=== PATIENT | female | born 1965 | race Caucasian/White ===

== ENCOUNTER 2020-07-30 13:56 | Outpatient (REF) | payer BC, SELFPAY ==
--- NOTE | 2020-07-30 | CT_ITS ---
EXAMINATION: CT SINUS WITHOUT CONTRAST CLINICAL INFORMATION: Nasal polyp. COMPARISON: Radiographs dated 01/17/2018; CT sinuses dated 01/26/2009. TECHNIQUE: Without the addition of intravenous contrast, multiple contiguous multidetector transaxial sections obtained through the paranasal sinuses. Multiplanar reformatted images are submitted. This CT examination was performed using dose optimization techniques as appropriate, variously including the following: *Automated exposure control *Adjustment of mA and/or kV according to patient size (this includes techniques or standardized protocols for targeted exams where dose is matched to indication/reason for exam; i.e. extremities or head) *Use of iterative reconstruction technique DLP: 108 mGy-cm FINDINGS: FRONTAL SINUSES AND DRAINAGE PATHWAYS: The bilateral frontal sinuses appear clear. There is marked mucosal thickening of the right frontoethmoidal recess. There is mild mucosal thickening of the left frontoethmoidal recess. MAXILLARY SINUSES AND DRAINAGE PATHWAYS: There is mild mucosal thickening at the bases of the bilateral maxillary sinuses. The infundibula are patent bilaterally. ETHMOID SINUSES: There is mucosal thickening of several bilateral ethmoid air cells, right greater than left. The ethmoid roofs are symmetric. SPHENOID SINUSES AND DRAINAGE PATHWAYS: The bilateral sphenoid sinus chambers show no focal mucosal thickening or fluid. The right sphenoid ostium is narrowed, and the left appears patent. The carotid canals are covered by bone. NASAL CAVITY/NASOPHARYNX: The nasal cavity is clear. There is a very mild leftward nasal septal deviation/spurring. The nasopharynx is symmetric. ADDITIONAL RELEVANT FINDINGS: No periapical disease is seen. The TMJs articulate normally. The orbits and skull base soft tissues are unremarkable. The middle ear cavities are clear. The right mastoid air cells are clear. There is opacification of numerous of the left mastoid air cells. Limited evaluation demonstrates no acute intracranial findings. IMPRESSION: 1. There is marked mucosal thickening of the right frontoethmoidal recess, and mild mucosal thickening is seen of the left frontoethmoidal recess. 2. There is mild bilateral maxillary sinusitis. 3. The bilateral ostiomeatal units appear patent. 4. There is narrowing of the right sphenoid ostium. 5. There is a very mild leftward nasal septal deviation. 6. There is opacification of numerous left mastoid air cells, which can be associated with mastoiditis.
== END 2020-07-30 13:57 | disposition home or self-care (01) ==
LOC: HO.CT 13:56
PROVIDERS: PCP Internal Medicine; Visit Provider Otolaryngology
DX: J33.9 Nasal polyp, unspecified (principal)
CPT/HCPCS: 70486

== ENCOUNTER 2021-01-11 06:32 | Outpatient (REF) | payer BC, SELFPAY ==
[2021-01-11 12:01] LABS: Alanine Aminotransferase 18 U/L (0-31); Anion Gap 13 (12-20); Aspartate Amino Transferase 14 U/L (5-31); Blood Urea Nitrogen 20 mg/dL (9-16); Calcium 9.2 mg/dL (8.4-10.2); Carbon Dioxide 29 mmol/L (22-29); Chloride 104 mmol/L (96-108); Cholesterol 208 mg/dL; Estimated Glomerular Filt Rate > 60; Glucose Fasting 88 mg/dL (60-99); HDL Cholesterol 68 mg/dL; LDL Cholesterol Calculated 107 mg/dl; Potassium 4.7 mmol/L (3.3-5.1); Sodium 141 mmol/L (135-145); Triglycerides 165 mg/dL
[2021-01-11 12:05] LABS: Free T4 (Free Thyroxine) 0.94 ng/dL (0.71-1.85); Thyroid Stimulating Hormone 0.63 uIU/mL (0.32-4.0)
== END 2021-01-11 06:33 | disposition home or self-care (01) ==
LOC: HO.HMGCLDS 06:32
PROVIDERS: PCP Internal Medicine; Visit Provider Internal Medicine
DX: E78.5 Hyperlipidemia, unspecified (principal); E03.9 Hypothyroidism, unspecified; I10 Essential (primary) hypertension
CPT/HCPCS: 36415; 80048; 80061; 84439; 84443; 84450; 84460

== ENCOUNTER 2021-01-13 16:01 | Outpatient (REF) | payer BC, SELFPAY ==
--- NOTE | ~2021-01-13 | XR_ITS ---
EXAMINATION: XR PELVIS CLINICAL INFORMATION: Paresthesia of skin COMPARISON: Bilateral hip radiographs 04/17/2019 TECHNIQUE: AP view of the pelvis. FINDINGS: There is no fracture or dislocation or destructive process. The SI joints and pubis are unremarkable. There is minor whiskering at the bilateral lateral iliac crests. The hip show no joint narrowing. Bowel gas normal. There are calcified phleboliths again seen in the lower left and right pelvis. XR/XR pelvis 1-2V IMPRESSION: Normal pelvis.
== END 2021-01-13 16:02 | disposition home or self-care (01) ==
LOC: HO.HMGCX 16:01
PROVIDERS: PCP Internal Medicine; Visit Provider Internal Medicine
DX: R20.2 Paresthesia of skin (principal); M79.609 Pain in unspecified limb
CPT/HCPCS: 72170

== ENCOUNTER 2021-01-26 13:40 | Outpatient (REF) | payer BC, SELFPAY ==
--- NOTE | ~2021-01-26 | US_ITS ---
EXAMINATION: US EXTRACRANIAL CAROTID DUPLEX, BILATERAL CLINICAL INFORMATION: History of familial heart disease COMPARISON: None TECHNIQUE: Real-time ultrasound and Doppler techniques (integrating B-mode 2-D vascular images, Doppler spectral analysis and color-flow Doppler imaging) were utilized to interrogate the extracranial carotid arteries, the vertebral arteries and proximal subclavian arteries bilaterally. The degree of stenosis is determined by criteria similar to NASCET. FINDINGS: Right Side: 1. There is calcified atherosclerotic plaque seen in the bifurcation/proximal ICA region. 2. The common carotid artery PSV proximally is 104 cm/s and distally 72 cm/s. 3. The proximal internal carotid artery velocities are 61 cm/s systolic and 18 cm/s diastolic. 4. The proximal external carotid artery PSV is 87 cm/s. 5. The vertebral artery shows antegrade flow. 6. The subclavian artery waveforms are normal. Left Side: 1. There is calcified atherosclerotic plaque seen in the bifurcation/proximal ICA region. 2. The common carotid artery PSV proximally is 97 cm/s and distally 73 cm/s. 3. The proximal internal carotid artery velocities are 62 cm/s systolic and 17 cm/s diastolic. 4. The proximal external carotid artery PSV is 64 cm/s. 5. The vertebral artery shows antegrade flow. 6. The subclavian artery waveforms are normal. US/US carotid duplex BI IMPRESSION: 1. RIGHT: Minimal, non-hemodynamically significant stenosis of the proximal right internal carotid artery corresponding to a 0-49% stenosis by velocity criteria. 2. LEFT: Minimal, non-hemodynamically significant stenosis of the proximal left internal carotid artery corresponding to a 0-49% stenosis by velocity criteria.
== END 2021-01-26 13:41 | disposition home or self-care (01) ==
LOC: HO.HMGCX 13:40
PROVIDERS: PCP Internal Medicine; Visit Provider Internal Medicine
DX: R42 Dizziness and giddiness (principal); Z86.79 Personal history of other diseases of the circulatory system
CPT/HCPCS: 93880

== ENCOUNTER 2021-03-23 09:52 | Outpatient (REF) | payer BC, SELFPAY ==
--- NOTE | 2021-03-23 09:55 | EMG_ITS ---
HISTORY: This is a 56-year-old woman with a history of ruptured thoracic disk in the past, who comes in with spasms in her legs intermittently and for a period, her legs were giving out, which they are no longer. She has hypothyroidism, hypertension and hyperlipidemia, for which she is on medications. NEUROLOGICAL EXAMINATION: Cranial nerves II through XII normal. Muscle tone and strength are normal. Reflexes symmetrical. Plantar responses are flexor. IMPRESSION: Rule out neuropathy, lumbar radiculopathy. 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 Normal EMG of the right L4-S1 innervated muscles. MD DONATO Marin/GE / [id number]
== END 2021-03-23 09:53 | disposition home or self-care (01) ==
LOC: HO.NEURO 09:52
PROVIDERS: PCP Internal Medicine; Visit Provider Internal Medicine
DX: M79.609 Pain in unspecified limb (principal); R20.2 Paresthesia of skin
CPT/HCPCS: 95885; 95912

== ENCOUNTER 2021-05-09 08:50 | Outpatient (REF) | payer BC, SELFPAY ==
--- NOTE | ~2021-05-09 | US_ITS ---
EXAMINATION: US THYROID CLINICAL INFORMATION: Nontoxic multinodular goiter. COMPARISON: None TECHNIQUE: Linear transducer grayscale and color Doppler examination with attention to the region of the thyroid. FINDINGS: SIZE: Measurements of the thyroid lobes and nodules are given in sagittal, anteroposterior and transverse dimensions respectively. Right Thyroid Lobe: 4.1 x 1.5 x 1.4 cm, volume 4.5 mL. Parenchyma: The gland echotexture is heterogeneous. Thyroid vascularity is normal. Left Thyroid Lobe: 3.3 x 1.1 x 1.2 cm, volume 2.3 mL. Parenchyma: The gland echotexture is heterogeneous. Thyroid vascularity is normal. Isthmus: 0.3 cm in maximum AP dimension. No focal thyroid nodule is seen. NODES: No lymphadenopathy is seen in the tissue surrounding the thyroid gland. US/US thyroid IMPRESSION: Diffusely heterogeneous lobulated thyroid gland with no focal nodule seen. ACR TI-RADS RECOMMENDATION REFERENCE: Ultrasound-guided fine-needle aspiration, followup ultrasound, no further follow up. * TR1 (0 point) and TR 2 (2 points): No FNA or follow up * TR3 (3 points): FNA if more than or equal to 2.5 cm in maximum dimension, followup ultrasound in 1, 3 and 5 years if 1.5 to 2.4 cm in maximum dimension. * TR4 (4-6 points): FNA if more than or equal to 1.5 cm in maximum dimension, followup ultrasound in 1, 2, 3 and 5 years if 1 to 1.4 cm in maximum dimension. * TR5 (more than or equal to 7 points): FNA if more than or equal to 1 cm in maximum dimension, followup ultrasound every year for 5 years if 0.5 to 0.9 cm in maximum dimension. * TR3, TR4 or TR5 nodules that are below the size threshold for follow up receive no follow up.
== END 2021-05-09 08:51 | disposition home or self-care (01) ==
LOC: HO.HMGCX 08:50
PROVIDERS: PCP Internal Medicine; Visit Provider Internal Medicine
DX: E04.2 Nontoxic multinodular goiter (principal)
CPT/HCPCS: 76536

== ENCOUNTER → 2021-05-24 11:31 | Outpatient (BNVA) | payer BC, SELFPAY | PROVIDERS: PCP Internal Medicine; Visit Provider Internal Medicine Pulmonary Disease ==

== ENCOUNTER 2021-06-10 13:54 | Outpatient (REF) | payer BC, SELFPAY ==
--- NOTE | ~2021-06-10 | CT_ITS ---
EXAMINATION: CT CHEST SCREENING CLINICAL INFORMATION: Nicotine dependence. COMPARISON: None. TECHNIQUE: Multidetector volumetric CT imaging of the chest is performed without contrast using low dose technique. Additional 2-D coronal and sagittal reformatted images and axial 3-D maximum intensity projection (MIP) images are generated on the CT workstation. This CT examination was performed using dose optimization techniques as appropriate, variously including the following: *Automated exposure control *Adjustment of mA and/or kV according to patient size (this includes techniques or standardized protocols for targeted exams where dose is matched to indication/reason for exam; i.e. extremities or head) *Use of iterative reconstruction technique DLP: 73 mGy-cm FINDINGS: LUNGS: The lungs are well expanded and clear of acute pneumonic process. There is a 3 mm nodule right middle lobe axial image 236/8, 4 mm nodule right lower lobe axial image 274/8, 2 mm nodule right lower lobe axial image 306/8, and 3 mm nodule left lower lobe axial image 342/8. A few punctate 1 mm nodules are seen scattered in the left lower lobe. MEDIASTINUM: The thyroid lobes are symmetrical and normal. The central trachea and the bronchi are widely patent. Heart size and the great vessels are normal caliber. There is no pericardial effusion. No abnormal sized mediastinal or hilar lymph nodes. PLEURA: There is no evidence of pleural effusion, thickening or calcification. AXILLA: There are no abnormal axillary lymph nodes. The chest wall is unremarkable. UPPER ABDOMEN: Visualized liver, spleen, pancreas and bilateral adrenal glands are unremarkable. OSSEOUS STRUCTURES: No bony abnormality. There is mild spondylosis. CT/CT lung screening IMPRESSION: Small pulmonary nodules measuring maximum 3 mm. ASSESSMENT: Lung-RADS category 2: Benign. RECOMMENDATION: Low-dose annual CT chest.
== END 2021-06-10 13:55 | disposition home or self-care (01) ==
LOC: HO.CT 13:54
PROVIDERS: Visit Provider Physician Assistant Medical
DX: F17.210 Nicotine dependence, cigarettes, uncomplicated (principal); F12.90 Cannabis use, unspecified, uncomplicated; E66.9 Obesity, unspecified; I10 Essential (primary) hypertension
CPT/HCPCS: 71271

== ENCOUNTER 2021-07-15 14:49 | Outpatient (REF) | payer BC, SELFPAY ==
--- NOTE | ~2021-07-15 | MM_ITS ---
EXAMINATION: MM SCREENING DIGITAL BREAST TOMOSYNTHESIS, BILATERAL CLINICAL INFORMATION: Screening. Asymptomatic. The lifetime risk of breast cancer based on the Tyrer-Cuzick Model is 8.5%. COMPARISON: Mammography: June 28, 2020 and studies dating back to September 26, 2012 TECHNIQUE: Digital breast tomosynthesis is performed in both the craniocaudal and mediolateral oblique views along with computer-aided detection (CAD). Synthesized 2D images are generated from the tomosynthesis. FINDINGS: There are scattered areas of fibroglandular density (ACR BI-RADS breast composition Category b). There are no significant masses, abnormal calcifications, or other abnormalities. MM/MM tomosynthesis screening BI IMPRESSION: There are no significant changes from prior study. ASSESSMENT: BI-RADS 1: Negative RECOMMENDATION: Routine annual mammography screening. This patient's information was entered into a reminder system with a target due date for their next mammogram.
== END 2021-07-15 14:50 | disposition home or self-care (01) ==
LOC: HO.MAMMO 14:49
PROVIDERS: Visit Provider Internal Medicine
DX: Z12.31 Encounter for screening mammogram for malignant neoplasm of breast (principal)
CPT/HCPCS: 77063; 77067

== ENCOUNTER 2021-08-02 07:23 | Outpatient (REF) | payer BC, SELFPAY ==
[2021-08-02 12:13] LABS: Alanine Aminotransferase 24 U/L (0-31); Aspartate Amino Transferase 18 U/L (5-31); Cholesterol 180 mg/dL; HDL Cholesterol 53 mg/dL; LDL Cholesterol Calculated 88 mg/dl; Triglycerides 198 mg/dL
[2021-08-02 12:40] LABS: Free T4 (Free Thyroxine) 1.01 ng/dL (0.71-1.85); Thyroid Stimulating Hormone 1.01 uIU/mL (0.32-4.0); Vitamin D 25-OH Total 58.1 ng/mL (>30)
== END 2021-08-02 07:24 | disposition home or self-care (01) ==
LOC: HO.HMGCLDS 07:23
PROVIDERS: PCP Internal Medicine; Visit Provider Internal Medicine
DX: E03.9 Hypothyroidism, unspecified (principal); E78.5 Hyperlipidemia, unspecified; I10 Essential (primary) hypertension
CPT/HCPCS: 36415; 80061; 82306; 84439; 84443; 84450; 84460

== ENCOUNTER 2021-10-28 11:39 | Outpatient (REF) | payer BC, SELFPAY ==
--- NOTE | ~2021-10-28 | XR_ITS ---
EXAMINATION: CR X-RAY KNEES BILATERAL CLINICAL INFORMATION: Progressive slight syndrome. COMPARISON: None TECHNIQUE: 2 views each of the bilateral knees were obtained. FINDINGS: Mild right medial femoral-tibial and mild patellofemoral degenerative joint changes are seen. There is no acute fracture, dislocation or joint effusion. The soft tissues are unremarkable. XR/XR knee RT 2V IMPRESSION: Mild degenerative joint changes bilaterally most consistent with osteoarthritis. No acute abnormality.
--- NOTE | ~2021-10-28 | XR_ITS ---
EXAMINATION: CR X-RAY KNEES BILATERAL CLINICAL INFORMATION: Progressive slight syndrome. COMPARISON: None TECHNIQUE: 2 views each of the bilateral knees were obtained. FINDINGS: Mild right medial femoral-tibial and mild patellofemoral degenerative joint changes are seen. There is no acute fracture, dislocation or joint effusion. The soft tissues are unremarkable. XR/XR knee LT 2V IMPRESSION: Mild degenerative joint changes bilaterally most consistent with osteoarthritis. No acute abnormality.
--- NOTE | ~2021-10-28 | XR_ITS ---
EXAMINATION: XR ANKLE, RIGHT CLINICAL INFORMATION: Restless leg syndrome. COMPARISON: None TECHNIQUE: AP, lateral, and mortise views of the right ankle. FINDINGS: The ankle joint and mortise are intact. Mild degenerative changes are seen along the lateral corner of the tibiotalar joint space with subcortical cystic changes in the adjacent fibula. There is no acute fracture or dislocation. There is no joint effusion. Mild soft tissue swelling is seen. XR/XR ankle RT min 3V IMPRESSION: Mild lateral tibiotalar degenerative joint changes and mild soft tissue swelling without acute osseous abnormality.
== END 2021-10-28 11:40 | disposition home or self-care (01) ==
LOC: HO.HMGCX 11:39
PROVIDERS: PCP Internal Medicine; Visit Provider Psychiatry & Neurology Neurology
DX: G25.81 Restless legs syndrome (principal)
CPT/HCPCS: 73560; 73610

== ENCOUNTER 2022-01-31 13:52 | Outpatient (REF) | payer BC, SELFPAY ==
[2022-01-31 16:47] LABS: Appearance Urine HAZY; Color Urine YELLOW; Glucose Urine UA NEG (NEG); Leukocyte Esterase Urine TRACE (NEG); Nitrite Urine NEG (NEG); Specific Gravity - Urine 1.025 (1.005-1.025); UACC Culture Trigger YES; Urine Blood NEG (NEG); Urine Ketones NEG (NEG); Urine Protein NEG (NEG-TRACE)
[2022-01-31 17:51] LABS: Bacteria Urine 4+ /LPF; RBC Urine 0 /HPF (0); Squamous Epithelial Cell Urine 4+ /LPF
== END 2022-01-31 13:53 | disposition home or self-care (01) ==
LOC: HO.HMGCLDS 13:52
PROVIDERS: Visit Provider Internal Medicine
DX: R30.0 Dysuria (principal)
CPT/HCPCS: 81001; 81003; 87086

== ENCOUNTER 2022-04-21 09:42 | Outpatient (REF) | payer BC, SELFPAY ==
[2022-04-21 11:14] LABS: MANUAL DIFF FLAG NO
[2022-04-21 11:18] LABS: Basophils Absolute Auto 0.1 X10*3/uL (0.0-0.2); Basophils Percent Auto 0.6 % (0-2); Eosinophils Absolute Auto 0.5 X10*3/uL (0.0-0.4); Eosinophils Percent Auto 6.1 % (0-4); Hematocrit 45.3 % (37.0-47.0); Hemoglobin 15.1 g/dl (12.0-16.0); Imm Gran Abs Auto 0.03 X10*3/uL (0.00-0.03); Imm Gran Pct Auto 0.4 % (0.0-0.4); Lymphocytes Absolute Auto 1.7 X10*3/uL (1.2-4.9); Lymphocytes Percent Auto 20.8 % (20-40); Mean Corpuscular HGB Conc 33.3 g/dl (31.0-35.0); Mean Corpuscular Hemoglobin 32.1 pg (27.0-33.0); Mean Corpuscular Volume 96.2 fL (80.0-98.0); Mean Platelet Volume 10.4 fL (9.4-12.3); Monocytes Absolute Auto 0.7 X10*3/uL (0.1-1.2); Neutrophils Absolute Auto 5.2 x10*3/uL (2.0-8.3); Neutrophils Percent Auto 63.1 % (45-73); Platelet Count 269 X10*3/uL (160-400); Red Blood Count 4.71 X10*6/uL (4.20-5.50); Red Cell Distribution Width 13.7 % (11.0-16.0); White Blood Count 8.2 X10*3/uL (4.8-10.8)
[2022-04-21 11:44] LABS: Alanine Aminotransferase 19 U/L (0-31); Anion Gap 12 (12-20); Aspartate Amino Transferase 16 U/L (5-31); Blood Urea Nitrogen 11 mg/dL (9-16); Calcium 9.5 mg/dL (8.4-10.2); Carbon Dioxide 27 mmol/L (22-29); Chloride 104 mmol/L (96-108); Cholesterol 183 mg/dL; Estimated Glomerular Filt Rate > 60; Glucose Fasting 93 mg/dL (60-99); HDL Cholesterol 54 mg/dL; LDL Cholesterol Calculated 110 mg/dl; Potassium 4.7 mmol/L (3.3-5.1); Sodium 138 mmol/L (135-145); Triglycerides 95 mg/dL
[2022-04-21 11:58] LABS: Free T4 (Free Thyroxine) 1.21 ng/dL (0.71-1.85); Thyroid Stimulating Hormone 1.56 uIU/mL (0.32-4.0); Vitamin D 25-OH Total 52.9 ng/mL (>30)
== END 2022-04-21 09:43 | disposition home or self-care (01) ==
LOC: HO.HMGCLDS 09:42
PROVIDERS: Visit Provider Internal Medicine
DX: E04.2 Nontoxic multinodular goiter (principal); G43.009 Migraine without aura, not intractable, without status migrainosus; E78.5 Hyperlipidemia, unspecified; I10 Essential (primary) hypertension; E03.9 Hypothyroidism, unspecified; M79.609 Pain in unspecified limb; R20.2 Paresthesia of skin; R42 Dizziness and giddiness; Z78.0 Asymptomatic menopausal state
CPT/HCPCS: 36415; 80048; 80061; 82306; 84439; 84443; 84450; 84460; 85025

== ENCOUNTER 2022-05-08 10:52 | Outpatient (REF) | payer BC, SELFPAY ==
--- NOTE | ~2022-05-08 | XR_ITS ---
EXAMINATION: XR LUMBOSACRAL SPINE WITH OBLIQUES CLINICAL INFORMATION: Lower back pain. COMPARISON: Report of radiographs dated 11/01/2005. TECHNIQUE: AP, both oblique, and lateral views of the lumbar spine. Lateral view of the lumbosacral junction. FINDINGS: Vertebral body heights and alignment are normal. The disc spaces are well-maintained. No acute fracture or spondylolisthesis is seen. There is multi-level mild lumbar spondylosis. The posterior elements are intact. No spondylolysis defect is seen on the oblique views. There are aortoiliac atherosclerotic calcifications. XR/XR lumbar spine 4V min IMPRESSION: 1. No acute fracture or spondylolisthesis is seen. 2. The lumbar disc spaces are well-maintained. 3. There is multi-level lumbar spondylosis.
== END 2022-05-08 10:53 | disposition home or self-care (01) ==
LOC: HO.HMGCX 10:52
PROVIDERS: Visit Provider Internal Medicine
DX: M54.50 Low back pain, unspecified (principal); G89.29 Other chronic pain
CPT/HCPCS: 72110

== ENCOUNTER 2022-07-18 13:48 | Outpatient (REF) | payer BC, SELFPAY ==
--- NOTE | ~2022-07-18 | MM_ITS ---
EXAMINATION: MM SCREENING DIGITAL BREAST TOMOSYNTHESIS, BILATERAL CLINICAL INFORMATION: Screening. Asymptomatic. The lifetime risk of breast cancer based on the Tyrer-Cuzick Model is 7%. COMPARISON: Mammography: 07/15/2021, 06/28/2020, 06/23/2019 TECHNIQUE: Digital breast tomosynthesis is performed in both the craniocaudal and mediolateral oblique views along with computer-aided detection (CAD). Synthesized 2D images are generated from the tomosynthesis. FINDINGS: There are scattered areas of fibroglandular density (ACR BI-RADS breast composition Category b). There are no significant masses, abnormal calcifications, or other abnormalities. Parenchymal pattern is similar to prior studies. There is no architectural abnormality. The axilla and skin contours are unremarkable. No significant changes. MM/MM tomosynthesis screening BI IMPRESSION: No mammographic evidence of malignancy. ASSESSMENT: BI-RADS 1: Negative RECOMMENDATION: Routine annual mammography screening. This patient's information was entered into a reminder system with a target due date for their next mammogram.
== END 2022-07-18 13:49 | disposition home or self-care (01) ==
LOC: HO.MAMMO 13:48
PROVIDERS: PCP Internal Medicine; Visit Provider Internal Medicine
DX: Z12.31 Encounter for screening mammogram for malignant neoplasm of breast (principal)
CPT/HCPCS: 77063; 77067

== ENCOUNTER 2022-07-26 14:00 | Outpatient (RCR) | payer BC, SELFPAY ==
--- NOTE | 2022-10-26 08:08 | MHC.PT.DC ---
[facility] [place] Office [place] [facility] [place] Office [address] [phone] F: [phone] F: [phone] F: [phone] F: [phone] Physical Therapy Discharge Report Diagnosis: LBP Date of Surgery: Date of Evaluation: 07/04/22 Date of Discharge: Treatments to Date: 4 Cancellations to Date: No Shows to Date: Discharge Status: Patient Elected to Stop Discharge Summary: Pt L>R L.E weaker and L L/S pain. Pt tender with rolling ITB's. Progress strengthening as stephani NV Electronically signed by: Ole Chen PT. Please sign and return to therapist. Thank you for your referral.
== END 2022-10-26 08:09 | disposition home or self-care (01) ==
LOC: HO.PTCHIC 14:00
PROVIDERS: PCP Internal Medicine; Visit Provider Internal Medicine
DX: M54.50 Low back pain, unspecified (principal); G89.29 Other chronic pain
CPT/HCPCS: 97014; 97110; 97140; 97161

== ENCOUNTER 2022-09-27 06:59 | Outpatient (REF) | payer BC, SELFPAY ==
[2022-09-27 11:39] LABS: Alanine Aminotransferase 21 U/L (0-31); Anion Gap 14 (12-20); Aspartate Amino Transferase 17 U/L (5-31); Blood Urea Nitrogen 14 mg/dL (9-16); Calcium 9.2 mg/dL (8.4-10.2); Carbon Dioxide 27 mmol/L (22-29); Chloride 106 mmol/L (96-108); Cholesterol 197 mg/dL; Estimated Glomerular Filt Rate > 60; Glucose Fasting 95 mg/dL (60-99); HDL Cholesterol 66 mg/dL; LDL Cholesterol Calculated 104 mg/dl; Potassium 4.6 mmol/L (3.3-5.1); Sodium 142 mmol/L (135-145); Triglycerides 138 mg/dL
[2022-09-27 11:47] LABS: Free T4 (Free Thyroxine) 1.02 ng/dL (0.71-1.85); Thyroid Stimulating Hormone 3.71 uIU/mL (0.32-4.0); Vitamin D 25-OH Total 43.3 ng/mL (>30)
== END 2022-09-27 07:00 | disposition home or self-care (01) ==
LOC: HO.HMGCLDS 06:59
PROVIDERS: PCP Internal Medicine; Visit Provider Internal Medicine
DX: E03.9 Hypothyroidism, unspecified (principal); E78.5 Hyperlipidemia, unspecified; I10 Essential (primary) hypertension; Z78.0 Asymptomatic menopausal state
CPT/HCPCS: 36415; 80048; 80061; 82306; 84439; 84443; 84450; 84460

== ENCOUNTER 2023-04-26 12:37 | Outpatient (REF) | payer BC, SELFPAY ==
--- NOTE | ~2023-04-26 | US_ITS ---
EXAMINATION: US LOWER EXTREMITY VENOUS (REFLUX EXAM), BILATERAL CLINICAL INDICATION: Chronic venous insufficiency with lower extremity edema COMPARISON: None. TECHNIQUE: Color flow triplex imaging and compression Doppler was performed to evaluate both the deep and the superficial systems bilaterally. To evaluate the superficial system, the examination was performed in the upright position. Color-flow Doppler ultrasound and compression ultrasound were utilized. In addition, maneuvers were utilized to demonstrate reflux. FINDINGS: 1. DEEP VENOUS ULTRASOUND OF THE RIGHT LOWER EXTREMITY: Common Femoral Vein: Compressible, normal respiratory variation and augmented flow. Femoral Vein: Compressible, normal color flow and augmentation. Popliteal Vein: Compressible, normal augmentation. Deep Reflux: Deep venous reflux is seen in the popliteal vein measuring 1608 ms There is no evidence of a Rider's cyst. 2. SUPERFICIAL ULTRASOUND WITH DOPPLER OF RIGHT LOWER EXTREMITY: GREAT SAPHENOUS VEIN: Saphenofemoral Junction: 0.5 cm; Reflux: 0 ms Proximal Thigh: 0.6 cm; Reflux: 0 ms Mid Thigh: 0.2 cm; Reflux: 0 ms Above Knee: 0.4 cm; Reflux: 0 ms At Knee: 0.3 cm; Reflux: 0 ms Below Knee: 0.1 cm; Reflux: 0 ms Mid Calf: 0.3 cm; Reflux: 0 ms Ankle: 0.3 cm; Reflux: 0 ms DUPLICATED MEDIAL GREAT SAPHENOUS VEIN: Diameter: None imaged Reflux: NA DUPLICATED LATERAL GREAT SAPHENOUS VEIN: Diameter: 0.3 cm Reflux: None SMALL SAPHENOUS VEIN: Proximal: 0.4 cm; Reflux: 0 ms Distal: 0.1 cm; Reflux: 0 ms VEIN OF GIACOMINI: Size: NA Reflux: NA PERFORATORS: Location: None imaged Size: NA Reflux: NA VARICOSITIES: Location: None imaged Size: NA Reflux: NA 3. DEEP VENOUS ULTRASOUND OF THE LEFT LOWER EXTREMITY: Common Femoral Vein: Compressible, normal respiratory variation and augmented flow. Femoral Vein: Compressible, normal color flow and augmentation. Popliteal Vein: Compressible, normal augmentation. Deep Reflux: There is no evidence of reflux in the deep system in either the common femoral vein or the popliteal vein. There is no evidence of a Rider's cyst. 4. SUPERFICIAL ULTRASOUND WITH DOPPLER OF LEFT LOWER EXTREMITY: GREAT SAPHENOUS VEIN: Saphenofemoral Junction: 0.7 cm; Reflux: 0 ms Proximal Thigh: 0.8 cm; Reflux: 0 ms Mid Thigh: 0.3 cm; Reflux: 0 ms Above Knee: 0.2 cm; Reflux: 0 ms At Knee: 0.2 cm; Reflux: 0 ms Below Knee: 0.2 cm; Reflux: 0 ms Mid Calf: 0.2 cm; Reflux: 0 ms Ankle: 0.2 cm; Reflux: 0 ms DUPLICATED MEDIAL GREAT SAPHENOUS VEIN: Diameter: None imaged Reflux: NA DUPLICATED LATERAL GREAT SAPHENOUS VEIN: Diameter: None imaged Reflux: NA SMALL SAPHENOUS VEIN: Proximal: 0.3 cm; Reflux: 0 ms Distal: 0.1 cm; Reflux: 0 ms VEIN OF GIACOMINI: Size: NA Reflux: NA PERFORATORS: Location: None imaged Size: NA Reflux: NA VARICOSITIES: Location: None Imaged Size: NA Reflux: NA US/US venous duplex LE BI IMPRESSION: Right: Deep venous reflux seen in the right popliteal vein. No evidence of significant reflux in the great saphenous or small saphenous vein Left: No significant reflux in the great saphenous or small saphenous vein
== END 2023-04-26 12:38 | disposition home or self-care (01) ==
LOC: HO.US 12:37
PROVIDERS: PCP Internal Medicine; Visit Provider Internal Medicine
DX: R60.0 Localized edema (principal)
CPT/HCPCS: 93970

== ENCOUNTER 2023-05-26 10:10 | Outpatient (REF) | payer BC, SELFPAY ==
[2023-05-26 12:03] LABS: Alanine Aminotransferase 18 U/L (0-31); Anion Gap 19 (12-20); Aspartate Amino Transferase 16 U/L (5-31); Blood Urea Nitrogen 10 mg/dL (9-16); Calcium 10.1 mg/dL (8.4-10.2); Carbon Dioxide 19 mmol/L (22-29); Chloride 107 mmol/L (96-108); Cholesterol 200 mg/dL; Estimated Glomerular Filt Rate > 60; Glucose Fasting 100 mg/dL (60-99); HDL Cholesterol 51 mg/dL; LDL Cholesterol Calculated 112 mg/dl; Potassium 4.1 mmol/L (3.3-5.1); Sodium 141 mmol/L (135-145); Triglycerides 187 mg/dL
[2023-05-26 12:18] LABS: Free T4 (Free Thyroxine) 1.22 ng/dL (0.71-1.85); Thyroid Stimulating Hormone 0.09 uIU/mL (0.32-4.0)
== END 2023-05-26 10:11 | disposition home or self-care (01) ==
LOC: HO.HMGCLDS 10:10
PROVIDERS: PCP Internal Medicine; Visit Provider Internal Medicine
DX: E03.9 Hypothyroidism, unspecified (principal); E78.5 Hyperlipidemia, unspecified; I10 Essential (primary) hypertension; J45.20 Mild intermittent asthma, uncomplicated; Z78.0 Asymptomatic menopausal state
CPT/HCPCS: 36415; 80048; 80061; 82306; 84439; 84443; 84450; 84460

== ENCOUNTER 2023-05-29 12:26 | Outpatient (AMB) | payer BC, SELFPAY ==
[2023-05-29 12:54] VITALS: BP 120/82; PULSE 84; O2SAT 97; BMI 39.1
--- NOTE | 2023-05-29 12:54 | A.OFFPC_ITS ---
Vital Signs 05/29/23 12:54 Height 5 ft 6 in Weight 242 lb BMI 39.1 BP 120/82 Blood Pressure Location Rt brachial Position Sitting Pulse 84 Pulse Source Pulse Oximeter Pulse Oximetry (%) 97 Oxygen Delivery Method Room Air Intake Visit Reasons: Annual PE Intake Note: Pt is here today for her PE Allergies hayfever Allergy (Uncoded 05/29/23 13:04) Rash Medication List - Last Reconciled 05/29/23 by Kelsey Keith MD albuterol sulfate 90 mcg/actuation (ProAir HFA) 1 inh inhalation QID PRN atorvastatin 20 mg PO DAILY eszopiclone (Lunesta) 3 mg PO BEDTIME PRN fluticasone propion-salmeterol 100-50 mcg/dose 1 ea inhalation BID ibuprofen 800 mg PO Q12H PRN levothyroxine 137 mcg PO QAM metoprolol succinate ER 50 mg PO DAILY Tobacco use date assessed: 05/29/23 Dental Screening Dental Screen Date: 05/29/23 Did you have a dental visit in the last 12 months?: Yes Did you have a dental problem in the last 6 months where you did not have access to dental care?: Yes Was dental information given to patient?: Patient has dentist HPI Annual PE HPI Details 58-year-old lady here today for physical exam. She has multinodular thyroid with hypothyroidism, hypertension, dyslipidemia, mild intermittent asthma, stable controlled on present treatment. She is a smoker, not ready to quit smoking. Overdue for her low-dose CT scan screening, last 1 done was in 2020 at [place]. Patient states that she never received a telephone call to come back in 2021. 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 She states that she had her colonoscopy screening at [place], about 3-4 years ago will get a copy of results, which was benign per patient. She sees an OBGYN in [facility] for her routine Pap and pelvic exam, has an appointment later this year, advised patient to send us a copy of her Pap smear results as well. Declines to get COVID vaccine or flu shot, will give pneumococcal vaccine on this visit. Complains of having intermittent episodes of unprovoked left-sided chest pain, which last only several seconds and resolved spontaneously. No accompanying shortness of breath, lightheadedness, nausea, vomiting reported. [facility] Medical History Abnormal nerve conduction studies Acquired hypothyroidism Allergic rhinitis Bilateral lower extremity edema Chronic left mastoiditis Deviated nasal septum Dyslipidemia Essential hypertension Insomnia Intermittent left-sided chest pain Migraine Mild intermittent asthma Multinodular thyroid Not ready to quit smoking Obesity Peroneal neuropathy Personal history of nicotine dependence Pulmonary nodule Surgical History History of carpal tunnel surgery of right wrist History of section History of esophagogastroduodenoscopy (EGD) (~2017) History of thoracic surgery (~2006) History of tonsillectomy Family History Father Heart disease Emphysema, unspecified Mother HTN (hypertension) Hyperlipidemia Paternal Aunt Breast cancer Paternal Uncle Cancer of prostate Brother No problems noted. Brother No problems noted. Daughter No problems noted. Social History Housing: House Alcohol intake: current Patient Tobacco Use Status: Current everyday Tobacco user Tobacco use type: Cigarette Cigarette Packs Per Day: 1 Years Smoked: 42 (onset 14yo, 1ppd x 42yrs, 40pyh) e-Cigarette/Vaping Use: Never Used Second Hand Smoke Exposure: No Current occupational status: employed Current occupation: assisting cook Current occupational exposures/hazards: No Cognitive needs: No Hearing needs: No Vision needs: No Female Reproductive History Menstrual Other: Goes to her OBGYN in [place] for her routine Pap and pelvic exam, appointment already scheduled for later this month, gets her screening mammogram at [facility], request copy of latest mammogram results Questionnaire PHQ-9 Over the last 2 weeks, how often have you been bothered by any of the following problems? 1. Little interest or pleasure in doing things: not at all 2. Feeling down, depressed, or hopeless: not at all 3. Trouble falling or staying asleep, or sleeping too much: several days 4. Feeling tired or having little energy: several days 5. Poor appetite or overeating: not at all 6. Feeling bad about yourself - or that you are a failure or have let yourself or your family down: not at all 7. Trouble concentrating on things, such as reading the newspaper or watching television: not at all 8. Moving or speaking so slowly that other people could have noticed. Or the opposite - being so fidgety or restless that you have been moving around a lot more than usual: not at all 9. Thoughts that you would be better off or of hurting yourself in some way: not at all Total score: 2 Depression Screening Interpretation: Negative 31643 - PHQ-9 Billing: Yes Source: Developed by Drs. Flynn Gotti, Samantha Jolley, Sebastián Childress and colleagues, with an educational collette from [email or web address]. Thrive Questionnaire Date Thrive assessed: 05/29/23 I am a: Patient What is your living situation today?: I have a steady place to live Within the past 12 months, did the food you bought not last and you didn't have the money to get more?: Never true Within the past 12 months, did you worry whether your food would run out before you got money to buy more?: Never true Do you have trouble paying for medicines?: No Do you have trouble getting transportation to medical appointments?: No Do you have trouble paying your heating and electricity bill?: No Do you have trouble taking care of your child, family member or friend?: No Do you have trouble with day-to-day activities such as bathing, preparing meals, shopping, managing finances, etc.?: No Are you currently unemployed and looking for a job?: No Are you interested in more education?: No AUDIT C Alcohol Use Questionnaire (AUDIT-C) 1. How often do you have a drink containing alcohol?: 2-3 times a week 2. How many drinks containing alcohol do you have on a typical day when you are drinking?: 3 or 4 3. How often do you have six or more drinks on one occasion?: Less than monthly Total Score: 5 ALESSIO-7 AMB Questionnaire ALESSIO-7 Date ALESSIO - 7 assessed: 05/29/23 Feeling nervous, anxious, or on edge: 0 = Not at all Not being able to stop or control worryin = Several days Worrying too much about different things: 1 = Several days Trouble relaxin = Not at all Being so restless that it is hard to sit still: 0 = Not at all Becoming easily annoyed or irritable: 0 = Not at all Feeling afraid as if something awful might happen: 0 = Not at all Total ALESSIO-7 score (0-4 normal; 5-9 mild; 10-14 moderate; 15-21 severe): 2 Source: Developed by Drs. Flynn Gotti, Samantha Jolley, Sebastián Childress and colleagues, with an educational collette from [email or web address]. ALESSIO-7 Assessment Billing ALESSIO-7 Assessment Tool: ALESSIO-7 Assessment 33600 Review of Systems Const Reports difficulty sleeping, Reports fatigue, Denies fever(s), Denies headache(s), Denies weakness and Reports weight loss Eyes Reports no additional complaints ENT Denies dizziness, Denies headache(s), Denies hoarseness, Denies nasal congestion , Denies nasal discharge, Denies neck pain, Denies post nasal drip and Denies sore throat Card Denies chest pain, Denies syncope and Denies lightheadedness Resp Denies chest congestion and Denies cough GI Reports no additional complaints Denies urinary frequency, Denies dysuria and Denies urinary urgency Musc Reports as per HPI and Denies neck pain Skin/Breast Reports as per HPI Neuro Denies dizziness, Denies syncope, Denies headache(s) and Denies weakness Psych Reports no additional complaints Endo Reports no additional complaints and Reports fatigue Earl/Lymph Reports no additional complaints Aller/Immun Reports no additional complaints Physical exam (Primary Care) Vital Signs: Last Vital Signs Pulse 84 05/29/23 12:54 BP 120/82 05/29/23 12:54 Pulse Ox 97 05/29/23 12:54 Oxygen Delivery Method Room Air 05/29/23 12:54 BMI result Body Mass Index 39.1 BMI Assessment/Plan discussion: High BMI High, discussed plan: lifestyle, weight reduction, dietary and physical activity Tobacco/Smoking Status: Tobacco use Status Tobacco use date assessed 05/29/23 05/29/23 13:03 Patient Tobacco Use Status Current everyday Tobacco 05/29/23 12:56 Tobacco use type Cigarette 05/29/23 12:56 e-Cigarette/Vaping Use Never Used 05/29/23 12:56 Are you ready to quit: No Tobacco cessation counseling provided: Yes Depression Screening Interpretation: Negative Thrive Assessment: Date of Thrive Assessment Date Thrive assessed 04/28/22 05/29/23 12:56 Const General: comfortable and no acute distress Orientation/consciousness: patient oriented x3 [facility] General nose exam: Normal external nose present and No nasal discharge present Mouth: Normal oral and palatal mucosa present and moist mucous membranes Eyes General: appearance normal, both eyes and all related structures Conjunctivae: conjunctivae normal Sclerae: sclerae normal Pupils: Equal, round and reactive pupils present EOM: EOMs intact bilaterally Neck Neck: Yes full ROM, Yes no lymphadenopathy and Yes supple Chest Other: No reproducible pain on palpation over anterior chest wall. Chest palpation & inspection: normal inspection of the chest and normal palpation of entire chest wall Breast/axilla inspection: normal inspection of the breasts and normal inspection of the axillae Breast/axilla palpation: normal palpation of the breasts and normal palpation of the axillae Resp Effort & Inspection: normal respiratory effort and able to speak in complete sentences Auscultation: clear to auscultation bilaterally Cardio Rate: regular rate Rhythm: regular rhythm Heart sounds: S1 normal heart sound present and S2 normal heart sound present GI Inspection: Yes normal to inspection and Yes obesity Palpation (GI): Soft to palpation, nontender, no guarding and no masses General: Yes no CVA tenderness and Yes deferred (Sees her OBGYN in [place] later this month.) Back/Spine/Pelvis Back: no CVA tenderness and No back tenderness Skin General skin exam: no rashes or lesions noted Neuro General: patient oriented x3, gait normal, tone normal, Normal light touch and pain sensation and no focal motor deficits Cranial nerves: Yes Equal, round and reactive pupils present Extrem General: Yes full ROM, Yes no joint enlargement and Yes normal gait Psych Appearance: grossly normal and well kempt Mental Status: mental status grossly normal Speech and movement: Normal speech and movement present Affect: normal affect Thought process: Normal thought process present Immunizations pneumoc 20-cat conj-dip cr(PF) Performing Provider: Kelsey Keith MD Administered by: Keisha Allen CMA on 05/29/23 13:41 Dose Route Admin Location Lot Number Expiration Date [place] Electrophysiology Technologist 0.5 mL IM Right Deltoid [id number] 07/28/24 [id number] [employer] VIS Given Date VIS Provided VIS Publication Date 05/29/23 Single Vaccine 21 Eligibility Eligibility Date Funding Source Not VFC Eligible 05/29/23 Private Results Reviewed Results Reviewed: ENTERED: 05/26/23-1014 [facility]OR[facility] MONTES: ORDERED: Met Prof Fast, AST, ALT, Lipid Panel, Vitamin D 25-OH, Free T4, TSH Test Result Flag Reference Site Sodium 141 135-145 mmol/L Potassium 4.1 3.3-5.1 mmol/L CL 107 96-108 mmol/L CO2 19 L 22-29 mmol/L Gap 19 12-20 BUN 10 9-16 mg/dL Creat 0.70 0.5-1.4 mg/dL EGFR > 60 NOTE: For -[place] individuals, multiply the result by 1.210. Chronic Kidney Disease: Estimated GFR < 60 mL/min/1.73m2 Severe Kidney Disease: Estimated GFR < 15 mL/min/1.73m2 FBS 100 H 60-99 mg/dL A fasting glucose from 100-125 mg/dl is considered impaired (pre-diabetes). CA 10.1 # 8.4-10.2 mg/dL AST (GOT) 16 5-31 U/L ALT (GPT) 18 0-31 U/L Triglyceride 187 mg/dL Desirable Triglyceride: less than 150 mg/dL Borderline High Triglyceride 150-199 mg/dL High Triglyceride: 200-499 mg/dL Very High Triglyceride: greater than or equal to 5OO mg/dL Chol 200 mg/dL Desirable Cholesterol: less than 200 mg/dL Borderline High Cholesterol: 200-239 mg/dL High Cholesterol: greater than 239 mg/dL LDL Calculated 112 mg/dl Desirable LDL: less than 100 mg/dL Near Optimal/Above Optimal LDL: 110-129 mg/dL Borderline High LDL: 130-159 mg/dL High LDL: 160-189 mg/dL Very High LDL: greater than or equal to 190 mg/dL HDL 51 mg/dL Desirable HDL: greater than 40 mg/dL Note: This HDL assay may give artificially low results in patients with liver disease. Vit D 25-OH Tot 61.0 >30 ng/mL Health Based Reference Values* < 20 ng/mL Deficient 20-30 ng/mL Insufficient > 30 ng/mL Sufficient *Mena FARNSWORTH. N Engl J Med. 2007;[id number]:266-280 Care must be taken in interpreting Vitamin D results from different laboratories and methodologies. Published data demonstrated that results from patients undergoing hemodialysis may show a negative bias when tested with various automated 25-OH vitamin D assays when compared to LC-MS/MS. When testing samples from patients whose predominant form of Vitamin D is Vitamin D2, such as patients receiving Vitamin D2 supplementation, results that are subtherapeutic should be confirmed with another method such as LC-MS/MS. Free T4 1.22 0.71-1.85 ng/dL TSH 3rd Gen. 0.09 L 0.32-4.0 uIU/mL Laboratory Tests 04/21/22 09:46 WBC 8.2 Hgb 15.1 Hct 45.3 RDW 13.7 Plt Count 269 Assessment and Plan Assessment & Plan (1) Annual visit for general adult medical examination with abnormal findings: Code(s): Z00.01 - Encounter for general adult medical examination with abnormal findings Plan: Reviewed recent labs with patient. Recommended dental visit every 6 months and regular eye exams, at least every 2 years. Take adequate calcium in diet and vitamin-D 3 at 2000 IU per cap once a day, in addition to weight-bearing ex ercises to help maintain good muscle tone and weight control. Instructed to do self-breast exam, and continue to get yearly mammogram, which he gets at [facility], copy of results requested. She goes to her OBGYN in [place] for routine Pap and pelvic exam, scheduled to have another 1 later this year, reminded again to provide us with a copy of her Pap smear results. She has had COVID vaccines but does not want to get the booster. Recommend to get yearly flu vaccine, under 20 given today, reminded also to get her 2nd dose of Shingrix vaccination. (2) Essential hypertension: Code(s): I10 - Essential (primary) hypertension Plan: Blood pressure at goal of less than 130/80. Continue with metoprolol succinate 50 mg daily. Reinforced importance of following a low sodium diet, getting regular exercise, and lowering stress levels. (3) Intermittent left-sided chest pain: Code(s): R07.89 - Other chest pain Plan: EKG done today showed presence of sinus bradycardia with no acute ST-T changes. Reviewed recent labs which not show any anemia, thyroid levels are within normal limits. Cardiology consult ordered (4) Pulmonary nodule: Code(s): R91.1 - Solitary pulmonary nodule Plan: Referred to thoracic surgery again for low-dose lung cancer screening. (5) Not ready to quit smoking: Code(s): Z72.0 - Tobacco use Plan: Patient strongly advised to stop smoking, as smoking damages blood vessels, degenerative of joints and spine, damage to lungs and heart., predisposes to developing certain cancers like lung, breast, bladder, colon. Recommended to try decreasing cigarette use by 1-2 cigarettes a day. Advised to monitor what triggers are for smoking so that this can be discussed on the next office visit. We can discuss different options to quit smoking when ready. (6) Insomnia: Code(s): G47.00 - Insomnia, unspecified Plan: Currently takes eszopiclone 3 mg at bedtime as needed. (7) Multinodular thyroid: Code(s): E04.2 - Nontoxic multinodular goiter Plan: Thyroid levels are within normal limits continued on levothyroxine 137 mcg daily in a.m. an hour before breakfast and only with glass of water. (8) Mild intermittent asthma: Code(s): J45.20 - Mild intermittent asthma, uncomplicated Qualifiers: Asthma complication type: uncomplicated Qualified Code(s): J45.20 - Mild intermittent asthma, uncomplicated Plan: Stable controlled on her fluticasone-salmeterol inhaler, rarely needing to use her albuterol inhaler, strongly encouraged to quit smoking. Prevnar 20 given today (9) Dyslipidemia: Code(s): E78.5 - Hyperlipidemia, unspecified Plan: Reviewed recent fasting lipid profile with patient with levels within normal limits . Continue with atorvastatin 20 mg daily , in addition to adherence to low-cholesterol diet and regular exercise, at least 30 minutes 3 to 4 times a week. Advised patient to make healthy food choices, eat more fruits, vegetables, whole grains, wild caught fish and low-fat dairy. Limit amount of meat and fried or fatty food products, as well as processed foods and fast foods. Follow-up scheduled with repeat fasting lipid panel in 4 months. (10) Acquired hypothyroidism: Code(s): E03.9 - Hypothyroidism, unspecified Plan: Thyroid levels are within normal limits. Continue current dose of levothyroxine 137 mcg daily in a.m. Orders: Orders CT lung screening 05/29/23 F17.210 - Nicotine dependence, cigarettes, uncomplic ated Swetha Wasserman PA-C Pneumococcal 20 Immunization 05/29/23 Z23 - Encounter for immunization Kelsey Keith MD Referrals Thoracic Surgery Referral R91.1 - Solitary pulmonary nodule Kelsey Keith MD Cardiology Referral I10 - Essential (primary) hypertension, R07.89 - Other chest pain Kelsey Keith MD Coding Level of Care Code Est Pt Prev Care 40-64y(62286) Diagnoses Annual visit for general adult medical examination with abnormal findings Z00.01 Essential hypertension I10 Intermittent left-sided chest pain R07.89 Pulmonary nodule R91.1 Not ready to quit smoking Z72.0 Insomnia G47.00 Multinodular thyroid E04.2 Mild intermittent asthma J45.20 Asthma complication type: uncomplicated Dyslipidemia E78.5 Acquired hypothyroidism E03.9 Additional Codes ALESSIO-7 Assessment Billing - ALESSIO-7 Assessment Tool: ALESSIO-7 Assessment 37997 ([id number])
== END 2023-05-29 14:31 | disposition home or self-care (01) ==
PROVIDERS: Visit Provider Internal Medicine
DX: Z00.01 Encounter for general adult medical examination with abnormal findings (principal); I10 Essential (primary) hypertension; E04.2 Nontoxic multinodular goiter; J45.20 Mild intermittent asthma, uncomplicated; E03.9 Hypothyroidism, unspecified; R07.89 Other chest pain; R91.1 Solitary pulmonary nodule; Z72.0 Tobacco use; G47.00 Insomnia, unspecified; E78.5 Hyperlipidemia, unspecified
CPT/HCPCS: 90471; 90677; 99396

== ENCOUNTER 2023-07-18 14:54 | Outpatient (REF) | payer BC, SELFPAY ==
--- NOTE | ~2023-07-18 | CT_ITS ---
EXAMINATION: CT SCAN OF THE TEMPORAL BONES CLINICAL INFORMATION: Cholesteatoma COMPARISON: CT sinus 07/30/2020 TECHNIQUE: Multidetector helical imaging was performed in the axial plane with generation of oblique axial and coronal reformatted projections. This CT examination was performed using dose optimization techniques as appropriate, variously including the following: *Automated exposure control *Adjustment of mA and/or kV according to patient size (this includes techniques or standardized protocols for targeted exams where dose is matched to indication/reason for exam; i.e. extremities or head) *Use of iterative reconstruction technique DLP: 299 mGy-cm. FINDINGS: -- Left Temporal Bone -- Large mastoid effusion with scattered air-fluid levels but no coalescent changes. The left nasopharynx is widely patent. Patchy opacification/debris of the mastoid antrum, aditus ad antrum, and minimally within the epitympanum presumably post inflammatory/granulation tissue. The round and oval windows are opacified and there is partial opacification of the sinus tympani. No masslike soft tissue or osseous erosive change is evident. The ossicles are intact. The periauricular soft tissues are unremarkable. The external auditory canal is clear. The tympanic membrane is intact without thickening. The scutum is normal. There is normal mineralization of the otic capsule. The tegmen tympani and tegmen mastoideum are intact. The cochlea, vestibule, and semicircular canals are normal. The vestibular aqueduct is normal. The bony internal auditory canal is normal. The facial nerve course is normal. -- Right Temporal Bone -- The periauricular soft tissues are unremarkable. The external auditory canal is clear. The tympanic membrane is intact without thickening. The scutum is normal. The middle ear cavity is clear. The ossicles are normal without erosive change. The round and oval windows are normal. There is normal mineralization of the otic capsule. The tegmen tympani and tegmen mastoideum are intact. The mastoid air cells are clear. The cochlea, vestibule, and semicircular canals are normal. The vestibular aqueduct is normal. The bony internal auditory canal is normal. The facial nerve course is normal. -- Other Findings -- The bilateral carotid canals and jugular foramina are normal. Increased partially imaged moderate paranasal sinus mucosal disease ethmoid air cells and sphenoid sinuses and mild right maxillary sinus mucosal disease with retention cyst. The orbits are unremarkable. The visualized intracranial structures are normal. CT/CT internal auditory canals BI IMPRESSION: 1. Large left mastoid effusion with scattered air-fluid levels and patchy opacification/debris throughout the middle ear cavity. No coalescent changes. No masslike soft tissue or osseous erosive change to suggest cholesteatoma however if there is clinical concern further evaluation with non-EPI DWI may be performed. No obstructing lesion in the left nasopharynx is identified. 2. Increased partially imaged moderate ethmoid air cell and sphenoid sinus mucosal disease and mild right maxillary sinus mucosal disease with retention cyst.
== END 2023-07-18 14:55 | disposition home or self-care (01) ==
LOC: HO.CT 14:54
PROVIDERS: PCP Internal Medicine; Visit Provider Otolaryngology
DX: H71.92 Unspecified cholesteatoma, left ear (principal)
CPT/HCPCS: 70480

== ENCOUNTER 2023-07-25 14:33 | Outpatient (REF) | payer BC, SELFPAY | END 2023-07-25 14:34 | disposition home or self-care (01) | LOC: HO.MAMMO 14:33 | PROVIDERS: PCP Internal Medicine; Visit Provider Internal Medicine | DX: Z12.31 Encounter for screening mammogram for malignant neoplasm of breast (principal) | CPT/HCPCS: 77063; 77067 ==

== ENCOUNTER → 2023-07-25 14:45 | Outpatient (BNV) | payer BC, SELFPAY | PROVIDERS: PCP Internal Medicine; Visit Provider Radiology Diagnostic Radiology | DX: Z12.31 Encounter for screening mammogram for malignant neoplasm of breast (principal) | CPT/HCPCS: 77063; 77067 ==

== ENCOUNTER 2023-09-27 14:16 | Outpatient (AMB) | payer BC, SELFPAY ==
[2023-09-27 14:25] VITALS: BP 134/86; PULSE 84; BMI 39.5
--- NOTE | 2023-09-27 14:25 | A.OFFVIS_ITS ---
Intake Vital Signs 09/27/23 14:25 Height 5 ft 6 in Weight 244 lb 11.41 oz BMI 39.5 BP 134/86 Blood Pressure Location Lt brachial Position Sitting Pulse 84 Intake Visit Reasons: NPV/HTN/Chest pain/A. Espinas Intake Note: NPV w/ EKG Cardiology Associate Required: No Accompanied by: Self / Same As Patient Allergies hayfever Allergy (Uncoded 09/27/23 14:29) Rash Medication List - Last Reconciled 09/27/23 by Zaid Jordan MD albuterol sulfate 90 mcg/actuation (ProAir HFA) 1 inh inhalation QID PRN atorvastatin 20 mg PO .qod eszopiclone (Lunesta) 3 mg PO BEDTIME PRN fluticasone propion-salmeterol 100-50 mcg/dose 1 ea inhalation BID ibuprofen 800 mg PO Q12H PRN levothyroxine 137 mcg PO QAM metoprolol succinate ER 50 mg PO DAILY HPI HPI Comments History of Present Illness Details Rosamaria is here for consultation regarding chest pains. She states that she gets frequent chest pains but somewhat in random fashion. Nothing clearly precipitates it. Can happen with rest or activity. Feels like some pressure type sensation. She also gets short of breath with activity but her activity is also limited because of knee pains. No documented coronary disease myocardial infarction in the past. She has seen Dr. Benson about 10 years ago. At that time, thought to have hypertensive heart disease causing chest pain. Patient has been long-term smoker and still smokes. FORMERLY [facility] Medical History (Updated 09/27/23 @ 14:42 by Zaid Jordan MD) Intermittent left-sided chest pain Pulmonary nodule Bilateral lower extremity edema Not ready to quit smoking Insomnia Obesity Personal history of nicotine dependence Multinodular thyroid Abnormal nerve conduction studies Peroneal neuropathy Migraine Mild intermittent asthma Dyslipidemia Chronic left mastoiditis Allergic rhinitis Deviated nasal septum Essential hypertension Acquired hypothyroidism Surgical History (Updated 09/27/23 @ 14:30 by Fern Ferro) Hx of foot surgery History of section History of tonsillectomy History of carpal tunnel surgery of right wrist History of esophagogastroduodenoscopy (EGD) (~2017) History of thoracic surgery (~2006) Family History Father Heart disease Emphysema, unspecified Mother HTN (hypertension) Hyperlipidemia Paternal Aunt Breast cancer Paternal Uncle Cancer of prostate Brother No problems noted. Brother No problems noted. Daughter No problems noted. Social History Housing: House Alcohol intake: current Patient Tobacco Use Status: Current everyday Tobacco user Tobacco use type: Cigarette Cigarette Packs Per Day: 1 Years Smoked: 42 (onset 14yo, 1ppd x 42yrs, 40pyh) e-Cigarette/Vaping Use: Never Used Second Hand Smoke Exposure: No Current occupational status: employed Current occupation: assisting [employer] Current occupational exposures/hazards: No Cognitive needs: No Hearing needs: No Vision needs: No Review of Systems Const Denies chills, Denies daytime sleepiness, Denies fatigue, Denies fever(s), Denies frequent falls, Denies night sweats, Denies snoring, Denies weakness, Denies weight gain and Denies weight loss Eyes Denies loss of vision ENT Denies hearing loss Card Denies chest pain with activity, Denies syncope, Denies edema, Denies claudication, Denies lightheadedness, Denies dyspnea on exertion and Denies orthopnea Resp Denies cough, Denies excessive phlegm production, Denies dyspnea on exertion, Denies snoring and Denies wheezing GI Denies abdominal pain, Denies hematochezia, Denies change in bowel habits, Denies change in stool character, Denies heartburn, Denies nausea and Denies vomiting Denies hematuria, Denies urinary frequency and Denies dysuria Musc Denies arthralgias, Denies muscle weakness, Denies numbness and Denies tingling Skin/Breast Denies nail changes and Denies rash Neuro Denies Abnormal speech present, Denies syncope, Denies frequent falls, Denies loss of vision, Denies memory loss, Denies numbness, Denies tingling and Denies weakness Psych Denies depression and Denies memory loss Endo Denies fatigue Aller/Immun Denies wheezing Physical Exam Vital Signs: Last Vital Signs Pulse 84 09/27/23 14:25 BP 134/86 09/27/23 14:25 BMI result Body Mass Index 39.5 Const General: comfortable and no acute distress Orientation/consciousness: patient oriented x3 HEENT Other: Unremarkable Head: Yes normal to inspection Neck Neck: Yes normal visual inspection Chest Chest palpation & inspection: normal inspection of the chest Resp Auscultation: clear to auscultation bilaterally Cardio Palpation: normal PMI Heart sounds: S1 normal heart sound present, S2 normal heart sound present, no gallops, Murmur heart sound present systolic I/ and at the right sternal border and no rubs GI Palpation (GI): Soft to palpation Back/Spine/Pelvis Other: unremarkable Skin General skin exam: no rashes or lesions noted Neuro General: patient oriented x3 Speech: No Abnormal speech present Extrem General: Yes normal to inspection Psych Mental Status: mental status grossly normal Office Procedures EKG Details: EKG with sinus rhythm at 84/Min; cannot exclude old septal infarct but could also be from body habitus/lead placement. Similar to a prior EKG from last year. Also noted in the stress test racing from 10 years ago. Hence chronic. [id number], Complete Assessment & Plan Assessment & Plan (1) Precordial chest pain: Code(s): R07.2 - Precordial pain (2) SOB (shortness of breath): Code(s): R06.02 - Shortness of breath (3) Smoker: Code(s): F17.200 - Nicotine dependence, unspecified, uncomplicated (4) Essential hypertension: Code(s): I10 - Essential (primary) hypertension Plan Chest pain/shortness of breath with chronic smoking, hypertension. She needs further workup for cardiomyopathy as well as ischemic heart disease. We will start with an echocardiogram and stress test. She is not going to be able to exercise on the treadmill due to knee pain. Can do pharmacological stress with Lexiscan. Follow-up after the above. We also discussed about smoking cessation. Orders: Orders CA lexiscan stress w kaela Today I20.9 - Angina pectoris, unspecified, R07.2 - Precordial pain NM cardiolite stress test Today R07.2 - Precordial pain CA echo transthoracic complete Today I25.10 - Atherosclerotic heart disease of [place] coronary artery without angina pectoris, R07.2 - Precordial pain Medications: Changed From atorvastatin 20 mg PO DAILY 90 tabs 3RF To atorvastatin 20 mg PO .qod Coding Level of Care Code New Pt Level 4 (40187) Diagnoses Precordial chest pain R07.2 SOB (shortness of breath) R06.02 Smoker F17.200 Essential hypertension I10 CPT Codes EKG - CPT: 53330-[id number], Complete ([id number])
== END 2023-09-27 14:51 | disposition home or self-care (01) ==
PROVIDERS: PCP Internal Medicine; Visit Provider Internal Medicine
DX: R07.2 Precordial pain (principal); R06.02 Shortness of breath; F17.200 Nicotine dependence, unspecified, uncomplicated; I10 Essential (primary) hypertension
CPT/HCPCS: 93010; 99204

== ENCOUNTER → 2023-09-27 14:16 | Outpatient (BNVA) | payer BC, SELFPAY | PROVIDERS: PCP Internal Medicine; Visit Provider Internal Medicine | DX: R07.2 Precordial pain (principal); R06.02 Shortness of breath; I10 Essential (primary) hypertension; F17.200 Nicotine dependence, unspecified, uncomplicated; Z71.6 Tobacco abuse counseling | CPT/HCPCS: 93005 ==

== ENCOUNTER → 2023-10-30 07:48 | Outpatient (REF) | payer BC, SELFPAY ==
--- NOTE | 2023-10-30 07:53 | CA_ITS ---
Acquisition Time: 2023-10-30 09:21:18 Total Exercise Time: 00:02:00 Test Indications: CP Medications: SEE H Protocol: LEXISCAN Max HR: 133 BPM 81% of Pred: 163 BPM Max BP: 170/078 mmHG Max Work Load: 1.0 METS Pharmacological stress test with :Lexiscan injection while sitting and slowly kicking her legs, without anginal symptoms, without arrhythmnias, with normotensive response to injection, with nondiagnoisitic EKGs. Nuclear images pending. Test reviewed with Dr. Sheffield. Referred By: Zaid Jordan Overread By: Teresa Shah
--- NOTE | 2023-10-30 07:53 | CA_ITS ---
Transthoracic Echocardiogram Patient (Last, First, Middle): Rosamaria Austin A Gender: Female Date of : 1965 Age: 58 Procedure Date: 10/30/2023 Procedure Type: Transthoracic Echocardiogram Location: OP Height: 167.64 cm Weight: 104.33 kg BSA: 2.12 m2 Heart Rate: bpm BP: 124 / 82 mmHg Loan Supervisor: TO Referring MD: Zaid Jordan MD Symptoms: I25.10 - Atherosclerotic heart disease of [place] coronary artery without... Study Quality: Fair/Contrast ECG Rhythm: Sinus Conclusions: - The left ventricular systolic function is normal. The visually estimated ejection fraction is between 65-70%. - No obvious valvular pathology seen on this study. Findings Procedure Information Contrast agent, definity, is being given per protocol without apparent complications. Left Ventricle Normal left ventricular cavity size. There is mildly increased left ventricular wall thickness. The left ventricular systolic function is normal. The visually estimated ejection fraction is between 65-70%. There is no evidence of regional wall motion abnormalities. Diastolic function is normal for age. Right Ventricle Normal right ventricular cavity size and systolic function. Atria Both atria are normal in size. Aortic Valve There is a normal trileaflet aortic valve. There is no aortic valve stenosis. There is no aortic valve regurgitation. Mitral Valve The mitral valve appears normal. There is no mitral valve regurgitation. There is no mitral valve stenosis. Pulmonic Valve The pulmonic valve is likely normal. Tricuspid Valve Normal tricuspid valve structure. There is trace tricuspid valve regurgitation. There is no evidence of pulmonary hypertension. Great Vessels The asc aorta is normal in size. Venous The inferior vena cava is normal in size and collapses greater than 50% with inspiration. Pericardium/Pleural There is no evidence of pericardial effusion. Prior Study Comparison No significant change compared to prior study dated: 07/26/2005. Recommendations, Care & Conclusions No obvious valvular pathology seen on this study. Measurements 2D Linear Measurements IVSd: 1.32 0.6-0.9/0.6-1.0 cm LVIDd: 4.24 3.9-5.3/4.2-5.9 cm LVIDd Index: 2.00 2.4-3.2/2.2-3.1 cm/m2 LVIDs: 2.88 2.0-3.6 cm LVPWd: 1.15 0.7-1.1 cm LA Diam: 3.70 2.7-3.8/3.0-4.0 cm LAIDs Index: 1.75 1.5-2.3 cm/m2 LV Mass: 234.92 67-162/88-224 g LV Mass Index: 110.81 43-95/49-115 g/m2 LVOT Diam: 2.00 3.0+(-)1.3 cm 2D Systolic Function EF 4C: 64.60 >55% Mitral Valve MV Pk E: 0.56 MV PK A: 0.79 MV Decel Time: 156.00 E/A: 0.70 E'Lateral: 6.96 E'Medial: 6.20 E/E' Med: 9.00 E/E' Lat: 8.00 PHT: 46.00 MVA PHT: 4.78 Decel Harvey: 3.58 Aortic Valve AoV Pk Bertrand: 1.41 AoV Mn Bertrand: 0.97 AoV VTI: 0.28 AoV Pk Grad: 8.00 Aov Mn Grad: 4.00 MOOK Cont.VTI: 2.57 LVOT LVOT Pk Bertrand: 1.08 LVOT Mn Bertrand: 0.77 LVOT VTI: 0.23 LVOT Pk Grad: 5.00 LVOT Mn Grad: 3.00 LVOT Diam: 2.00 LVOT Area: 3.14 Diastolic Function MV Pk E: 0.56 MV Pk A: 0.79 E/A: 0.70 E'Medial: 6.20 E/E' Med: 9.00 E' Laterial: 6.96 E/E' Lat: 8.00 Right Ventricle TAPSE (mm): 23.50 TVS' Bertrand: 11.50 Tricuspid Valve RA Press: 3.00 Great Vessels Aorta Sinus of Valsalva: 2.88 2.0-3.5 cm Ao Asc: 3.30 2.1-3.4 cm Updated in Other Vendor System with Status of Final Zaid Jordan MD electronically signed on 10/30/2023 11:50:20 AM with status of Final
== END ==
LOC: HO.CARD 07:48
PROVIDERS: PCP Internal Medicine; Visit Provider Internal Medicine
DX: R07.2 Precordial pain (principal); I25.119 Atherosclerotic heart disease of native coronary artery with unspecified angina pectoris
CPT/HCPCS: 78452; 93017; 93306; A9500; J0280; J2785; Q9957

== ENCOUNTER → 2023-10-30 07:53 | Outpatient (BNV) | payer BC, SELFPAY | PROVIDERS: PCP Internal Medicine; Visit Provider Internal Medicine | DX: I25.10 Atherosclerotic heart disease of native coronary artery without angina pectoris (principal) | CPT/HCPCS: 78452; 93016; 93018; 93306 ==

== ENCOUNTER 2023-11-07 06:01 | Outpatient (REF) | payer BC, SELFPAY ==
[2023-11-07 12:18] LABS: Alanine Aminotransferase 16 U/L (0-31); Anion Gap 12 (12-20); Aspartate Amino Transferase 12 U/L (5-31); Blood Urea Nitrogen 18 mg/dL (9-16); Calcium 9.6 mg/dL (8.4-10.2); Carbon Dioxide 25 mmol/L (22-29); Chloride 108 mmol/L (96-108); Cholesterol 198 mg/dL (<200); Estimated Glomerular Filt Rate > 60; Glucose Fasting 86 mg/dL (60-99); HDL Cholesterol 55 mg/dL (>40); LDL Cholesterol Calculated 117 mg/dL (<100); Potassium 4.3 mmol/L (3.3-5.1); Sodium 141 mmol/L (135-145); Triglycerides 133 mg/dL (<150)
[2023-11-07 12:22] LABS: Free T4 (Free Thyroxine) 0.97 ng/dL (0.71-1.85); Thyroid Stimulating Hormone 1.07 uIU/mL (0.32-4.0)
== END 2023-11-07 06:02 | disposition home or self-care (01) ==
LOC: HO.HMGCLDS 06:01
PROVIDERS: PCP Internal Medicine; Visit Provider Internal Medicine
DX: R07.2 Precordial pain (principal); R06.02 Shortness of breath; R00.2 Palpitations; E03.9 Hypothyroidism, unspecified; I10 Essential (primary) hypertension; E78.5 Hyperlipidemia, unspecified; E04.2 Nontoxic multinodular goiter; Z78.0 Asymptomatic menopausal state
CPT/HCPCS: 36415; 80048; 80061; 84439; 84443; 84450; 84460

== ENCOUNTER 2023-11-07 13:40 | Outpatient (AMB) | payer BC, SELFPAY ==
[2023-11-07 13:57] VITALS: BP 120/78; PULSE 96; BMI 39.1
--- NOTE | 2023-11-07 13:57 | MHC.OFFVIS ---
Intake Vital Signs 11/07/23 13:57 Height 5 ft 6 in Weight 242 lb 8.136 oz BMI 39.1 BP 120/78 Blood Pressure Location Lt brachial Position Sitting Pulse 96 Intake Visit Reasons: 6 wk fu stress/echo Intake Note: 6 week follow-up stress and echo c/o heart racing at night Outside Deliverer Required: No Allergies hayfever Allergy (Uncoded 11/07/23 14:16) Rash Medication List - Last Reconciled 11/07/23 by Teresa Shah NP albuterol sulfate 90 mcg/actuation (ProAir HFA) 1 inh inhalation QID PRN atorvastatin 20 mg PO .qod eszopiclone (Lunesta) 3 mg PO BEDTIME PRN fluticasone propion-salmeterol 100-50 mcg/dose 1 ea inhalation BID ibuprofen 800 mg PO Q12H PRN levothyroxine 137 mcg PO QAM metoprolol succinate ER 50 mg PO DAILY HPI HPI Comments History of Present Illness Details 58-year-old female presents for a follow-up after testing. Reports she still feels some chest discomfort and shortness of breath. Testing came back with normal perfusion and normal ejection fraction with no valvular pathology. She states she still smokes and limits herself to one cup of coffee a day. FORMERLY [facility] Medical History Intermittent left-sided chest pain Pulmonary nodule Bilateral lower extremity edema Not ready to quit smoking Insomnia Obesity Personal history of nicotine dependence Multinodular thyroid Abnormal nerve conduction studies Peroneal neuropathy Migraine Mild intermittent asthma Dyslipidemia Chronic left mastoiditis Allergic rhinitis Deviated nasal septum Essential hypertension Acquired hypothyroidism Surgical History Hx of foot surgery History of section History of tonsillectomy History of carpal tunnel surgery of right wrist History of esophagogastroduodenoscopy (EGD) (~2018) History of thoracic surgery (~2007) Family History Father Heart disease Emphysema, unspecified Mother HTN (hypertension) Hyperlipidemia Paternal Aunt Breast cancer Paternal Uncle Cancer of prostate Brother No problems noted. Brother No problems noted. Daughter No problems noted. Social History Housing: House Alcohol intake: current Patient Tobacco Use Status: Current everyday Tobacco user Tobacco use type: Cigarette Cigarette Packs Per Day: 1 Years Smoked: 42 (onset 14yo, 1ppd x 43yrs, 40pyh) e-Cigarette/Vaping Use: Never Used Second Hand Smoke Exposure: No Current occupational status: employed Current occupation: assisting cook Current occupational exposures/hazards: No Cognitive needs: No Hearing needs: No Vision needs: No Review of Systems Const Denies chills, Denies fatigue, Denies fever(s), Denies frequent falls, Denies weakness, Denies weight gain and Denies weight loss ENT Denies dizziness Card Denies chest pain, Denies leg edema, Denies lightheadedness, Denies palpitations, Denies dyspnea, Denies dyspnea on exertion, Denies orthopnea and Denies other (loss of consciousness) Resp Denies cough, Denies dyspnea and Denies dyspnea on exertion GI Denies hematochezia and Denies change in stool character Musc Denies abnormal gait, Denies muscle weakness, Denies numbness, Denies radiating pain into limb and Denies tingling Neuro Denies abnormal gait, Denies dizziness, Denies frequent falls, Denies numbness, Denies tingling and Denies weakness Endo Denies fatigue and Denies palpitations Physical Exam Vital Signs: Last Vital Signs Pulse 96 11/07/23 13:57 BP 120/78 11/07/23 13:57 BMI result Body Mass Index 39.1 Const General: healthy appearing and no acute distress Orientation/consciousness: patient oriented x3 HEENT Head: Yes normal to inspection Eyes General: appearance normal, both eyes and all related structures Neck Neck: Yes normal visual inspection Chest Chest palpation & inspection: normal inspection of the chest Resp Effort & Inspection: normal respiratory effort Auscultation: clear to auscultation bilaterally Cardio Jugular venous distension: no JVD Palpation: normal PMI Rate: regular rate Rhythm: regular rhythm Heart sounds: S1 normal heart sound present, S2 normal heart sound present, no click, no gallops, no murmurs and no rubs GI Inspection: Yes normal to inspection Palpation (GI): Soft to palpation Skin General skin exam: no rashes or lesions noted Neuro General: patient oriented x3 Extrem General: Yes normal to inspection Psych Appearance: grossly normal Assessment & Plan Assessment & Plan (1) Precordial chest pain: Code(s): R07.2 - Precordial pain (2) SOB (shortness of breath): Code(s): R06.02 - Shortness of breath (3) Palpitations: Code(s): R00.2 - Palpitations Plan Offered heart monitor. She states since test showed normal blood flow she does not want to persue heart monitor. We discussed heart healthy diet, exercise, stress mitigation techniques, and smoking cessation. Instructed if she changes her mind or wants to come back sooner for any reason to call. Coding Level of Care Code Est Pt Level 3 (78495) Diagnoses Precordial chest pain R07.2 SOB (shortness of breath) R06.02 Palpitations R00.2
== END 2023-11-07 14:44 | disposition home or self-care (01) ==
PROVIDERS: PCP Internal Medicine; Visit Provider Nurse Practitioner
DX: R07.2 Precordial pain (principal); R06.02 Shortness of breath; R00.2 Palpitations
CPT/HCPCS: 99213

== ENCOUNTER 2023-11-08 13:43 | Outpatient (AMB) | payer BC, SELFPAY ==
--- NOTE | 2023-11-08 14:22 | A.OFFPC_ITS ---
Vital Signs 11/08/23 14:23 Height 5 ft 6 in Weight 245 lb 6 oz BMI 39.6 BP 134/86 Blood Pressure Location Rt brachial Position Sitting Pulse 75 Pulse Source Pulse Oximeter Pulse Oximetry (%) 98 Oxygen Delivery Method Room Air Intake Visit Reasons: 4 month follow up thyroid, Asthma, Lipids and HTN Intake Note: Pt is here to follow up for her lab results Allergies hayfever Allergy (Uncoded 11/08/23 14:37) Rash Medication List - Last Reconciled 11/08/23 by Kelsey Keith MD albuterol sulfate 90 mcg/actuation (ProAir HFA) 1 inh inhalation QID PRN atorvastatin 20 mg PO .qod eszopiclone (Lunesta) 3 mg PO BEDTIME PRN fluticasone propion-salmeterol 100-50 mcg/dose 1 ea inhalation BID ibuprofen 800 mg PO Q12H PRN levothyroxine 137 mcg PO QAM metoprolol succinate ER 50 mg PO DAILY Tobacco use date assessed: 11/08/23 Dental Screening Dental Screen Date: 11/08/23 Did you have a dental visit in the last 12 months?: Yes Did you have a dental problem in the last 6 months where you did not have access to dental care?: No Was dental information given to patient?: Patient has dentist HPI 4 month follow up thyroid, Asthma, Lipids and HTN HPI Details 58-year-old lady with Hypertension, acqu ired hypothyroidism, mild intermittent asthma and Hyperlipidemia, here roday for her follow up visit . She has bee compliant with taking her medications, recommended diet, but admits to not getting any regular exercise. Has been referred to cardiology is of complains of intermittent episodes of chest discomfort, shortness of breath, had echocardiogram and stress test done which came back showing normal perfusion and normal ejection fraction , with no valvular pathology. Holter monitor recommended but patient declined. Recent fasting labs done showed normal electrolytes, renal function, fasting glucose, lipids liver enzymes and thyroid levels. She continues to smoke cigarettes, with no desire to quit present time. Has been feeling well except for recurrent pain across her lower back, temperature relieved by taking ibuprofen. Denies any accompanying numbness, no weakness in extremities, no urinary or stool incontinence., [facility] Medical History Intermittent left-sided chest pain Pulmonary nodule Bilateral lower extremity edema Not ready to quit smoking Insomnia Obesity Personal history of nicotine dependence Multinodular thyroid Abnormal nerve conduction studies Peroneal neuropathy Migraine Mild intermittent asthma Dyslipidemia Chronic left mastoiditis Allergic rhinitis Deviated nasal septum Essential hypertension Acquired hypothyroidism Surgical History Hx of foot surgery History of section History of tonsillectomy History of carpal tunnel surgery of right wrist History of esophagogastroduodenoscopy (EGD) (~2018) History of thoracic surgery (~2007) Family History Father Heart disease Emphysema, unspecified Mother HTN (hypertension) Hyperlipidemia Paternal Aunt Breast cancer Paternal Uncle Cancer of prostate Brother No problems noted. Brother No problems noted. Daughter No problems noted. Social History Housing: House Alcohol intake: current Patient Tobacco Use Status: Current everyday Tobacco user Tobacco use type: Cigarette Cigarette Packs Per Day: 1 Years Smoked: 42 (onset 14yo, 1ppd x 42yrs, 40pyh) e-Cigarette/Vaping Use: Never Used Second Hand Smoke Exposure: No Current occupational status: employed Current occupation: assisting cook Current occupational exposures/hazards: No Cognitive needs: No Hearing needs: No Vision needs: No Questionnaire PHQ-9 Over the last 2 weeks, how often have you been bothered by any of the following problems? 1. Little interest or pleasure in doing things: not at all 2. Feeling down, depressed, or hopeless: not at all 3. Trouble falling or staying asleep, or sleeping too much: several days 4. Feeling tired or having little energy: not at all 5. Poor appetite or overeating: not at all 6. Feeling bad about yourself - or that you are a failure or have let yourself or your family down: not at all 7. Trouble concentrating on things, such as reading the newspaper or watching television: not at all 8. Moving or speaking so slowly that other people could have noticed. Or the opposite - being so fidgety or restless that you have been moving around a lot more than usual: not at all 9. Thoughts that you would be better off or of hurting yourself in some way: not at all Total score: 1 Depression Screening Interpretation: Negative Depression Screening Done: Yes 59600 - PHQ-9 Billing: Yes Source: Developed by Drs. Flynn Gotti, Samantha Jolley, Sebastián Childress and colleagues, with an educational collette from [employer]. Thrive Questionnaire Date Thrive assessed: 11/08/23 I am a: Patient What is your living situation today?: I have a steady place to live Within the past 12 months, did the food you bought not last and you didn't have the money to get more?: Never true Within the past 12 months, did you worry whether your food would run out before you got money to buy more?: Never true Do you have trouble paying for medicines?: No Do you have trouble getting transportation to medical appointments?: No Do you have trouble paying your heating and electricity bill?: No Do you have trouble taking care of your child, family member or friend?: No Do you have trouble with day-to-day activities such as bathing, preparing meals, shopping, managing finances, etc.?: No Are you currently unemployed and looking for a job?: No Are you interested in more education?: No AUDIT C Alcohol Use Questionnaire (AUDIT-C) 1. How often do you have a drink containing alcohol?: 2-4 times a month 2. How many drinks containing alcohol do you have on a typical day when you are drinking?: 3 or 4 3. How often do you have six or more drinks on one occasion?: Less than monthly Total Score: 4 ALESSIO-7 AMB Questionnaire ALESSIO-7 Date ALESSIO - 7 assessed: 11/08/23 Feeling nervous, anxious, or on edge: 0 = Not at all Not being able to stop or control worryin = Several days Worrying too much about different things: 1 = Several days Trouble relaxin = Several days Being so restless that it is hard to sit still: 0 = Not at all Becoming easily annoyed or irritable: 0 = Not at all Feeling afraid as if something awful might happen: 0 = Not at all Total ALESSIO-7 score (0-4 normal; 5-9 mild; 10-14 moderate; 15-21 severe): 3 Source: Developed by Drs. Flynn Gotti, Samantha Jolley, Sebastián Childress and colleagues, with an educational collette from [employer]. ALESSIO-7 Assessment Billing ALESSIO-7 Assessment Tool: ALESSIO-7 Assessment 06298 ACT Questionnaire In the past 4 weeks, how much of the time did your asthma keep you from getting as much done at work, school or at home?: A little of the time During the past 4 weeks, how often have you had shortness of breath?: 1-2 times a week During the past 4 weeks, how often did your asthma symptoms wake you up at night or earlier than usual in the morning?: Once or twice per week During the past 4 weeks, how often have you had to use your rescue inhaler or nebulizer medication?: Once a week or less How would you rate your asthma control during the past 4 weeks?: Well controlled ACT Interpretation: Negative Score: 20 Review of Systems Const Denies chills, Denies fatigue, Denies fever(s) and Denies frequent falls ENT Denies dizziness Card Denies chest pain, Denies leg edema, Denies lightheadedness, Denies palpitations, Denies dyspnea on exertion and Denies orthopnea Resp Denies cough and Denies dyspnea on exertion GI Denies hematochezia and Denies change in stool character Reports no additional complaints Musc Denies abnormal gait, Denies muscle weakness and Denies radiating pain into limb Skin/Breast Denies lesions and Denies rash Neuro Denies abnormal gait, Denies dizziness and Denies frequent falls Psych Reports no additional complaints Endo Denies fatigue and Denies palpitations Earl/Lymph Reports no additional complaints Aller/Immun Reports no additional complaints Physical exam (Primary Care) Vital Signs: Last Vital Signs Pulse 75 11/08/23 14:23 BP 134/86 11/08/23 14:23 Pulse Ox 98 11/08/23 14:23 Oxygen Delivery Method Room Air 11/08/23 14:23 BMI result Body Mass Index 39.6 BMI Assessment/Plan discussion: High BMI High, discussed plan: lifestyle, weight reduction, dietary and physical activity Tobacco/Smoking Status: Tobacco use Status Tobacco use date assessed 11/08/23 11/08/23 14:28 Patient Tobacco Use Status Current everyday Tobacco 11/08/23 14:28 Tobacco use type Cigarette 11/08/23 14:28 e-Cigarette/Vaping Use Never Used 11/08/23 14:28 Are you ready to quit: No Tobacco cessation counseling provided: Yes PHQ-9: PHQ-9 Score PHQ-9: Total score 1 11/16/23 01:37 Depression Screening Interpretation: Negative Thrive Assessment: Date of Thrive Assessment Date Thrive assessed 11/08/23 11/08/23 17:12 Const General: comfortable and no acute distress Orientation/consciousness: patient oriented x3 [facility] General nose exam: Normal external nose present and No nasal discharge present Mouth: Normal oral and palatal mucosa present and moist mucous membranes Eyes General: appearance normal, both eyes and all related structures Conjunctivae: conjunctivae normal Sclerae: sclerae normal Pupils: Equal, round and reactive pupils present EOM: EOMs intact bilaterally Neck Neck: Yes full ROM, Yes no lymphadenopathy and Yes supple Resp Effort & Inspection: normal respiratory effort and able to speak in complete sentences Auscultation: clear to auscultation bilaterally Cardio Rate: regular rate Rhythm: regular rhythm Heart sounds: S1 normal heart sound present and S2 normal heart sound present GI Inspection: Yes normal to inspection Palpation (GI): Soft to palpation, nontender, no guarding and no masses General: Yes no CVA tenderness Back/Spine/Pelvis Back: no CVA tenderness and No back tenderness Skin General skin exam: no rashes or lesions noted Neuro General: patient oriented x3, gait normal, tone normal, Normal light touch and pain sensation and no focal motor deficits Cranial nerves: Yes Equal, round and reactive pupils present Extrem General: Yes full ROM, Yes no joint enlargement and Yes normal gait Psych Appearance: grossly normal and well kempt Mental Status: mental status grossly normal Speech and movement: Normal speech and movement present Affect: normal affect Thought process: Normal thought process present Results Reviewed Results Reviewed: Name: Rosamaria Austin Age/Sex: 58/F : 1965 Unit#: [id number] Attend Dr: Kelsey Keith MD Re11/07/23 Status: DEP REF Location: [facility] Disch: SPEC : [id number] SANTANA: 11/07/23 STATUS: COMP REQ : [id number] RECD: 11/07/23-[address]: Kelsey Keith MD COMP: 11/07/23-1222 ENTERED: 11/07/[address] [facility] DR: ORDERED: Met Prof Fast, AST, ALT, Lipid Panel, Free T4, TSH Test Result Flag Reference Site Sodium 141 135-145 mmol/L Potassium 4.3 3.3-5.1 mmol/L CL 108 96-108 mmol/L CO2 25 22-29 mmol/L Gap 12 12-20 BUN 18 H 9-16 mg/dL Creat 0.71 0.5-1.4 mg/dL EGFR > 60 NOTE: For -[place] individuals, multiply the result by 1.210. Chronic Kidney Disease: Estimated GFR < 60 mL/min/1.73m2 Severe Kidney Disease: Estimated GFR < 15 mL/min/1.73m2 FBS 86 60-99 mg/dL CA 9.6 8.4-10.2 mg/dL AST (GOT) 12 5-31 U/L ALT (GPT) 16 0-31 U/L Triglyceride 133 <150 mg/dL Desirable Triglyceride: less than 150 mg/dL Borderline High Triglyceride 150-199 mg/dL High Triglyceride: 200-499 mg/dL Very High Triglyceride: greater than or equal to 5OO mg/dL Cholesterol 198 <200 mg/dL Desirable Cholesterol: less than 200 mg/dL Borderline High Cholesterol: 200-239 mg/dL High Cholesterol: greater than 239 mg/dL LDL Calculated 117 H <100 mg/dL Desirable LDL: less than 100 mg/dL Near Optimal/Above Optimal LDL: 110-129 mg/dL Borderline High LDL: 130-159 mg/dL High LDL: 160-189 mg/dL Very High LDL: greater than or equal to 190 mg/dL HDL 55 >40 mg/dL Desirable HDL: greater than 40 mg/dL Note: This HDL assay may give artificially low results in patients with liver disease. Free T4 0.97 0.71-1.85 ng/dL TSH 3rd Gen. 1.07 0.32-4.0 uIU/mL TSH 3rd Generation ([facility]) Assessment and Plan Assessment & Plan (1) Dyslipidemia: Code(s): E78.5 - Hyperlipidemia, unspecified Plan: Reviewed recent fasting lipid profile with patient with levels at goal . Continue with atorvastatin 20 mg every other day , in addition to adherence to low-cholesterol diet and regular exercise, at least 30 minutes 3 to 4 times a week. Advised patient to make healthy food choices, eat more fruits, vegetables, whole grains, wild caught fish and low-fat dairy. Limit amount of meat and fried or fatty food products, as well as processed foods and fast foods. Follow-up scheduled with repeat fasting lipid panel in 6 months. (2) Mild intermittent asthma: Code(s): J45.20 - Mild intermittent asthma, uncomplicated Qualifiers: Asthma complication type: uncomplicated Qualified Code(s): J45.20 - Mild intermittent asthma, uncomplicated Plan: Asthma stable controlled on current treatment, has rescue inhaler with albuterol which she rarely needs to use and on Advair 100-50 mcg does 1 inhalation twice a day. Advised again patient to not forget rinsing mouth after use. (3) Essential hypertension: Code(s): I10 - Essential (primary) hypertension Plan: Blood pressure at goal of less than 130/80. Continue with current medication. Reinforced importance of following a low sodium diet, getting regular exercise, and lowering stress levels. (4) Acquired hypothyroidism: Code(s): E03.9 - Hypothyroidism, unspecified Plan: Thyroid levels within normal limits, continue with current dose of levothyroxine at 137 mcg daily in a.m. an hour before eating (5) Chronic low back pain: Code(s): M54.50 - Low back pain, unspecified; G89.29 - Other chronic pain Plan: Patient requesting referral for massage therapy which she has had in the past and has helped. Patient states that this she can have her insurance reimburse the cost. Orders: Orders Lipid Panel 6 Months Z78.0 - Asymptomatic menopausal state, I10 - Essential (primary) hypertension, E03.9 - Hypothyroidism, unspecified, E78.5 - Hyperlipidemia, unspecified Free T4 (Free Thyroxine) 6 Months Z78.0 - Asymptomatic menopausal state, I10 - Essential (primary) hypertension, E03.9 - Hypothyroidism, unspecified, E78.5 - Hyperlipidemia, unspecified Alanine Aminotransferase 6 Months Z78.0 - Asymptomatic menopausal state, I10 - Essential (primary) hypertension, E03.9 - Hypothyroidism, unspecified, E78.5 - Hyperlipidemia, unspecified Aspartate Amino Transferase 6 Months Z78.0 - Asymptomatic menopausal state, I10 - Essential (primary) hypertension, E03.9 - Hypothyroidism, unspecified, E78.5 - Hyperlipidemia, unspecified Thyroid Stimulating Hormone 6 Months Z78.0 - Asymptomatic menopausal state, I10 - Essential (primary) hypertension, E03.9 - Hypothyroidism, unspecified, E78.5 - Hyperlipidemia, unspecified Basic Metabolic Panel Fasting 6 Months Z78.0 - Asymptomatic menopausal state, I10 - Essential (primary) hypertension, E03.9 - Hypothyroidism, unspecified, E78.5 - Hyperlipidemia, unspecified Vitamin D 25-OH Total 6 Months Z78.0 - Asymptomatic menopausal state, I10 - Essential (primary) hypertension, E03.9 - Hypothyroidism, unspecified, E78.5 - Hyperlipidemia, unspecified Referrals Massage Therapy Referral M54.50 - Low back pain, unspecified, G89.29 - Other chronic pain Medications: New ciclopirox 8% 1 appl topical BEDTIME 6.6 mL 0RF 4 weeks Refilled levothyroxine 137 mcg PO QAM 90 tabs 2RF E03.9 - Hypothyroidism, unspecified metoprolol succinate ER 50 mg PO DAILY 90 tabs 3RF I10 - Essential (primary) hypertension Coding Level of Care Code Est Pt Level 4 (66091) Diagnoses Dyslipidemia E78.5 Mild intermittent asthma without complication J45.20 Asthma complication type: uncomplicated Essential hypertension I10 Acquired hypothyroidism E03.9 Chronic low back pain M54.50; G89.29 Additional Codes ALESSIO-7 Assessment Billing - ALESSIO-7 Assessment Tool: ALESSIO-7 Assessment 44972 ([id number])
[2023-11-08 14:23] VITALS: BP 134/86; PULSE 75; O2SAT 98; BMI 39.6
== END 2023-11-08 15:01 | disposition home or self-care (01) ==
PROVIDERS: PCP Internal Medicine; Visit Provider Internal Medicine
DX: E78.5 Hyperlipidemia, unspecified (principal); J45.20 Mild intermittent asthma, uncomplicated; I10 Essential (primary) hypertension; E03.9 Hypothyroidism, unspecified; M54.50 Low back pain, unspecified; G89.29 Other chronic pain
CPT/HCPCS: 99214

== ENCOUNTER 2024-01-09 08:53 | Outpatient (AMB) | payer BC, SELFPAY ==
--- NOTE | 2024-01-09 08:53 | MHC.OFFWIV ---
Intake Vital Signs 01/09/24 08:55 Height 5 ft 6 in Weight 246 lb BMI 39.7 BP 144/72 H Blood Pressure Location Rt brachial Position Sitting Pulse 95 Pulse Source Pulse Oximeter Temp 97.6 F Temp Source Oral Pulse Oximetry (%) 98 Oxygen Delivery Method Room Air Intake Visit Reasons: EP ?LT ear infection Intake Note: Pt is here c/o left ear discomfort for three days. Patient Tobacco Use Status: Current everyday Tobacco user Allergies hayfever Allergy (Uncoded 01/09/24 08:57) Rash Medication List - Last Reconciled 01/09/24 by AFSANEH Sood albuterol sulfate 90 mcg/actuation (ProAir HFA) 1 inh inhalation QID PRN amoxicillin 500 mg (2 x 250 mg) PO BID 10 days atorvastatin 20 mg PO .qod ciclopirox 8% 1 appl topical BEDTIME 4 weeks eszopiclone (Lunesta) 3 mg PO BEDTIME PRN fluticasone propion-salmeterol 100-50 mcg/dose 1 ea inhalation BID ibuprofen 800 mg PO Q12H PRN levothyroxine 137 mcg PO QAM metoprolol succinate ER 50 mg PO DAILY Do you need a note to return to daycare/school/sports/work: No HPI HPI Comments History of Present Illness Details 58-year-old female presents today complaining of moderate left ear pain for the last 3 days. States she has a past medical history of problems with her ears. [facility] Medical History Intermittent left-sided chest pain Pulmonary nodule Bilateral lower extremity edema Not ready to quit smoking Insomnia Obesity Personal history of nicotine dependence Multinodular thyroid Abnormal nerve conduction studies Peroneal neuropathy Migraine Mild intermittent asthma Dyslipidemia Chronic left mastoiditis Allergic rhinitis Deviated nasal septum Essential hypertension Acquired hypothyroidism Surgical History Hx of foot surgery History of section History of tonsillectomy History of carpal tunnel surgery of right wrist History of esophagogastroduodenoscopy (EGD) (~2017) History of thoracic surgery (~2006) Family History Father Heart disease Emphysema, unspecified Mother HTN (hypertension) Hyperlipidemia Paternal Aunt Breast cancer Paternal Uncle Cancer of prostate Brother No problems noted. Brother No problems noted. Daughter No problems noted. Social History Housing: House Alcohol intake: current Patient Tobacco Use Status: Current everyday Tobacco user Tobacco use type: Cigarette Cigarette Packs Per Day: 1 Years Smoked: 42 (onset 14yo, 1ppd x 42yrs, 40pyh) e-Cigarette/Vaping Use: Never Used Second Hand Smoke Exposure: No Current occupational status: employed Current occupation: assisting cook Current occupational exposures/hazards: No Cognitive needs: No Hearing needs: No Vision needs: No Review of Systems Eyes Reports no additional complaints ENT Reports nasal congestion, Reports nasal discharge, Reports post nasal drip and Reports sinus pressure Card Reports no additional complaints Resp Reports no additional complaints Physical Exam Vital Signs: Last Vital Signs Temp 97.6 F 01/09/24 08:55 Pulse 95 01/09/24 08:55 BP 144/72 H 01/09/24 08:55 Pulse Ox 98 01/09/24 08:55 Oxygen Delivery Method Room Air 01/09/24 08:55 BMI result Body Mass Index 39.7 Const General: healthy appearing HEENT Head: Yes normal to inspection, Yes normocephalic and Yes atraumatic Ears: hearing grossly normal bilaterally, TM normal on the right, EAC's normal and TM abnormal bulging and erythematous General nose exam: Normal external nose present Face and sinus: Yes sinus tenderness Throat: Yes postnasal drainage Resp Effort & Inspection: normal respiratory effort Auscultation: clear to auscultation bilaterally Cardio Rate: regular rate Rhythm: regular rhythm Assessment & Plan Assessment & Plan (1) Left ear pain: Code(s): H92.02 - Otalgia, left ear Plan: Patient will take antibiotics for the next 7 days. She is advised to use ibuprofen and or Tylenol for discomfort. Given a note for work for the next couple of days Plan See plan Medications: New amoxicillin 500 mg (2 x 250 mg) PO BID 10 days 40 caps 0RF Coding Level of Care Code Est Pt Level 3 (76734) Diagnoses Left ear pain H92.02
[2024-01-09 08:55] VITALS: BP 144/72; PULSE 95; TEMP 36.4; O2SAT 98; BMI 39.7
== END 2024-01-09 10:00 | disposition home or self-care (01) ==
PROVIDERS: PCP Internal Medicine; Visit Provider Physician Assistant Medical
DX: H92.02 Otalgia, left ear (principal)
CPT/HCPCS: 99213

== ENCOUNTER 2024-03-06 14:21 | Outpatient (REF) | payer BC, SELFPAY ==
--- NOTE | ~2024-03-06 | CT_ITS ---
EXAMINATION: CT LOW-DOSE SCREENING CHEST WITHOUT CONTRAST CLINICAL INFORMATION: Nicotine dependence, cigarettes, uncomplicated. The patient is a current smoker with a 43 pack-year history of smoking. COMPARISON: CT chest 06/10/2021 and CR chest 04/30/2012. TECHNIQUE: Multidetector volumetric CT imaging of the chest is performed on a Siemens SOMATOM Definition scanner without contrast using low dose technique. Additional 2D coronal and sagittal reformatted images and axial 3D maximum intensity projection (MIP) images are generated on the CT workstation. This CT examination was performed using dose optimization techniques as appropriate, variously including the following: *Automated exposure control. *Adjustment of mA and/or kV according to patient size (this includes techniques or standardized protocols for targeted exams where dose is matched to indication/reason for exam; i.e. extremities or head). *Use of iterative reconstruction technique. TOTAL EXAM DLP: 65 mGy-cm CTDIvol: 2.04 mGy FINDINGS: PULMONARY NODULES: Four pulmonary nodules are present and patel images of all have been saved. The largest is in the right lower lobe measuring 5 mm (5:249 compare prior 9:274), by my measurements on both the new and old scan. No new, increasing-sized or worrisome pulmonary nodule is seen. LUNGS: Lungs bilaterally symmetrically expanded. Mild emphysematous changes are seen along with bronchial thickening. No effusion or pneumothorax. Central airways patent. MEDIASTINUM: No mediastinal, hilar or axillary adenopathy or free fluid collection. CORONARY ARTERY CALCIFICATION: None visualized on this study. THYROID GLAND: Unremarkable to the extent seen. CARDIOVASCULAR STRUCTURES: Aortic and heart size normal. No pericardial effusion. CHEST WALL/AXILLA: Unremarkable. UPPER ABDOMEN: Included portions of the solid organs in the upper abdomen unremarkable on noncontrast imaging. OSSEOUS STRUCTURES: No suspicious focal findings. CT/CT lung screening IMPRESSION: Benign, unchanged pulmonary nodules. No evidence of malignancy. ASSESSMENT: 1. Lung-RADS Category 2: Benign appearance or behavior of nodules. N/A. 2. Lung-RADS Category S: Negative. There are no clinically significant or potentially clinically significant findings not related to the lungs requiring urgent additional evaluation. RECOMMENDATION: Continued routine annual low-dose CT lung screening in 1 year is recommended. An order for CT CHEST LOW DOSE CANCER SCREENING ([id number]) can be placed.
== END 2024-03-06 14:22 | disposition home or self-care (01) ==
LOC: HO.CT 14:21
PROVIDERS: PCP Internal Medicine; Visit Provider Physician Assistant Medical
DX: Z12.2 Encounter for screening for malignant neoplasm of respiratory organs (principal); F17.210 Nicotine dependence, cigarettes, uncomplicated
CPT/HCPCS: 71271

== ENCOUNTER 2024-06-23 11:27 | Outpatient (REF) | payer BC, SELFPAY ==
[2024-06-23 13:50] LABS: Alanine Aminotransferase 13 U/L (0-31); Anion Gap 10 (12-20); Aspartate Amino Transferase 16 U/L (5-31); Blood Urea Nitrogen 9 mg/dL (9-16); Carbon Dioxide 27 mmol/L (22-29); Chloride 106 mmol/L (96-108); Cholesterol 186 mg/dL (<200); Estimated Glomerular Filt Rate > 60; Glucose Fasting 99 mg/dL (60-99); HDL Cholesterol 40 mg/dL (>40); LDL Cholesterol Calculated 89 mg/dL (<100); Potassium 4.2 mmol/L (3.3-5.1); Sodium 139 mmol/L (135-145); Triglycerides 286 mg/dL (<150)
[2024-06-23 13:55] LABS: Free T4 (Free Thyroxine) 1.17 ng/dL (0.71-1.85); Thyroid Stimulating Hormone 0.99 uIU/mL (0.32-4.0); Vitamin D 25-OH Total 74.1 ng/mL (>30)
== END 2024-06-23 11:28 | disposition home or self-care (01) ==
LOC: HO.HMGCLDS 11:27
PROVIDERS: PCP Internal Medicine; Visit Provider Internal Medicine
DX: E78.5 Hyperlipidemia, unspecified (principal); I10 Essential (primary) hypertension; E03.9 Hypothyroidism, unspecified; Z78.0 Asymptomatic menopausal state
CPT/HCPCS: 36415; 80048; 80061; 82306; 84439; 84443; 84450; 84460

== ENCOUNTER 2024-07-03 08:57 | Outpatient (AMB) | payer BC, SELFPAY ==
--- NOTE | 2024-07-03 09:22 | A.OFFPC_ITS ---
Vital Signs 07/03/24 09:26 Height 5 ft 6 in Weight 236 lb BMI 38.1 BP 128/80 Blood Pressure Location Lt brachial Position Sitting Pulse 68 Pulse Source Pulse Oximeter Pulse Oximetry (%) 98 Oxygen Delivery Method Room Air Intake Visit Reasons: Medical Follow up Intake Note: Patient here to f/u on labs Allergies hayfever Allergy (Uncoded 07/06/24 17:38) Rash Medication List - Last Reconciled 07/06/24 by Kelsey Keith MD albuterol sulfate 90 mcg/actuation (ProAir HFA) 1 inh inhalation QID PRN atorvastatin 20 mg PO .qod ciclopirox 8% 1 appl topical BEDTIME 4 weeks eszopiclone (Lunesta) 3 mg PO BEDTIME PRN fluticasone propion-salmeterol 100-50 mcg/dose 1 ea inhalation BID ibuprofen 800 mg PO Q12H PRN levothyroxine 137 mcg PO QAM metoprolol succinate ER 50 mg PO DAILY omeprazole 20 mg PO DAILY Tobacco use date assessed: 11/08/23 Dental Screening Dental Screen Date: 11/08/23 HPI Medical Follow up HPI Details 59-year-old lady with Hypertension, acqu ired hypothyroidism, hyperlipidemia, and mild intermittent asthma , here roday for her her follow up visit . She has been taking her medicines as directed, trying to follow recommended diet but does not get any regular exercise. She has been feeling well otherwise, with no complaints except for occasional dyspepsia usually with certain food intake. She however continues to smokes cigarettes, with no desire to quit at present time. [facility] Medical History (Updated 07/06/24 @ 17:50 by Kelsey Keith MD) Osteoarthritis of right knee Smoker unmotivated to quit Dyspepsia Intermittent left-sided chest pain Pulmonary nodule Bilateral lower extremity edema Not ready to quit smoking Insomnia Obesity Personal history of nicotine dependence Multinodular thyroid Abnormal nerve conduction studies Peroneal neuropathy Migraine Mild intermittent asthma Dyslipidemia Chronic left mastoiditis Allergic rhinitis Deviated nasal septum Essential hypertension Acquired hypothyroidism Surgical History Hx of foot surgery History of section History of tonsillectomy History of carpal tunnel surgery of right wrist History of esophagogastroduodenoscopy (EGD) (~2017) History of thoracic surgery (~2007) Family History Father Heart disease Emphysema, unspecified Mother HTN (hypertension) Hyperlipidemia Paternal Aunt Breast cancer Paternal Uncle Cancer of prostate Brother No problems noted. Brother No problems noted. Daughter No problems noted. Social History Housing: House Alcohol intake: current Patient Tobacco Use Status: Current everyday Tobacco user Tobacco use type: Cigarette Cigarette Packs Per Day: 1 Years Smoked: 42 (onset 14yo, 1ppd x 42yrs, 40pyh) e-Cigarette/Vaping Use: Never Used Second Hand Smoke Exposure: No Current occupational status: employed Current occupation: assisting cook Current occupational exposures/hazards: No Cognitive needs: No Hearing needs: No Vision needs: No Questionnaire PHQ-9 Over the last 2 weeks, how often have you been bothered by any of the following problems? Depression Screening Interpretation: Negative Depression Screening Done: Yes Source: Developed by Drs. Flynn Gotti, Samantha Jolley, Sebastián Childress and colleagues, with an educational collette from [employer]. Thrive Questionnaire Date Thrive assessed: 11/08/23 I am a: Patient What is your living situation today?: I have a steady place to live Within the past 12 months, did the food you bought not last and you didn't have the money to get more?: Never true Within the past 12 months, did you worry whether your food would run out before you got money to buy more?: Never true Do you have trouble paying for medicines?: No Do you have trouble getting transportation to medical appointments?: No Do you have trouble paying your heating and electricity bill?: No Do you have trouble taking care of your child, family member or friend?: No Do you have trouble with day-to-day activities such as bathing, preparing meals, shopping, managing finances, etc.?: No Are you currently unemployed and looking for a job?: I choose not to answer this question Are you interested in more education?: No Please select the resources that you would like help with: None Currently or been in a relationship where the following occur: No concerns reported THRIVE Score: 0 AUDIT C Alcohol Use Questionnaire (AUDIT-C) 1. How often do you have a drink containing alcohol?: 2-4 times a month 2. How many drinks containing alcohol do you have on a typical day when you are drinking?: 3 or 4 3. How often do you have six or more drinks on one occasion?: Less than monthly Total Score: 4 ALESSIO-7 AMB Questionnaire ALESSIO-7 Date ALESSIO - 7 assessed: 11/08/23 Feeling nervous, anxious, or on edge: 0 = Not at all Not being able to stop or control worryin = Not at all Worrying too much about different things: 0 = Not at all Trouble relaxin = Not at all Being so restless that it is hard to sit still: 0 = Not at all Becoming easily annoyed or irritable: 0 = Not at all Feeling afraid as if something awful might happen: 0 = Not at all Total ALESSIO-7 score (0-4 normal; 5-9 mild; 10-14 moderate; 15-21 severe): 0 Source: Developed by Drs. Fylnn Gotti, Samantha Jolley, Sebastián Childress and colleagues, with an educational collette from [employer]. ALESSIO-7 Assessment Billing ALESSIO-7 Assessment Tool: ALESSIO-7 Assessment 40275 Review of Systems Const Denies chills, Denies fatigue, Denies fever(s) and Denies frequent falls ENT Denies dizziness Card Denies chest pain, Denies leg edema, Denies lightheadedness, Denies palpitations and Denies dyspnea on exertion Resp Denies cough and Denies dyspnea on exertion GI Reports as per HPI, Denies melena, Denies hematochezia and Denies change in stool character Reports no additional complaints Musc Denies abnormal gait, Reports arthralgias (Knee), Denies joint swelling, Denies muscle weakness, Denies radiating pain into limb and Reports stiffness Neuro Denies abnormal gait, Denies dizziness and Denies frequent falls Psych Reports no additional complaints Endo Denies fatigue and Denies palpitations Earl/Lymph Reports no additional complaints Aller/Immun Reports no additional complaints Physical exam (Primary Care) Vital Signs: Last Vital Signs Pulse 68 07/03/24 09:26 BP 128/80 07/03/24 09:26 Pulse Ox 98 07/03/24 09:26 Oxygen Delivery Method Room Air 07/03/24 09:26 BMI result Body Mass Index 38.1 BMI Assessment/Plan discussion: High BMI High, discussed plan: lifestyle, weight reduction, dietary and physical activity Tobacco/Smoking Status: Tobacco use Status Tobacco use date assessed 11/08/23 07/03/24 09:29 Patient Tobacco Use Status Current everyday Tobacco 07/03/24 09:29 Tobacco use type Cigarette 07/03/24 09:29 e-Cigarette/Vaping Use Never Used 07/03/24 09:29 Are you ready to quit: No Tobacco cessation counseling provided: Yes Depression Screening Interpretation: Negative Thrive Assessment: Date of Thrive Assessment Date Thrive assessed 11/08/23 07/03/24 09:29 Currently or been in a relationship where the following occur: No concerns reported Const General: comfortable and no acute distress Orientation/consciousness: patient oriented x3 HENMT Other: Still having sensation of fullness in left ear. Currently being followed by ENT a [facility], who she states referred her for TMJ evaluation and treat General nose exam: Normal external nose present and No nasal discharge present Mouth: Normal oral and palatal mucosa present and moist mucous membranes Eyes General: appearance normal, both eyes and all related structures Conjunctivae: conjunctivae normal Sclerae: sclerae normal Pupils: Equal, round and reactive pupils present EOM: EOMs intact bilaterally Neck Neck: Yes full ROM, Yes no lymphadenopathy and Yes supple Resp Effort & Inspection: normal respiratory effort and able to speak in complete sentences Auscultation: clear to auscultation bilaterally Cardio Rate: regular rate Rhythm: regular rhythm Heart sounds: S1 normal heart sound present and S2 normal heart sound present GI Inspection: Yes normal to inspection Palpation (GI): Soft to palpation, nontender, no guarding and no masses General: Yes no CVA tenderness Back/Spine/Pelvis Back: no CVA tenderness and No back tenderness Skin General skin exam: no rashes or lesions noted Neuro General: patient oriented x3, gait normal, tone normal, Normal light touch and pain sensation and no focal motor deficits Cranial nerves: Yes Equal, round and reactive pupils present Extrem Other: Crepitus right knee General: Yes full ROM, Yes no joint enlargement and Yes normal gait Psych Appearance: grossly normal and well kempt Mental Status: mental status grossly normal Speech and movement: Normal speech and movement present Affect: normal affect Thought process: Normal thought process present Results Reviewed Results Reviewed: reggie: Rosamaria Austin Janey Age/Sex: 59/F : 1965 Unit#: [id number] Attend Dr: Kelsey Keith MD Re06/23/24 Status: DEP [facility] Disch: SPEC : [id number] SANTANA: 06/23/24 STATUS: COMP REQ : [id number] RECD: 06/23/24-[address]: Kelsey Keith MD COMP: 06/23/24-1354 ENTERED: 06/23/24-[address]: ORDERED: Met Prof Fast, AST, ALT, Lipid Panel, Vitamin D 25-OH, Free T4, TSH Test Result Flag Reference Sodium 139 135-145 mmol/L Potassium 4.2 3.3-5.1 mmol/L CL 106 96-108 mmol/L CO2 27 22-29 mmol/L Gap 10 L 12-20 BUN 9 9-16 mg/dL Creat 0.82 0.5-1.4 mg/dL EGFR > 60 NOTE: For -[place] individuals, multiply the result by 1.210. Chronic Kidney Disease: Estimated GFR < 60 mL/min/1.73m2 Severe Kidney Disease: Estimated GFR < 15 mL/min/1.73m2 FBS 99 60-99 mg/dL CA 10.0 8.4-10.2 mg/dL AST (GOT) 16 5-31 U/L ALT (GPT) 13 0-31 U/L Triglyceride 286 H <150 mg/dL Desirable Triglyceride: less than 150 mg/dL Borderline High Triglyceride 150-199 mg/dL High Triglyceride: 200-499 mg/dL Very High Triglyceride: greater than or equal to 5OO mg/dL Cholesterol 186 <200 mg/dL Desirable Cholesterol: less than 200 mg/dL Borderline High Cholesterol: 200-239 mg/dL High Cholesterol: greater than 239 mg/dL LDL Calculated 89 <100 mg/dL Desirable LDL: less than 100 mg/dL Near Optimal/Above Optimal LDL: 110-129 mg/dL Borderline High LDL: 130-159 mg/dL High LDL: 160-189 mg/dL Very High LDL: greater than or equal to 190 mg/dL HDL 40 L >40 mg/dL Desirable HDL: greater than 40 mg/dL Note: This HDL assay may give artificially low results in patients with liver disease. Vit D 25-OH Tot 74.1 >30 ng/mL Health Based Reference Values* < 20 ng/mL Deficient 20-30 ng/mL Insufficient > 30 ng/mL Sufficient *Mena FARNSWORTH. N Engl J Med. 2007;[id number] Care must be taken in interpreting Vitamin D results from different laboratories and methodologies. Published data demonstrated that results from patients undergoing hemodialysis may show a negative bias when tested with various automated 25-OH vitamin D assays when compared to LC-MS/MS. When testing samples from patients whose predominant form of Vitamin D is Vitamin D2, such as patients receiving Vitamin D2 supplementation, results that are subtherapeutic should be confirmed with another method such as LC-MS/MS. Free T4 1.17 0.71-1.85 ng/dL TSH 3rd Gen. 0.99 0.32-4.0 uIU/mL Lower triglycerides how to lower triglyceride Assessment and Plan Assessment & Plan (1) Dyslipidemia: Code(s): E78.5 - Hyperlipidemia, unspecified Plan: Reviewed recent fasting lipid profile with patient with levels within normal limits except for elevated triglycerides. . Continue atorvastatin 20 mg daily , in addition to adherence to low-cholesterol diet and regular exercise, at least 30 minutes 3 to 4 times a week. Advised patient to make healthy food choices, eat more fruits, vegetables, whole grains, wild caught fish and low- fat dairy. Limit amount of meat and fried or fatty food products, as well as processed foods and fast foods. Follow-up scheduled with repeat fasting lipid panel in 3 months. (2) Essential hypertension: Code(s): I10 - Essential (primary) hypertension Plan: Blood pressure stable controlled on metoprolol succinate ER 50 mg daily (3) Acquired hypothyroidism: Code(s): E03.9 - Hypothyroidism, unspecified Plan: Thyroid levels are within normal limits, continue with current dose of levothyroxine 137 mcg daily in a.m. (4) Dyspepsia: Code(s): R10.13 - Epigastric pain Plan: Currently on omeprazole 20 mg daily , avoidance of triggers heartburn discussed with patient. Smoking strongly advised (5) Smoker unmotivated to quit: Code(s): F17.200 - Nicotine dependence, unspecified, uncomplicated Plan: Patient strongly advised to stop smoking, as smoking damages blood vessels, degenerative of joints and spine, damage to lungs and heart., predisposes to developing certain cancers like lung, breast, bladder, colon. Recommended to try decreasing cigarette use by 1-2 cigarettes a day. Advised to monitor what triggers are for smoking so that this can be discussed on the next office visit. We can discuss different options to quit smoking when ready. (6) Osteoarthritis of right knee: Code(s): M17.11 - Unilateral primary osteoarthritis, right knee Plan: Currently being followed at [facility] Orders: Orders Alanine Aminotransferase 09/28/24 E78.5 - Hyperlipidemia, unspecified Lipid Panel 09/28/24 E78.5 - Hyperlipidemia, unspecified Aspartate Amino Transferase 09/28/24 E78.5 - Hyperlipidemia, unspecified Coding Level of Care Code Est Pt Level 4 (36373) Complex EM visit Add On G2211 Diagnoses Dyslipidemia E78.5 Essential hypertension I10 Acquired hypothyroidism E03.9 Dyspepsia R10.13 Smoker unmotivated to quit F17.200 Osteoarthritis of right knee M17.11 Additional Codes ALESSIO-7 Assessment Billing - ALESSIO-7 Assessment Tool: ALESSIO-7 Assessment 76673 ([id number])
[2024-07-03 09:26] VITALS: BP 128/80; PULSE 68; O2SAT 98; BMI 38.1
== END 2024-07-03 10:08 | disposition home or self-care (01) ==
PROVIDERS: PCP Internal Medicine; Visit Provider Internal Medicine
DX: E78.5 Hyperlipidemia, unspecified (principal); I10 Essential (primary) hypertension; E03.9 Hypothyroidism, unspecified; R10.13 Epigastric pain; F17.200 Nicotine dependence, unspecified, uncomplicated; M17.11 Unilateral primary osteoarthritis, right knee
CPT/HCPCS: 99214

== ENCOUNTER 2024-07-28 14:19 | Outpatient (REF) | payer BC, SELFPAY ==
--- NOTE | ~2024-07-28 | MM_ITS ---
EXAMINATION: MM SCREENING DIGITAL BREAST TOMOSYNTHESIS, BILATERAL CLINICAL INFORMATION: Screening. Asymptomatic. COMPARISON: Mammography: Comparison is made with available priors TECHNIQUE: Digital breast mammography with tomosynthesis is performed in both the craniocaudal and mediolateral oblique views along with computer-aided detection (CAD). FINDINGS: There are scattered areas of fibroglandular density (ACR BI-RADS breast composition Category b). There are no significant masses, abnormal calcifications, or other abnormalities. MM/MM tomosynthesis screening BI IMPRESSION: No mammographic evidence of malignancy. ASSESSMENT: BI-RADS BI-RADS 1 - Negative RECOMMENDATION: Routine annual mammography screening. 1 year F/U This examination should not preclude the clinical evaluation of a suspicious palpable abnormality. This patient's information was entered into a reminder system with a target due date for their next mammogram. Electronically signed by: Rubina Awad DO 08/07/2024 06:36 PM EDT
== END 2024-07-28 14:20 | disposition home or self-care (01) ==
LOC: HO.MAMMO 14:19
PROVIDERS: PCP Internal Medicine; Visit Provider Internal Medicine
DX: Z12.31 Encounter for screening mammogram for malignant neoplasm of breast (principal)
CPT/HCPCS: 77063; 77067

== ENCOUNTER → 2024-07-28 15:00 | Outpatient (BNV) | payer BC, SELFPAY | PROVIDERS: PCP Internal Medicine; Visit Provider Internal Medicine | DX: Z12.31 Encounter for screening mammogram for malignant neoplasm of breast (principal) | CPT/HCPCS: 77063; 77067 ==

== ENCOUNTER 2024-09-29 06:05 | Outpatient (REF) | payer BC, SELFPAY ==
[2024-09-29 11:02] LABS: Alanine Aminotransferase 18 U/L (0-31); Aspartate Amino Transferase 16 U/L (5-31); Cholesterol 197 mg/dL (<200); HDL Cholesterol 59 mg/dL (>40); LDL Cholesterol Calculated 107 mg/dL (<100); Triglycerides 159 mg/dL (<150)
== END 2024-09-29 06:06 | disposition home or self-care (01) ==
LOC: HO.HMGCLDS 06:05
PROVIDERS: PCP Internal Medicine; Visit Provider Internal Medicine
DX: E78.5 Hyperlipidemia, unspecified (principal)
CPT/HCPCS: 36415; 80061; 84450; 84460

== ENCOUNTER 2024-10-02 15:13 | Outpatient (AMB) | payer BC, SELFPAY ==
[2024-10-02 15:42] VITALS: BP 138/80; PULSE 72; O2SAT 98; BMI 38.7
--- NOTE | 2024-10-02 15:42 | A.OFFPC_ITS ---
Vital Signs 10/02/24 15:42 Height 5 ft 6 in Weight 240 lb BMI 38.7 BP 138/80 Blood Pressure Location Rt brachial Position Sitting Pulse 72 Pulse Source Pulse Oximeter Pulse Oximetry (%) 98 Oxygen Delivery Method Room Air Intake Visit Reasons: 6 Month F/U thyroid, Asthma, Lipids and HTN Intake Note: Pt is here today for her 6mo. f/u thyriod, asthma, lipids and HTN Allergies hayfever Allergy (Uncoded 10/02/24 15:56) Rash Medication List - Last Reconciled 10/02/24 by Kelsey Keith MD albuterol sulfate 90 mcg/actuation (ProAir HFA) 1 inh inhalation QID PRN atorvastatin 20 mg PO .qod ciclopirox 8% 1 appl topical BEDTIME 4 weeks eszopiclone (Lunesta) 3 mg PO BEDTIME PRN ibuprofen 800 mg PO Q12H PRN levothyroxine 137 mcg PO QAM metoprolol succinate ER 50 mg PO DAILY omeprazole 20 mg PO DAILY Tobacco use date assessed: 10/02/24 Dental Screening Dental Screen Date: 10/02/24 Did you have a dental visit in the last 12 months?: Yes Did you have a dental problem in the last 6 months where you did not have access to dental care?: Yes Was dental information given to patient?: Patient has dentist HPI 6 Month F/U thyroid, Asthma, Lipids and HTN HPI Details - The patient is a 59-year-old female pr esenting with medication management and evaluation of ongoing conditions. - She has a history of hypertension, cur rently managed with metoprolol 50 mg, with blood pressure well controlled on present treatment. - She is on atorvastatin 20 mg daily for hyperlipidemia, with improved triglyceride levels but slightly increased LDL cholesterol. - Reports eczema and thickened and disco lored toenails, for which she uses topical ciclopirox solution on toenails, requesting a refill. - Struggles with insomnia, taking eszopi clone 3 mg, which aids slightly in sleep duration; usually wakes every two hours. - Experiences increased gas since bilate ral knee replacements, with constipation post-surgery but currently has been having regular bowel movements. - Diagnosed with osteoarthritis, notably affecting knees with history of prior knee replacements,, requesting referral for massage therapy - Experienced facial swelling with amoxi cillin, now uses clindamycin for dental prophylaxis. - Manages heartburn with omeprazole, pre viously inconsistent use, now taken daily with good results.. - Cardiovascular risk factors include hi story of dyslipidemia, improved lipid profile under current medication regimen. [facility] Medical History (Updated 10/05/24 @ 01:36 by Kelsey Keith MD) Osteoarthritis Osteoarthritis of right knee Smoker unmotivated to quit Dyspepsia Intermittent left-sided chest pain Pulmonary nodule Bilateral lower extremity edema Not ready to quit smoking Insomnia Obesity Personal history of nicotine dependence Multinodular thyroid Abnormal nerve conduction studies Peroneal neuropathy Migraine Mild intermittent asthma Dyslipidemia Chronic left mastoiditis Allergic rhinitis Deviated nasal septum Essential hypertension Acquired hypothyroidism Surgical History Hx of foot surgery History of section History of tonsillectomy History of carpal tunnel surgery of right wrist History of esophagogastroduodenoscopy (EGD) (~2018) History of thoracic surgery (~2007) Family History Father Heart disease Emphysema, unspecified Mother HTN (hypertension) Hyperlipidemia Paternal Aunt Breast cancer Paternal Uncle Cancer of prostate Brother No problems noted. Brother No problems noted. Daughter No problems noted. Social History Housing: House Alcohol intake: current Patient Tobacco Use Status: Current everyday Tobacco user Tobacco use type: Cigarette Cigarette Packs Per Day: 1 Years Smoked: 42 (onset 14yo, 1ppd x 42yrs, 40pyh) e-Cigarette/Vaping Use: Never Used Second Hand Smoke Exposure: No Current occupational status: employed Current occupation: assisting cook Current occupational exposures/hazards: No Cognitive needs: No Hearing needs: No Vision needs: No Questionnaire Thrive Questionnaire Date Thrive assessed: 06/26/24 I am a: Patient What is your living situation today?: I have a steady place to live Within the past 12 months, did the food you bought not last and you didn't have the money to get more?: Never true Within the past 12 months, did you worry whether your food would run out before you got money to buy more?: Never true Do you have trouble paying for medicines?: No Do you have trouble getting transportation to medical appointments?: No Do you have trouble paying your heating and electricity bill?: No Do you have trouble taking care of your child, family member or friend?: No Do you have trouble with day-to-day activities such as bathing, preparing meals, shopping, managing finances, etc.?: No Are you currently unemployed and looking for a job?: I choose not to answer this question Are you interested in more education?: No Please select the resources that you would like help with: None Currently or been in a relationship where the following occur: No concerns reported THRIVE Score: 0 ALESSIO-7 AMB Questionnaire ALESSIO-7 Date ALESSIO - 7 assessed: 11/08/23 Feeling afraid as if something awful might happen: 0 = Not at all Source: Developed by Drs. Flynn Gotti, Samantha Jolley, Sebastián Childress and colleagues, with an educational collette from [employer]. Review of Systems Const Denies chills, Denies fatigue, Denies fever(s) and Denies frequent falls ENT Denies dizziness Card Denies chest pain, Denies leg edema, Denies lightheadedness, Denies palpitations and Denies dyspnea on exertion Resp Denies cough and Denies dyspnea on exertion GI Denies melena, Denies hematochezia and Denies change in stool character Reports no additional complaints Musc Denies abnormal gait, Reports arthralgias (Knee), Denies joint swelling, Denies muscle weakness, Denies radiating pain into limb and Reports stiffness Skin/Breast Reports as per HPI Neuro Denies abnormal gait, Denies dizziness and Denies frequent falls Psych Reports no additional complaints Endo Denies fatigue and Denies palpitations Earl/Lymph Reports no additional complaints Aller/Immun Reports no additional complaints Physical exam (Primary Care) Vital Signs: Last Vital Signs Pulse 72 10/02/24 15:42 BP 138/80 10/02/24 15:42 Pulse Ox 98 10/02/24 15:42 Oxygen Delivery Method Room Air 10/02/24 15:42 BMI result Body Mass Index 38.7 BMI Assessment/Plan discussion: High BMI High, discussed plan: lifestyle, weight reduction, dietary and physical activity Tobacco/Smoking Status: Tobacco use Status Tobacco use date assessed 10/02/24 10/02/24 15:46 Patient Tobacco Use Status Current everyday Tobacco 10/02/24 15:46 Tobacco use type Cigarette 10/02/24 15:46 e-Cigarette/Vaping Use Never Used 10/02/24 15:46 Are you ready to quit: No Tobacco cessation counseling provided: Yes Thrive Assessment: Date of Thrive Assessment Date Thrive assessed 06/26/24 10/02/24 15:46 Currently or been in a relationship where the following occur: No concerns reported Const General: comfortable and no acute distress Orientation/consciousness: patient oriented x3 [facility] General nose exam: Normal external nose present and No nasal discharge present Mouth: Normal oral and palatal mucosa present and moist mucous membranes Eyes General: appearance normal, both eyes and all related structures Conjunctivae: conjunctivae normal Sclerae: sclerae normal Pupils: Equal, round and reactive pupils present EOM: EOMs intact bilaterally Neck Neck: Yes full ROM, Yes no lymphadenopathy and Yes supple Resp Effort & Inspection: normal respiratory effort and able to speak in complete sentences Auscultation: clear to auscultation bilaterally Cardio Rate: regular rate Rhythm: regular rhythm Heart sounds: S1 normal heart sound present and S2 normal heart sound present GI Inspection: Yes normal to inspection Palpation (GI): Soft to palpation, nontender, no guarding and no masses General: Yes no CVA tenderness Back/Spine/Pelvis Back: no CVA tenderness and No back tenderness Skin Other: Thick discolored toenails bilateral Neuro General: patient oriented x3, gait normal, tone normal, Normal light touch and pain sensation and no focal motor deficits Cranial nerves: Yes Equal, round and reactive pupils present Extrem Other: Crepitus right knee General: Yes full ROM, Yes no joint enlargement and Yes normal gait Psych Appearance: grossly normal and well kempt Mental Status: mental status grossly normal Speech and movement: Normal speech and movement present Affect: normal affect Thought process: Normal thought process present Results Reviewed Results Reviewed: Name: Rosamaria Austin Age/Sex: 59/F : 1965 Unit#: [id number] Attend Dr: Kelsey Keith MD Re09/29/24 Status: DEP REF Location: [facility] Disch: SPEC : [id number] SANTANA: 09/29/24 STATUS: COMP REQ : [id number] RECD: 09/29/[address] [facility] [address]: Kelsey Keith MD COMP: 09/29/24 ENTERED: 09/29/24 [facility] DR: ORDERED: AST, ALT, Lipid Panel Test Result Flag Reference AST (GOT) 16 5-31 U/L ALT (GPT) 18 0-31 U/L Triglyceride 159 H <150 mg/dL Desirable Triglyceride: less than 150 mg/dL Borderline High Triglyceride 150-199 mg/dL High Triglyceride: 200-499 mg/dL Very High Triglyceride: greater than or equal to 5OO mg/dL Cholesterol 197 <200 mg/dL Desirable Cholesterol: less than 200 mg/dL Borderline High Cholesterol: 200-239 mg/dL High Cholesterol: greater than 239 mg/dL LDL Calculated 107 H <100 mg/dL Desirable LDL: less than 100 mg/dL Near Optimal/Above Optimal LDL: 110-129 mg/dL Borderline High LDL: 130-159 mg/dL High LDL: 160-189 mg/dL Very High LDL: greater than or equal to 190 mg/dL HDL 59 >40 mg/dL Desirable HDL: greater than 40 mg/dL Note: This HDL assay may give artificially low results in patients with liver disease. Laboratory Tests 06/23/24 11:30 25-OH Vitamin D Total 74.1 TSH 0.99 Free T4 1.17 Coding Level of Care Code Est Pt Level 4 (97406) Complex EM visit Add On G2211 Diagnoses Acquired hypothyroidism E03.9 Essential hypertension I10 Dyslipidemia E78.5 Primary insomnia F51.01 Insomnia type: primary Assessment & Plan Assessment & Plan (1) Acquired hypothyroidism: Code(s): E03.9 - Hypothyroidism, unspecified Category: Medical (2) Essential hypertension: Code(s): I10 - Essential (primary) hypertension Category: Medical (3) Dyslipidemia: Code(s): E78.5 - Hyperlipidemia, unspecified Category: Medical (4) Insomnia: Code(s): G47.00 - Insomnia, unspecified Category: Medical Qualifiers: Insomnia type: primary Qualified Code(s): F51.01 - Primary insomnia Plan - Hypertension: Continue metoprolol 50 mg daily, monitor blood pressure. - Hyperlipidemia: Continue atorvastatin 20 mg daily, re-evaluate lipid profile in subsequent visits. - Eczema: Refill ciclopirox solution, instruct on proper use nightly for four weeks. - Insomnia: Continue eszopiclone 3 mg nightly, consider sleep study if symptoms persist. - Gastrointestinal symptoms: Suggest specific probiotics for gastrointestinal health. - Osteoarthritis: Approve monthly massage therapy, encourage compliance with exercise regimen. - Penicillin allergy: Document allergy, continue clindamycin for prophylaxis prior to dental procedure. - Acid reflux: Encourage consistent daily omeprazole use. - Cardiovascular health: Continue current lipid management, encourage diet and exercise. Patient was informed and verbally consented to the use of an ambient scribe for clinic note documentation during this visit. Orders: Orders Lipid Panel 12/13/24 E03.9 - Hypothyroidism, unspecified, E78.5 - Hyperlipidemia, unspecified, G47.00 - Insomnia, unspecified, I10 - Essential (primary) hypertension, M19.90 - Unspecified osteoarthritis, unspecified site, Z78.0 - Asymptomatic menopausal state Thyroid Stimulating Hormone 12/13/24 E03.9 - Hypothyroidism, unspecified, E78.5 - Hyperlipidemia, unspecified, G47.00 - Insomnia, unspecified, I10 - Essential (primary) hypertension, M19.90 - Unspecified osteoarthritis, unspecified site, Z78.0 - Asymptomatic menopausal state Basic Metabolic Panel Fasting 12/13/24 E03.9 - Hypothyroidism, unspecified, E78.5 - Hyperlipidemia, unspecified, G47.00 - Insomnia, unspecified, I10 - Essential (primary) hypertension, M19.90 - Unspecified osteoarthritis, unspecified site, Z78.0 - Asymptomatic menopausal state Aspartate Amino Transferase 12/13/24 E03.9 - Hypothyroidism, unspecified, E78.5 - Hyperlipidemia, unspecified, G47.00 - Insomnia, unspecified, I10 - Essential (primary) hypertension, M19.90 - Unspecified osteoarthritis, unspecified site, Z78.0 - Asymptomatic menopausal state Vitamin D 25-OH Total 12/13/24 E03.9 - Hypothyroidism, unspecified, E78.5 - Hyperlipidemia, unspecified, G47.00 - Insomnia, unspecified, I10 - Essential (primary) hypertension, M19.90 - Unspecified osteoarthritis, unspecified site, Z78.0 - Asymptomatic menopausal state Vitamin B12 and Folate 12/13/24 E03.9 - Hypothyroidism, unspecified, E78.5 - Hyperlipidemia, unspecified, G47.00 - Insomnia, unspecified, I10 - Essential (primary) hypertension, M19.90 - Unspecified osteoarthritis, unspecified site, Z78.0 - Asymptomatic menopausal state Free T4 (Free Thyroxine) 12/13/24 E03.9 - Hypothyroidism, unspecified, E78.5 - Hyperlipidemia, unspecified, G47.00 - Insomnia, unspecified, I10 - Essential (primary) hypertension, M19.90 - Unspecified osteoarthritis, unspecified site, Z78.0 - Asymptomatic menopausal state Alanine Aminotransferase 12/13/24 E03.9 - Hypothyroidism, unspecified, E78.5 - Hyperlipidemia, unspecified, G47.00 - Insomnia, unspecified, I10 - Essential (primary) hypertension, M19.90 - Unspecified osteoarthritis, unspecified site, Z78.0 - Asymptomatic menopausal state Medications: Refilled ciclopirox 8% 1 appl topical BEDTIME 6.6 mL 0RF 4 weeks eszopiclone (Lunesta) 3 mg PO BEDTIME PRN 30 tabs 0RF insomnia
== END 2024-10-02 16:24 | disposition home or self-care (01) ==
PROVIDERS: PCP Internal Medicine; Visit Provider Internal Medicine
DX: E03.9 Hypothyroidism, unspecified (principal); I10 Essential (primary) hypertension; E78.5 Hyperlipidemia, unspecified; F51.01 Primary insomnia

== ENCOUNTER → 2024-10-02 15:13 | Outpatient (BNVA) | payer BC, SELFPAY | PROVIDERS: PCP Internal Medicine; Visit Provider Internal Medicine ==

== ENCOUNTER 2024-11-11 13:43 | Outpatient (AMB) | payer BC, SELFPAY ==
[2024-11-11 13:45] VITALS: BP 120/80; PULSE 80; BMI 40.2
--- NOTE | 2024-11-11 13:45 | A.OFFVIS_ITS ---
Vital Signs 11/11/24 13:45 Height 5 ft 6 in Weight 249 lb 1.957 oz BMI 40.2 BP 120/80 Blood Pressure Location Lt brachial Position Sitting Pulse 80 Pulse Source Monitor Intake Visit Reasons: 1 yr f/up Allergies hayfever Allergy (Uncoded 10/02/24 15:56) Rash Medication List - Last Reconciled 11/11/24 by Zaid Jordan MD albuterol sulfate 90 mcg/actuation (ProAir HFA) 1 inh inhalation QID PRN atorvastatin 20 mg PO .qod ciclopirox 8% 1 appl topical BEDTIME 4 weeks eszopiclone (Lunesta) 3 mg PO BEDTIME PRN ibuprofen 800 mg PO Q12H PRN levothyroxine 137 mcg PO QAM metoprolol succinate ER 50 mg PO DAILY omeprazole 20 mg PO DAILY HPI Comments Details: Rosamaria returns for follow-up. In the past, she was seen regarding chest pains. Was happening randomly with or without activity. She was also having some shortness of breath. Chronic smoker and still smokes. She underwent an echocardiogram and stress test. They were unremarkable. She states for the most part she feels fine. She has not really had any clear angina or in fact anything cardiac sounding. [facility] Medical History (Updated 11/11/24 @ 14:29 by Zaid Jordan MD) Osteoarthritis Osteoarthritis of right knee Smoker unmotivated to quit Dyspepsia Intermittent left-sided chest pain Pulmonary nodule Bilateral lower extremity edema Not ready to quit smoking Insomnia Obesity Personal history of nicotine dependence Multinodular thyroid Abnormal nerve conduction studies Peroneal neuropathy Migraine Mild intermittent asthma Dyslipidemia Chronic left mastoiditis Allergic rhinitis Deviated nasal septum Essential hypertension Acquired hypothyroidism Surgical History Hx of foot surgery History of section History of tonsillectomy History of carpal tunnel surgery of right wrist History of esophagogastroduodenoscopy (EGD) (~2017) History of thoracic surgery (~2006) Family History Father Heart disease Emphysema, unspecified Mother HTN (hypertension) Hyperlipidemia Paternal Aunt Breast cancer Paternal Uncle Cancer of prostate Brother No problems noted. Brother No problems noted. Daughter No problems noted. Social History Housing: House Alcohol intake: current Patient Tobacco Use Status: Current everyday Tobacco user Tobacco use type: Cigarette Cigarette Packs Per Day: 1 Years Smoked: 42 (onset 14yo, 1ppd x 42yrs, 40pyh) e-Cigarette/Vaping Use: Never Used Second Hand Smoke Exposure: No Current occupational status: employed Current occupation: assisting cook Current occupational exposures/hazards: No Cognitive needs: No Hearing needs: No Vision needs: No Review of Systems Const Denies weakness ENT Denies dizziness Card Reports chest pain, Denies chest pain with activity, Denies syncope, Denies rapid heart rate, Denies pedal edema, Denies edema, Denies leg edema, Denies lightheadedness, Denies palpitations, Denies dyspnea, Denies dyspnea on exertion and Denies orthopnea Resp Denies cough, Denies dyspnea and Denies dyspnea on exertion GI Denies hematochezia and Denies change in stool character Musc Denies abnormal gait, Denies muscle cramps, Denies muscle weakness, Denies numbness, Denies radiating pain into limb and Denies tingling Neuro Denies abnormal gait, Denies dizziness, Denies syncope, Denies numbness, Denies tingling and Denies weakness Endo Denies palpitations Physical Exam Vital Signs: Last Vital Signs Pulse 80 11/11/24 13:45 BP 120/80 11/11/24 13:45 BMI result Body Mass Index 40.2 Const General: comfortable and no acute distress Orientation/consciousness: patient oriented x3 HEENT Other: Unremarkable Head: Yes normal to inspection Neck Neck: Yes normal visual inspection Chest Chest palpation & inspection: normal inspection of the chest Resp Auscultation: clear to auscultation bilaterally Cardio Palpation: normal PMI Heart sounds: S1 normal heart sound present, S2 normal heart sound present, no gallops, no murmurs and no rubs GI Palpation (GI): Soft to palpation Back/Spine/Pelvis Other: unremarkable Skin General skin exam: no rashes or lesions noted Neuro General: patient oriented x3 Extrem General: Yes normal to inspection Psych Mental Status: mental status grossly normal Office Procedures EKG Details: EKG with underlying sinus rhythm at 80/Min; cannot exclude old septal infarct; [place]. [id number], Complete Assessment & Plan Assessment & Plan (1) Precordial chest pain: Code(s): R07.2 - Precordial pain Category: Medical Plan Clinically, no concerning symptoms. Echocardiogram with LVEF of 65-70%. No wall motion abnormalities and otherwise unremarkable. Myocardial perfusion imaging study shows normal perfusion. In the lung CT scan, there is no evidence of coronary artery calcification. Overall, based on findings from above testing, reassurance only. Strongly advised to stop smoking. She will contact us with any ongoing concerns. Discussed. Coding Level of Care Code Est Pt Level 3 (02156) Diagnoses Precordial chest pain R07.2 CPT Codes EKG - CPT: 23367-[id number], Complete ([id number])
== END 2024-11-11 14:02 | disposition home or self-care (01) ==
PROVIDERS: PCP Internal Medicine; Visit Provider Internal Medicine
DX: R07.2 Precordial pain (principal)
CPT/HCPCS: 93010; 99213

== ENCOUNTER → 2024-11-11 13:43 | Outpatient (BNVA) | payer BC, SELFPAY | PROVIDERS: PCP Internal Medicine; Visit Provider Internal Medicine | DX: R07.2 Precordial pain (principal) | CPT/HCPCS: 93005 ==

== ENCOUNTER 2024-12-16 08:15 | Outpatient (REF) | payer BC, SELFPAY ==
--- OUTSIDE RECORDS SUMMARY | 2024-12-16 08:20 | XMS_ITS | Data Portability ---
Author Organization [place] - [facility], Allergy Address [address] [place] [id number] Care Team Providers Care Car Sales Consultant Name Role Phone MELISSA YIN Primary Care Provider [phone] Assessment Encounter Date Assessment Date Assessment LastModified by Organization Details LastModified Time 04/03/2024 04/03/2024 Patient's left otorrhea appears purulent today. The ear was carefully suctioned under the binocular microscope and purulent discharge removed. The tympanostomy tube was removed from the tympanic membrane in the anterior superior quadrant. MRI scan reviewed. There is fluid filling all of the mastoid air cells on the left which is concerning for cerebrospinal fluid, but could also represent serous or infectious fluid. At this point it still not clear whether the left chronic discharge is infectious or due to CSF otorrhea. I am recommending 10 days of topical Ciprodex drops using a pumping action to instill the drops through the perforation. She will maintain dry ear precautions. I will see her back again in 3 weeks or so to reevaluate. We will consider tympanometry and audiometric testing at that time. If the middle ear effusion persist, this will be more likely to represent CSF leak. We did briefly discuss the treatment for CSF otorrhea which would be craniotomy and repair of the floor of the middle cranial fossa. Not available 04/03/2024 15:38:35 04/24/2024 04/24/2024 Left tympanic membrane has healed well following removal of tympanostomy tube. The drum is intact and the middle ear space is aerated. No signs of acute or chronic inflammation in the middle ear or ear canal. She continues to have a sensation of fluid in the ear and still feels like there is fluid sloshing around in there . Audiometric testing today showed no signs of sensorineural or conductive hearing loss in either ear. 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 I suspect that the chronic otorrhea was simply a reaction to the tympanostomy tube. I do not see any signs of middle ear infection or effusion that would explain her persistent pressure and blockage sensation in this ear. [email or web address] Not available 04/24/2024 16:15:00 07/16/2024 07/16/2024 Patient with history of allergy presents for persistent sensation of left ear blockage and fullness. She had extensive workup with Dr. Haskins including a CT and MRI. She had a trial of a tympanostomy tube which was subsequently removed. At her last visit her audiogram was normal and her pressures were normal. She still has a sensation of fluid in her left ear when she lies down. When she sits up she feels better. At times the blockage can cause some discomfort but she really has no pain. Denies eating, drinking or swallowing difficulties she does have a history of bruxism and wears an appliance. She has not been evaluated for PT for her jaw as she has been busy with PT for her knees. Examination today shows no middle ear fluid and her TMJ is nontender. Indirect laryngoscopy is normal. We discussed that most likely she has some level of eustachian tube dysfunction possibly due to her underlying allergy. The fact that her ear has not filled up with fluid argues against any CSF leak. I have suggested consistent use of fluticasone nasal spray and follow-up with Dr. Haskins in 3 months. We also can have her be evaluated in [place] for second opinion if she would like mary Not available 07/16/2024 14:16:06 10/16/2024 10/16/2024 Once again physi katarina exam and audiometric testing and tympanometry of the left ear is normal. Once again, her symptoms appear to be related to inflammation of the jaw joint or spasm of the susan-TMJ musculature, related to her bruxism. I strongly recommended she pursue physical therapy targeted towards the temporomandibular joint. I have given her a referral to a physical therapist who specializes in this area. Once again I do not think that eustachian tube dysfunction or recurrent middle ear effusion is the pathophysiologic cause of her chronic left periauricular symptoms. She may follow-up as needed [email or web address] Not available 10/16/2024 15:11:12 Plan of Treatment Reminders Order Date Submit Date Provider Last Modified By Organization Details Last Modified Time Details Appointments None recorded. Lab None recorded. Referral None recorded. Procedures None recorded. Surgeries None recorded. Imaging None recorded. Medication Orders ciprofloxac in 0.3 %-dexametha sone 0.1 % ear drops,suspe nsion [address] [facility]acy #[id number], [address] [place], [address], 14:07:46 Patient TargetsNo targets recorded. Patient InstructionsNo instructions recorded. Reason for Referral None Reported. Results Created Date Observation Date Name Description Value Unit Range Abnormal Flag Note LastModifiedBy Organization Detail LastModifiedTime 03/27/20 24 03/26/2024 MRI, brain + brain stem, w/wo contr ast [facility] te MRI- [facility] Access ion Number : [id number] Patianitha t Name: Rosamaria Neala moris Record Number : [id number] Date of : 1964 Date of Exam: 2023 Referr ing Physic marco a: Susan Haskins re Ear Nose [address] [place] [address] Exam: MR Brain (C-/C+ ) CPT 18495 Room Descri ption: [facility] Pion 3T MR Brain (C-/C+ ) CPT 60232 INDICA TION / CLINIC AL QUESTI ON: Cerebr jenny l fluid otorrh ea TECHNI QUE: Multip lanar, multis equenc e MRI of the brain was perfor med with and withou t intrav enous contra st. 20 mL Dotare m intrav enous contra st was admini stered . COMPAR ISIS: None. FINDIN GS: IAC: There is no mass or abnorm al enhanc ement in the internal consultant al audito ry canals or cerebe llopon mick angles . Course and calibe r of the 7th and 8th crania l nerves is normal bilate rally. Fluid signal is preser mari in the inner ear struct ures bilate rally. Brains tem demons trates normal signal . BRAIN and EXTRA- AXIAL SPACES : No abnorm al intrac ranial enhanc ement is seen. Manzo l images demons trate no inferi or outpou nelly of tempor al lobe parenc hyma into the left mastoi d air cells to sugges t a cephal ocele. There is also no eviden ce of cephal ocele in the anteri or crania l fossa, with a normal The midlin e struct ures, includ ing sella, corpus callos um, and cranio cervic al juncti on, are unrema rkable . There is no mass effect , midlin e shift, or efface ment of the basal cister ns. On diffus ion weight ed imagin g, there are no region s of restri cted diffus ion to indica te an acute or subacu te infarc t. There is no eviden ce of intrac ranial hemorr angeles on suscep tibili ty sensit sameer sequen ce. Brain parenc hyma demons trates no signif icant signal abnorm ality. Ventri cles, cister ns, and sulci are normal in size and config uratio n, withou t hydroc ephalu s. No abnorm al extra- axial fluid collec tions are seen. Mening eal surfac es are normal . No abnorm al intrac ranial enhanc ement is seen. Major intrac ranial flow voids are presen t. EXTRAC RANIAL SOFT TISSUE S: * T2 hyperi ntense fluid nearly entire ly fills the left mastoi d air cells and left middle ear cavity , and also layers in the left hydraulic jack adjuster al audito ry canal. There is periph eral enhanc ement in the left mastoi d air cells and middle ear cavity . There is no signif icant right mastoi d effusi on. The tegmen mastoi deum appear s thin and dehisc ent is not exclud ed. No enceph alocel e is seen. * Mild to modera te scatte red mucosa l thicke rhianna is seen in the parana monica sinuse s. There is trace layeri ng fluid in the maxill kanwal sinuse s on each side as well as in the right spheno id sinus and nasoph arynx. Orbits are unrema rkable . BONES: A well-c ircums cribed ovoid T2 hyperi ntense , T1 hypoin tense enhanc ing lesion is seen in the left latera l pariet al calvar ium, nonspe cific, possib ly a lipid poor ayden ioma or venous shafer. Visual ized marrow signal is otherw ise preser mari. IMPRES KIARA: 1. Fluid fillin g the left mastoi d air cells, left middle ear cavity , and layeri ng in the left hydraulic jack adjuster al audito ry canal, concer rhianna for CSF otorrh ea. The tegmen mastoi deum is thin; bony integr ity of the tegmen cannot be assess ed on MRI, and CT may be consid ered for identi ficati on of bony defect as clinic ally indica dori. 2. No associ ated enceph alocel e is seen. 3. Scatte red mucosa l thicke rhianna and layeri ng fluid in the parana monica sinuse s. This could reflec t sequel ae of sinusi tis, or could reflec t leaked CSF tracki ng anteri carrol throug h the eustac hian tube. Correl ate with clinic al sympto ms. Electr onical ly Signed By: Angella Lopez MD [email or web address] [facility] ([facility]) [address], [place], [address], 03/31/2024 12:08:08 04/28/20 24 audio gram No observ ation record ed. [email or web address] Not Available 10/2023 16:02:48 06/18/20 24 11/21/2023 imagi ng/di agnos tic resul t No observ ation record ed. [email or web address] Not Available 13:29:07 06/18/20 24 01/16/2024 imagi ng/di agnos tic resul t No observ ation record ed. [email or web address] Not Available 13:29:10 06/18/20 24 07/20/2021 imagi ng/di agnos tic resul t No observ ation record ed. [email or web address] Not Available 13:29:23 06/18/20 24 07/22/2021 imagi ng/di agnos tic resul t No observ ation record ed. [email or web address] Not Available 13:29:34 06/18/20 24 07/20/2021 audio gram No observ ation record ed. [email or web address] Not Available 13:30:01 10/17/20 audio gram No observ ation record ed. [email or web address] Not Available 2023 12:17:12 Result Notes None recorded. Problems Name Problem SNOMED Code Status Onset Date Resolution Date Notes Provider Name and Address Organization Details Recorded Time Deviated nasal septum 332029568 Active 2020 Deviated nasal septum; Note: Date Diagnose d: 1 3:25 PM (J34.2) Not Available [facility] 4 03:06:51 Refracto ry migraine 061846122 Active 2020 Other migraine , intracta ble, without status migraino zoey; Note: Date Diagnose d: 1 3:25 PM (G43.819 ) Not Available [facility] 4 03:06:52 Allergic rhinitis 03197174 Active 2020 Other allergic rhinitis ; Note: Date Diagnose d: 1 3:25 PM (J30.89) Not Available [facility] 4 03:06:50 Abnormal auditory percepti on 82727633 Active 2020 Other abnormal auditory percepti ons, bilatera l; Note: Date Diagnose d: 1 3:13 PM (H93.293 ) Not Available [facility] 4 03:06:52 Bilatera l tinnitus 70965206627 02 Active 2020 Tinnitus , bilatera l; Note: Date Diagnose d: 1 3:13 PM (H93.13) Not Available [facility] 4 03:06:51 Otorrhea of left ear 32611544119 32022 Completed 202310/16/2024 TUCKER HASKINS MD [address] [place] [address], [place], [address] , [place] - [facility] 4 15:09:56 Referred otalgia of left ear 30856734290 05713 Active 2023 TUCKER HASKINS MD [address] [facility],[place] [address], [place], [address] , [facility] - [facility] 4 16:12:54 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 09131065 Active 2023 TUCKER HASKINS MD [address] [facility],[place] [address], [place], [address] , [place] - [facility] 4 16:12:59 Chronic serous otitis media of left ear 597506727 Completed 202310/16/2024 Chronic serous otitis media, left ear; Note: Date Diagnose d: 4 3:59 PM (H65.22) TUCKER HASKINS MD [address] [place] [address],[place] [address], [place], [address] , [facility] - [facility] 4 15:09:48 Tobacco user 773698954 Active 2023 Tobacco use; Note: Date Diagnose d: 4 5:09 PM (Z72.0) Not Available [facility] 4 03:06:52 Abnormal auditory percepti on 05119099 Active 2023 LÁZARO LOCKHART MD [address] [facility],[place] [address], [place], [address] , [facility] - [facility] 4 14:17:27 Problem Notes None recorded. Procedures Surgical History Date Name Laterality Status Provider Name and Address Organization Details Recorded Time 10/16/20 24 Air only Audio (05466) completed CATHY FOX [address] [place] [address],[place] [address], [place], [address], [facility] - [facility] 10/16/2024 14:22:12 10/16/20 24 Tympanometry (61664) completed CATHY FOX [address] [facility],[place] [address], [address], [place] - [facility] 10/16/2024 14:22:09 04/24/20 24 Air only Audio (85794) completed DAVID HERNANDEZ, AUD [address] [facility],[place] [address], [place], [address], [place] - [facility] 04/24/2024 15:50:55 04/24/20 24 Tympanometry (92807) completed DAVID HERNANDEZ AUD [address] [facility],[address], [address], [place] - [facility] 04/24/2024 15:51:00 04/03/20 24 Cerumen removal with microscope left completed TUCKER HASKINS MD [address] [facility],[address], [address], [place] - [facility] 04/03/2024 15:39:41 section completed Cristina Spangler [place] - [facility] 04/03/2024 15:07:34 tonsillectomy completed Cristina Spangler [place] - [facility] 04/03/2024 15:07:53 Imaging Results Imaging Date Name Status LastModified by Organiz ation Details LastModified Time 03/26/2024 MRI, brain + brain stem, w/wo contrast completed [email or web address] [facility] ([facility]) [address] [place], [address], 03/31/2024 12:08:08 04/28/2024 audiogram completed [email or web address] Information n ot available 04/28/2024 16:02:48 11/21/2023 imaging/diagno stic result completed Information not available 06/18/2024 13:29:07 01/16/2024 imaging/diagno stic result completed Information not available 06/18/2024 13:29:10 07/20/2021 imaging/diagno stic result completed Information not available 06/18/2024 13:29:23 07/22/2021 imaging/diagno stic result completed Information not available 06/18/2024 13:29:34 07/20/2021 audiogram completed Information not available 06/18/2024 13:30:01 10/17/2024 audiogram completed BARCODE Information no t available 10/17/2024 12:17:12 Procedure Notes None recorded. Medical Equipment None Reported. Allergies No known drug allergies Medications Name Sig Start Date Stop Date Status Note LastModified by Organization Details LastModified Time celecoxib 200 mg capsule TAKE 1 CAPSULE BY MOUTH EVERY DAY active Not Available Not Available No t Available cyclobenz aprine 10 mg tablet TAKE 1 TABLET BY MOUTH THREE TIMES A DAY FOR 7 DAYS active Not Available Not Available No t Available amoxicill in 500 mg capsule TAKE 4 CAPSULES BY MOUTH 1 HOUR PRIOR TO DENTAL APPT 10/16 completed Not Available Not Available Not Available levothyro xine 137 mcg tablet active Not Available Not Available Not Available atorvasta tin 20 mg tablet active Not Available Not Available Not Available clindamyc in HCl 300 mg capsule TAKE 2 CAPSULES BY MOUTH HALF HOUR PROIR TO DENTAL PROCEDUR E 10/16 completed Not Available Not Available Not Available ibuprofen 800 mg tablet active Not Available Not Available Not Available metoprolo l succinate ER 50 mg tablet,ex tended release 24 hr active Not Available Not Available Not Available ondansetr on HCl 4 mg tablet TAKE 1 TABLET BY MOUTH FOUR TIMES A DAY FOR 7 DAYS active Not Available Not Available No t Available tramadol 50 mg tablet TAKE 1 TABLET BY MOUTH EVERY 6 HOURS AFTER MEALS FOR 7 DAYS active Not Available Not Available No t Available ciclopiro x 8 % topical solution APPLY 1 APPLICAT ION TOPICALL Y BEDTIME FOR 4 WEEKS active Not Available Not Available No t Available ofloxacin 0.3 % ear drops INSTILL 3 DROP INTO LEFT EAR TWICE A DAY X 3 DAYS 04/03 completed Not Available Not Available Not Available aspirin 325 mg tablet,de layed release TAKE 1 TABLET BY MOUTH TWICE A DAY DIRECTED active Not Available Not Available No t Available pantopraz ole 40 mg tablet,de layed release TAKE 1 TABLET BY MOUTH EVERY DAY DIRECTED active Not Available Not Available No t Available docusate sodium 100 mg capsule TAKE 1 CAPSULE BY MOUTH TWICE A DAY DIRECTED FOR 30 DAYS active Not Available Not Available No t Available pramipexo le 0.25 mg tablet 2020 active Medicati on ID: [id number] B rand Name: pramipex ole Send Method: E-Prescr ibed Sub s Allowed: subs OK Speci al Instruct ion: TAKE 1 TABLET BY MOUTH EVERY EVENING Medicati onGeneri cName: pramipex ole Not Available Not Available Not Available amoxicill in 250 mg capsule TAKE 2 CAPSULES BY MOUTH TWICE A DAY FOR 10 DAYS 04/03 completed Not Available Not Available Not Available furosemid e 20 mg tablet 2020 active Medicati on ID: [id number] B rand Name: furosemi de Send Method: E-Prescr ibed Sub s Allowed: subs OK Medic ationGen ericName : furosemi de Not Available Not Available Not Available azelastin e 137 mcg (0.1 %) nasal spray Inhale 2 spray twice a day as directed 2023 active Medicati on ID: [id number] D uration Value: 30 Brand Name: azelasti ne Send Method: E-Prescr ibed Sub s Allowed: subs OK Medic ationGen ericName : azelasti ne Not Available Not Available Not Available methylpre dnisolone 4 mg tablets in a dose pack USE DIRECTED ON PACKAGE INSERT 04/03 completed Not Available Not Available Not Available albuterol sulfate HFA 90 mcg/actua tion aerosol inhaler 04/03 completed Not Available Not Available Not Available morphine 15 mg immediate release tablet TAKE 1 TABLET EVERY 4 HOURS BY MOUTH NEEDED FOR SEVERE PAIN FOR 7 DAYS active Not Available Not Available No t Available cefdinir 300 mg capsule TAKE 1 CAPSULE BY MOUTH TWICE A DAY 04/03 completed Not Available Not Available Not Available oxycodone 5 mg tablet TAKE 1 TABLET EVERY 4 HOURS BY ORAL ROUTE NEEDED FOR 7 DAYS, FOR PAIN. 10/16 completed Not Available Not Available Not Available ciproflox acin 0.3 %-dexamet hasone 0.1 % ear drops,zoey pension INSTILL 4 DROPS TWICE A DAY BY OTIC ROUTE FOR 10 DAYS. 10/16 completed Not Available Not Available Not Available eszopiclo ne 3 mg tablet TAKE 1 TABLET BY MOUTH AT BEDTIME NEEDED FOR INSOMNIA active Not Available Not Available No t Available Nyamyc 100,000 unit/gram topical powder 04/03 completed Not Available Not Available Not Available Symbicort 160 mcg-4.5 mcg/actua tion HFA aerosol inhaler 2020 active Medicati on ID: [id number] B rand Name: Symbicor t Send Method: E-Prescr ibed Sub s Allowed: subs OK Medic ationGen ericName : Symbicor t Not Available Not Available Not Available diclofena c 1 % topical gel APPLY 2 GRAMS TO THE AFFECTED AREA(S) BY TOPICAL ROUTE 4 TIMES PER DAY active Not Available Not Available No t Available cetirizin e 10 mg capsule active Medicati on ID: [id number] B rand Name: cetirizi ne Send Method: E-Prescr ibed Sub s Allowed: subs OK Medic ationGen ericName : cetirizi ne Not Available Not Available Not Available Flonase Allergy Relief 50 mcg/actua tion nasal spray,zoey pension active Medicati on ID: [id number] B rand Name: Flonase Allergy Relief S end Method: E-Prescr ibed Sub s Allowed: subs OK Medic ationGen ericName : Flonase Allergy Relief Not Available Not Available Not Available Vitals Date Recorded Body height Body mass index (BMI) Body weight Provider Name and Address Organization Details Last Updated DateTime 04/24/2024 167.64 cm 37.1 kg/m2 586987.25 g Cristina Spangler [place] - [facility] 04/24/2024 15:24:44 Date Recorded Body height Body mass index (BMI) Body weight Provider Name and Address Organization Details Last Updated DateTime 04/03/2024 167.64 cm 37.1 kg/m2 267226.25 g Cristina Spangler [place] - [facility] 04/03/2024 15:12:35 Date Recorded Body height Body weight Provider Name and Address Organization Details Last Updated DateTime 10/16/2024 167.64 cm 359179.25 g Cristina Spangler [place] - [facility] 10/16/2024 14:07:25 Social History None recorded. Functional Status None recorded. Mental Status None recorded. Family History Nothing Reported. Medical History Condition Response Allergies/Hayfever Y Arthritis Y Thyroid Problems Y Gynecological HistoryNo gynecological history recorded. Obstetrics History GPAL:G 0 P 0 0 0 0 Past Encounters Encounter ID Performer Location Encounter Start Date Encounter Closed Date Diagnosis/Indication Diagnosis SNOMED-CT Code Diagnosis ICD10 Code Diagnosis Note [id number] TUCKER HASKINS MD [facility] [address] [place] [address] 04/03/2024 14:33:30 04/03/2024 15:36:56 Otorrhea of left ear [id number] 550095 H92.12 [id number] TUCKER HASKINS MD [facility] [address] [place] [address] 04/24/2024 14:47:28 04/24/2024 16:12:28 Abnormal auditory perception 94415740 H93.293 Right Ear:Normal hearing.Ty pe A tympanogra m.Left Ear:Normal hearing.Ty pe A tympanogra m, rounded. Referred o talgia of left ear 7643305368 412760 H92.02 The patient complains of persistent chronic periauricu lar {{discomfo rt pressur e sensation* }}. Physical exam reveals no identifiab le source of these symptoms involving the auricle, external auditory canal, or tympanic membrane. Audiometri c testing and tympanomet ry are similarly unrevealin g. Furthermor e, examinatio n was positive for crepitus and tenderness of the {{right le ft* bilate ral}} jaw joint and susan-TMJ musculatur e. The patient's periauricu lar {{discomfo rt pressur e sensation* }} is most likely consistent with intermitte nt inflammati on of the jaw joint or spasm of the surroundin g musculatur e. This is likely exacerbate d by the {{missing teeth dent al clenching and grinding* gum chewing}}. I recommende d the patient use light massage, warm compresses and anti-infla mmatories for symptomati c management . Stressed chewing evenly on both sides of the mouth to keep from overworkin g the jaw joint. Use soft food diet as needed. Jaw Joint Program informatio n sheet was shared. If this treatment plan is ineffectiv e, recommend follow up with their dentist. Referral to physical therapist who specialize s in TMJ disorders {{could also be considered was provided*} }. Arthralgia of temporomandibular joint 90739720 M26.622 [id number] LÁZARO LOCKHART MD [facility] [address] [place] [address] 07/16/2024 13:57:29 07/16/2024 14:19:25 Abnormal auditory perception 31505416 H93.292 Allergic rhinitis 904247 04 J30.9 [id number] TUCKER HASKINS MD [facility] [address] [place] [address] 10/16/2024 13:53:46 10/16/2024 15:10:59 Abnormal auditory perception 60044991 H93.292 Right Ear:Did not test Left Ear:Essent ially normal hearing.Ty pe A tympanogra m, rounded. Referred o talgia of left ear 0851866577 630492 H92.02 Arthralgia of temporomandibular joint 29980935 M26.622 Health Concerns Section Related Observation LastModified by Organization Detai ls LastModified Time None Recorded Concern Status LastModified by Organization Details LastModified Time None Recorded Advance Directives Directive None Recorded Payers Encounter Date Sequence Insurance Name Policy Number Policy Valenzuela Covered Member ID Valenzuela Member ID Guarantor Name 04/03/2024 1 [place] [id number] 3 Reymundo Bartula [id number] BF Rosamaria A Bartula 04/24/2024 1 [place] [id number] 3 Reymundo Bartula [id number] BF Rosamaria A Bartula 07/16/2024 1 [place] [id number] 3 Reymundo Bartula [id number] BF Rosamaria A Bartula 10/16/2024 1 [place] [id number] 3 Reymundo Bartula [id number] BF Rosamaria A Bartula Notes Date Note Type Note Provider Name and Address Organization Details Recorded Time 04/03/2024 text/html Patient with history of chronic left middle ear effusion who underwent left myringotomy with tube and concurrent balloon dilation of the left eustachian tube on 01/16/2024. Patient has had chronic left otorrhea which was concerning for CSF leak. Patient collected some CSF which was equivocal for beta-2 transferrin. I sent her for MRI scan to evaluate for encephalocele which is here for my review today. She continues to have chronic left otorrhea which has been foul-smelling recently. TUCKER HASKINS MD [address] [facility], [place], [id number], [facility] 04/03/2024 15:40:03 04/24/2024 text/html Patient with history of chronic left middle ear effusion who underwent left myringotomy with tube and concurrent balloon dilation of the left eustachian tube on 01/16/2024. Patient has had chronic left otorrhea which was concerning for CSF leak. Patient collected some otorrhea which was equivocal for beta-2 transferrin. I sent her for MRI scan to evaluate for encephalocele which was negative for encephalocele, but the mastoid air cells were filled with fluid. At her last visit I removed the chronically draining tympanostomy tube and placed her on topical Ciprodex drops. TUCKER HASKINS MD [address] [facility], [place], [id number], [facility] 04/24/2024 16:16:13 07/16/2024 text/html Patient with history of allergy presents for persistent sensation of left ear blockage and fullness. She had extensive workup with Dr. Haskins including a CT and MRI. She had a trial of a tympanostomy tube which was subsequently removed. At her last visit her audiogram was normal and her pressures were normal. She still has a sensation of fluid in her left ear when she lies down. When she sits up she feels better. At times the blockage can cause some discomfort but she really has no pain. Denies eating, drinking or swallowing difficulties she does have a history of bruxism and wears an appliance. She has not been evaluated for PT for her jaw as she has been busy with PT for her knees. LÁZARO DENIS MD [address] [facility] [place], [place], [id number], [facility] 07/16/2024 14:18:06 10/16/2024 text/html Patient with history of left chronic middle ear effusion who underwent left myringotomy with tube and concurrent balloon dilation of the left eustachian tube back in December 2023. She had chronic otorrhea likely as a reaction to the tympanostomy tube which resolved following removal of the tube. CT scan and MRI scan showed no signs of encephalocele. 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 Denis back in June which showed normal audiometry, normal tympanometry and no evidence of fluid in the ear on physical exam. She does have history of bruxism and uses an oral appliance. Physical therapy for TMJ was recommended but not carried out. Dr. Denis recommended use of Flonase TUCKER HASKINS MD [address] [place] [address], [id number], [place] - [facility] 10/16/2024 15:11:34 OBGyn Episode No OBEpisode recorded.
[2024-12-16 10:26] LABS: Alanine Aminotransferase 22 U/L (0-31); Anion Gap 14 (12-20); Aspartate Amino Transferase 19 U/L (5-31); Blood Urea Nitrogen 16 mg/dL (9-16); Carbon Dioxide 27 mmol/L (22-29); Chloride 107 mmol/L (96-108); Cholesterol 185 mg/dL (<200); Estimated Glomerular Filt Rate > 60; Glucose Fasting 100 mg/dL (60-99); HDL Cholesterol 53 mg/dL (>40); LDL Cholesterol Calculated 95 mg/dL (<100); Potassium 4.6 mmol/L (3.3-5.1); Sodium 143 mmol/L (135-145); Triglycerides 185 mg/dL (<150)
[2024-12-16 10:56] LABS: Free T4 (Free Thyroxine) 1.21 ng/dL (0.71-1.85); Thyroid Stimulating Hormone 0.51 uIU/mL (0.32-4.0); Vitamin D 25-OH Total 82.1 ng/mL (>30)
[2024-12-16 11:02] LABS: Folate 18.6 ng/mL (> or = 4.0); Vitamin B12 1169 pg/mL (200-900)
== END 2024-12-16 08:16 | disposition home or self-care (01) ==
LOC: HO.HMGCLDS 08:15
PROVIDERS: PCP Internal Medicine; Visit Provider Internal Medicine
DX: I10 Essential (primary) hypertension (principal); E03.9 Hypothyroidism, unspecified; E78.5 Hyperlipidemia, unspecified; G47.00 Insomnia, unspecified; M19.90 Unspecified osteoarthritis, unspecified site; Z78.0 Asymptomatic menopausal state
CPT/HCPCS: 36415; 80048; 80061; 82306; 82607; 82746; 84439; 84443; 84450; 84460

== ENCOUNTER 2024-12-18 09:32 | Outpatient (AMB) | payer BC, SELFPAY ==
[2024-12-18 09:54] VITALS: BP 120/74; PULSE 68; TEMP 36.6; O2SAT 97; BMI 40.3
--- NOTE | 2024-12-18 09:54 | A.OFFPC_ITS ---
Vital Signs 12/18/24 09:54 Height 5 ft 6 in Weight 250 lb BMI 40.3 BP 120/74 Blood Pressure Location Rt brachial Position Sitting Pulse 68 Pulse Source Pulse Oximeter Temp 97.9 F Temp Source Oral Pulse Oximetry (%) 97 Oxygen Delivery Method Room Air Intake Visit Reasons: Annual PE-ok per dr Corey Intake Note: Pt is here today for her PE Allergies hayfever Allergy (Uncoded 12/18/24 10:09) Rash Medication List - Last Reconciled 12/18/24 by Kelsey Keith MD albuterol sulfate 90 mcg/actuation (ProAir HFA) 1 inh inhalation QID PRN atorvastatin 20 mg PO .qod ciclopirox 8% 1 appl topical BEDTIME 4 weeks eszopiclone (Lunesta) 3 mg PO BEDTIME PRN ibuprofen 800 mg PO Q12H PRN levothyroxine 137 mcg PO QAM mecobalamin (vitamin B12) 1,000 mcg PO DAILY metoprolol succinate ER 50 mg PO DAILY omeprazole 20 mg PO DAILY Tobacco use date assessed: 12/18/24 Dental Screening Dental Screen Date: 12/18/24 Did you have a dental visit in the last 12 months?: Yes Did you have a dental problem in the last 6 months where you did not have access to dental care?: Yes Was dental information given to patient?: Patient has dentist HPI Annual PE-ok per dr Corey HPI Details 59-year-old lady with past medical histo ry significant for multinodular thyroid with hypothyroidism, hypertension, mixed dyslipidemia, mild intermittent asthma, stable controlled on present treatment, pulmonary nodule, currently doing yearly lung cancer screenings with low-dose CT scan, osteoarthritis status post right total knee replacement03/2024, here today for physical exam. She is a smoker, not ready to quit smoking. Patient states that she had a screening colonoscopy done at [facility] at age 51, will get copy of results She sees Dr. Leona Aaron for her routine Pap and pelvic exam, last Pap smear was in 2022 per patient, will get copy of results She had a low-dose CT scan for lung cancer screening done 02/2024, due again this May Had latest fasting labs done which showed thyroid levels within normal, but fasting glucose in the prediabetic range at 100 mg/dL, and fasting lipids within normal limits except for elevated triglycerides, vitamin-D level within normal limits but vitami B12 is markedly elevated. Patient takes multivitamins in addition to vitamin B12 supplements Complains of persistent heartburn symptoms despite taking omeprazole. Requesting referral to see Dr. Pisano again who did her upper endoscopy in 2018 showing presence of a gastric polyp which was removed and gastritis FOR[facility]LY [facility], [facility] Medical History (Updated 12/18/24 @ 10:42 by Kelsey Keith MD) Mixed dyslipidemia Chronic GERD Osteoarthritis Osteoarthritis of right knee Smoker unmotivated to quit Intermittent left-sided chest pain Pulmonary nodule Bilateral lower extremity edema Not ready to quit smoking Insomnia Obesity Personal history of nicotine dependence Multinodular thyroid Abnormal nerve conduction studies Peroneal neuropathy Migraine Mild intermittent asthma Dyslipidemia Chronic left mastoiditis Allergic rhinitis Deviated nasal septum Essential hypertension Acquired hypothyroidism Surgical History Hx of foot surgery History of section History of tonsillectomy History of carpal tunnel surgery of right wrist History of esophagogastroduodenoscopy (EGD) (~2017) History of thoracic surgery (~2006) Family History Father Heart disease Emphysema, unspecified Mother HTN (hypertension) Hyperlipidemia Paternal Aunt Breast cancer Paternal Uncle Cancer of prostate Brother No problems noted. Brother No problems noted. Daughter No problems noted. Social History Housing: House Alcohol intake: current Patient Tobacco Use Status: Current everyday Tobacco user Tobacco use type: Cigarette Cigarette Packs Per Day: 1 Years Smoked: 42 (onset 14yo, 1ppd x 42yrs, 40pyh) e-Cigarette/Vaping Use: Never Used Second Hand Smoke Exposure: No Current occupational status: employed Current occupation: assisting cook Current occupational exposures/hazards: No Cognitive needs: No Hearing needs: No Vision needs: No Female Reproductive History Menstrual Menopause type: natural Other: sees Dr. Leona Aaron in [facility] Questionnaire PHQ-9 Over the last 2 weeks, how often have you been bothered by any of the following problems? 1. Little interest or pleasure in doing things: not at all 2. Feeling down, depressed, or hopeless: not at all 3. Trouble falling or staying asleep, or sleeping too much: not at all 4. Feeling tired or having little energy: not at all 5. Poor appetite or overeating: not at all 6. Feeling bad about yourself - or that you are a failure or have let yourself or your family down: not at all 7. Trouble concentrating on things, such as reading the newspaper or watching television: not at all 8. Moving or speaking so slowly that other people could have noticed. Or the opposite - being so fidgety or restless that you have been moving around a lot more than usual: not at all 9. Thoughts that you would be better off or of hurting yourself in some way: not at all Total score: 0 Depression Screening Interpretation: Negative Depression Screening Done: Yes 82410 - PHQ-9 Billing: Yes Source: Developed by Drs. Flynn Gotti, Samantha Jolley, Sebastián Childress and colleagues, with an educational collette from [employer]. Thrive Questionnaire Date Thrive assessed: 12/18/24 I am a: Patient What is your living situation today?: I have a steady place to live Within the past 12 months, did the food you bought not last and you didn't have the money to get more?: Never true Within the past 12 months, did you worry whether your food would run out before you got money to buy more?: Never true Do you have trouble paying for medicines?: No Do you have trouble getting transportation to medical appointments?: No Do you have trouble paying your heating and electricity bill?: No Do you have trouble taking care of your child, family member or friend?: No Do you have trouble with day-to-day activities such as bathing, preparing meals, shopping, managing finances, etc.?: No Are you currently unemployed and looking for a job?: No Are you interested in more education?: No Please select the resources that you would like help with: None Currently or been in a relationship where the following occur: I choose not to answer THRIVE Score: 0 AUDIT C Alcohol Use Questionnaire (AUDIT-C) 1. How often do you have a drink containing alcohol?: 2-3 times a week 2. How many drinks containing alcohol do you have on a typical day when you are drinking?: 3 or 4 3. How often do you have six or more drinks on one occasion?: Monthly Total Score: 6 ALESSIO-7 AMB Questionnaire ALESSIO-7 Date ALESSIO - 7 assessed: 12/18/24 Feeling nervous, anxious, or on edge: 0 = Not at all Not being able to stop or control worryin = Not at all Worrying too much about different things: 0 = Not at all Trouble relaxin = Not at all Being so restless that it is hard to sit still: 0 = Not at all Becoming easily annoyed or irritable: 0 = Not at all Feeling afraid as if something awful might happen: 0 = Not at all Total ALESSIO-7 score (0-4 normal; 5-9 mild; 10-14 moderate; 15-21 severe): 0 Source: Developed by Drs. Flynn Gotti, Samantha Jolley, Sebastián Childress and colleagues, with an educational collette from [employer]. ALESSIO-7 Assessment Billing ALESSIO-7 Assessment Tool: ALESSIO-7 Assessment 42916 Review of Systems Const Denies weakness Eyes Details: Goes to [facility] for her routine eye exam Reports no additional complaints ENT Denies dizziness Card Reports chest pain, Denies chest pain with activity, Denies syncope, Denies rapid heart rate, Denies pedal edema, Denies edema, Denies leg edema, Denies lightheadedness, Denies palpitations, Denies dyspnea, Denies dyspnea on exertion and Denies orthopnea Resp Denies cough, Denies dyspnea and Denies dyspnea on exertion GI Denies hematochezia and Denies change in stool character Details: She sees Dr. Leona Aaron for her routine Pap and pelvic exam, copy of last Pap results requested Reports no additional complaints Musc Denies abnormal gait, Denies muscle cramps, Denies muscle weakness, Denies numbness, Denies radiating pain into limb and Denies tingling Skin/Breast Denies breast pain, Denies breast mass and Denies rash Neuro Denies abnormal gait, Denies dizziness, Denies syncope, Denies numbness, Denies tingling and Denies weakness Psych Reports no additional complaints Endo Denies palpitations Earl/Lymph Reports no additional complaints Aller/Immun Reports no additional complaints Physical exam (Primary Care) Vital Signs: Last Vital Signs Temp 97.9 F 12/18/24 09:54 Pulse 68 12/18/24 09:54 BP 120/74 12/18/24 09:54 Pulse Ox 97 12/18/24 09:54 Oxygen Delivery Method Room Air 12/18/24 09:54 BMI result Body Mass Index 40.3 BMI Assessment/Plan discussion: High BMI High, discussed plan: lifestyle, weight reduction, dietary and physical activity Tobacco/Smoking Status: Tobacco use Status Tobacco use date assessed 12/18/24 12/18/24 10:00 Patient Tobacco Use Status Current everyday Tobacco 12/18/24 09:54 Tobacco use type Cigarette 12/18/24 09:54 e-Cigarette/Vaping Use Never Used 12/18/24 09:54 Are you ready to quit: No Tobacco cessation counseling provided: Yes PHQ-9: PHQ-9 Score PHQ-9: Total score 0 12/18/24 10:00 Depression Screening Interpretation: Negative Thrive Assessment: Date of Thrive Assessment Date Thrive assessed 12/18/24 12/18/24 10:00 Currently or been in a relationship where the following occur: I choose not to answer Advance Care Planning discussion: Completed/Scanned Date of discussion: 12/18/24 Who was present: Patient Forms completed: Health Care Proxy Time spent: 16-45 minutes Actual minutes spent: 2 Const General: comfortable and no acute distress Nutritional Appearance: obese morbidly obese Orientation/consciousness: patient oriented x3 HENMT General nose exam: Normal external nose present and No nasal discharge present Mouth: Normal oral and palatal mucosa present and moist mucous membranes Eyes General: appearance normal, both eyes and all related structures Conjunctivae: conjunctivae normal Sclerae: sclerae normal Pupils: Equal, round and reactive pupils present EOM: EOMs intact bilaterally Neck Neck: Yes full ROM, Yes no lymphadenopathy and Yes supple Chest Chest palpation & inspection: normal inspection of the chest Breast/axilla palpation: normal palpation of the breasts Resp Effort & Inspection: normal respiratory effort and able to speak in complete sentences Auscultation: clear to auscultation bilaterally Cardio Rate: regular rate Rhythm: regular rhythm Heart sounds: S1 normal heart sound present and S2 normal heart sound present GI Inspection: Yes normal to inspection Palpation (GI): Soft to palpation, nontender, no guarding and no masses General: Yes no CVA tenderness Back/Spine/Pelvis Back: no CVA tenderness and No back tenderness Skin Other: Thick discolored toenails bilateral Neuro General: patient oriented x3, gait normal, tone normal, Normal light touch and pain sensation and no focal motor deficits Cranial nerves: Yes Equal, round and reactive pupils present Extrem General: Yes full ROM, Yes no joint enlargement and Yes normal gait Psych Appearance: grossly normal and well kempt Mental Status: mental status grossly normal Speech and movement: Normal speech and movement present Affect: normal affect Thought process: Normal thought process present Results Reviewed Results Reviewed: regige: Rosamaria Austin Age/Sex: 59/F : 1965 Unit#: [id number] Attend Dr: Kelsey Keith MD Re12/16/24 Status: DEP REF Location: [facility] Disch: SPEC : [id number] SANTANA: 12/16/24 STATUS: COMP REQ : [id number] RECD: 12/16/[address]: Kelsey Keith MD COMP: 12/16/24 ENTERED: 12/16/[address] [facility] [address]: ORDERED: Met Prof Fast, AST, ALT, Lipid Panel, Vitamin D 25-OH, Free T4, TSH Test Result Flag Reference Sodium 143 135-145 mmol/L Potassium 4.6 3.3-5.1 mmol/L CL 107 96-108 mmol/L CO2 27 22-29 mmol/L Gap 14 12-20 BUN 16 9-16 mg/dL Creat 0.79 0.5-1.4 mg/dL eGFR > 60 Chronic Kidney Disease: Estimated GFR < 60 mL/min/1.73m2 Severe Kidney Disease: Estimated GFR < 15 mL/min/1.73m2 FBS 100 H 60-99 mg/dL A fasting glucose from 100-125 mg/dl is considered imp aired (pre-diabetes). CA 10.0 8.4-10.2 mg/dL AST (GOT) 19 5-31 U/L ALT (GPT) 22 0-31 U/L Triglyceride 185 H <150 mg/dL Desirable Triglyceride: less than 150 mg/dL Borderline High Triglyceride 150-199 mg/dL High Triglyceride: 200-499 mg/dL Very High Triglyceride: greater than or equal to 5OO mg/dL Cholesterol 185 <200 mg/dL Desirable Cholesterol: less than 200 mg/dL Borderline High Cholesterol: 200-239 mg/dL High Cholesterol: greater than 239 mg/dL LDL Calculated 95 <100 mg/dL Desirable LDL: less than 100 mg/dL Near Optimal/Above Optimal LDL: 110-129 mg/dL Borderline High LDL: 130-159 mg/dL High LDL: 160-189 mg/dL Very High LDL: greater than or equal to 190 mg/dL HDL 53 >40 mg/dL Desirable HDL: greater than 40 mg/dL Note: This HDL assay may give artificially low results in patients with liver disease. Vit D 25-OH Tot 82.1 >30 ng/mL Health Based Reference Values* < 20 ng/mL Deficient 20-30 ng/mL Insufficient > 30 ng/mL Sufficient *Mena FARNSWORTH. N Engl J Med. 2007;357:266-280 Care must be taken in interpreting Vitamin D results from different laboratories and methodologies. Published data demonstrated that results from patients undergoing hemodialysis may show a negative bias when tested with various automated 25-OH vitamin D assays when compared to LC-MS/MS. When testing samples from patients whose predominant form of Vitamin D is Vitamin D2, such as patients receiving Vitamin D2 supplementation, results that are subtherapeutic should be confirmed with another method such as LC-MS/MS. Free T4 1.21 0.71-1.85 ng/dL TSH 3rd Gen. 0.51 0.32-4.0 uIU/mL TSH 3rd Generation ([facility]) Coding Level of Care Code Est Pt Prev Care 40-64y(59977) Diagnoses Chronic GERD K21.9 Smoker unmotivated to quit F17.200 Primary insomnia F51.01 Insomnia type: primary Snoring R06.83 Multinodular thyroid E04.2 Mild intermittent asthma without complication J45.20 Asthma complication type: uncomplicated Essential hypertension I10 Acquired hypothyroidism E03.9 Advanced directives, counseling/discussion Z71.89 Annual visit for general adult medical examination with abnormal findings Z00.01 Mixed dyslipidemia E78.2 Pulmonary nodule R91.1 Additional Codes PHQ-9 - 83503 - PHQ-9 Billing: Yes ([id number]) ALESSIO-7 Assessment Billing - ALESSIO-7 Assessment Tool: ALESSIO-7 Assessment 18952 ([id number]) Vital Signs *Quality* - Advance Care Planning discussion: Completed/Scanned ([id number]) Vital Signs *Quality* - Time spent: 16-45 minutes ([id number]) Assessment & Plan Assessment & Plan (1) Chronic GERD: Code(s): K21.9 - Gastro-esophageal reflux disease without esophagitis Category: Medical Plan: Not much relief afforded with omeprazole, referred to GI Clinic for further evaluation management, may need another upper endoscopy, last 1 done was in [address] Pisano which showed presence of a gastric polyp and gastritis (2) Smoker unmotivated to quit: Code(s): F17.200 - Nicotine dependence, unspecified, uncomplicated Category: Social Hx Plan: I Patient strongly advised to stop smoking, as smoking damages blood vessels, degenerative of joints and spine, damage to lungs and heart., predisposes to developing certain cancers like lung, breast, bladder, colon. Recommended to try decreasing cigarette use by 1-2 cigarettes a day. Advised to monitor what triggers are for smoking so that this can be discussed on the next office visit. We can discuss different options to quit smoking when ready. Reminded to get her yearly lung cancer screening with a low-dose CT scan, due again in February this year (3) Insomnia: Code(s): G47.00 - Insomnia, unspecified Category: Medical Qualifiers: Insomnia type: primary Qualified Code(s): F51.01 - Primary insomnia Plan: Continue eszopiclone, advised to get sleep study to check for obstructive sleep apnea but patient declined (4) Snoring: Comment: (Obese, Smoker, Over 50yo, HTN, Admits to snoring - High Risk for DENISA) Code(s): R06.83 - Snoring Category: Medical Plan: Advised to get sleep study test done, but patient declined (5) Multinodular thyroid: Code(s): E04.2 - Nontoxic multinodular goiter Category: Medical Plan: Recent thyroid levels are within normal limits, continued on levothyroxine at 137 mcg daily in a.m. (6) Mild intermittent asthma: Code(s): J45.20 - Mild intermittent asthma, uncomplicated Category: Medical Qualifiers: Asthma complication type: uncomplicated Qualified Code(s): J45.20 - Mild intermittent asthma, uncomplicated Plan: Currently using ProAir inhaler as needed, rarely needing to use. Strongly advised to quit smoking (7) Essential hypertension: Code(s): I10 - Essential (primary) hypertension Category: Medical Plan: Blood pressure at goal of less than 130/80. Continue with current medication. Reinforced importance of following a low sodium diet, getting regular exercise, and lowering stress levels. (8) Acquired hypothyroidism: Code(s): E03.9 - Hypothyroidism, unspecified Category: Medical Plan: Thyroid levels are within normal limits, continue with current dose of levothyroxine recheck levels again in 3 (9) Advanced directives, counseling/discussion: Code(s): Z71.89 - Other specified counseling Plan: Initiated the conversation about Advanced Directives. Advanced Directives help patients prepare for current and future decisions about their medical treatment and place of care. Discussed with patient that it is a process where a patients current condition and prognosis are reviewed, their wishes for information regarding their illness are elicited, and likely medical dilemmas are presented and options discussed. Healthcare proxy form completed today The form can be am ended as needed, reviewed yearly and make changes as needed (10) Annual visit for general adult medical examination with abnormal findings: Code(s): Z00.01 - Encounter for general adult medical examination with abnormal findings Plan: Recent fasting lab results reviewed with patient which showed elevated triglycerides and vitamin B12 levels as well as fasting glucose in the prediabetic range.. Continue regular dental visit every 6 months and regular eye exams, at least every 2 years. Take adequate calcium in diet and vitamin-D 3 at 2000 IU per cap once a day, in addition to weight-bearing exercises to help maintain good muscle tone and weight control. Stop vitamin B12 supplements. Continue with regular breast exams monthly and up-to-date with screening mammogram. Patient states that she had a colonoscopy done at [facility] when she was 51 years old, copy of results requested patient sees Leona Aaron MD for her routine Pap and pelvic exam, copy of last Pap smear requested what does it mean to be in a for closure (11) Mixed dyslipidemia: Code(s): E78.2 - Mixed hyperlipidemia Category: Medical Plan: Reviewed recent fasting lipid profile with patient with levels within normal limits except for elevated triglycerides. Continue atorvastatin 20 mg every other day , in addition to adherence to low-cholesterol diet and regular exercise, at least 30 minutes 3 to 4 times a week. Advised patient to make healthy food choices, eat more fruits, vegetables, whole grains, wild caught fish and low-fat dairy. Limit amount of meat and fried or fatty food products, as well as processed foods and fast foods. Follow-up scheduled with repeat fasting lipid panel in 3 months. (12) Pulmonary nodule: Code(s): R91.1 - Solitary pulmonary nodule Category: Medical Plan: Due again for her LDCT scan this february 2025 at [facility] [place] Orders: Orders Vitamin B12 and Folate 02/26/25 E03.9 - Hypothyroidism, unspecified, E04.2 - Nontoxic multinodular goiter, E78.2 - Mixed hyperlipidemia, I10 - Essential (primary) hypertension, K21.9 - Gastro-esophageal reflux disease without esophagitis, R91.1 - Solitary pulmonary nodule, Z78.0 - Asymptomatic menopausal state Lipid Panel 02/26/25 E03.9 - Hypothyroidism, unspecified, E04.2 - Nontoxic multinodular goiter, E78.2 - Mixed hyperlipidemia, I10 - Essential (primary) hypertension, K21.9 - Gastro-esophageal reflux disease without esophagitis, R91.1 - Solitary pulmonary nodule, Z78.0 - Asymptomatic menopausal state Hemoglobin A1c 02/26/25 E03.9 - Hypothyroidism, unspecified, E04.2 - Nontoxic multinodular goiter, E78.2 - Mixed hyperlipidemia, I10 - Essential (primary) hyp ertension, K21.9 - Gastro-esophageal reflux disease without esophagitis, R91.1 - Solitary pulmonary nodule, Z78.0 - Asymptomatic menopausal state Vitamin D 25-OH Total 02/26/25 E03.9 - Hypothyroidism, unspecified, E04.2 - Nontoxic multinodular goiter, E78.2 - Mixed hyperlipidemia, I10 - Essential (primary) hypertension, K21.9 - Gastro-esophageal reflux disease without es ophagitis, R91.1 - Solitary pulmonary nodule, Z78.0 - Asymptomatic menopausal state Thyroid Stimulating Hormone 02/26/25 E03.9 - Hypothyroidism, unspecified, E04.2 - Nontoxic multinodular goiter, E78.2 - Mixed hyperlipidemia, I10 - Essential (primary) hypertension, K21.9 - Gastro-esophageal reflux disease without esophagitis, R91.1 - Solitary pulmonary nodule, Z78.0 - Asymptomatic menopausal state Free T4 (Free Thyroxine) 02/26/25 E03.9 - Hypothyroidism, unspecified, E04.2 - Nontoxic multinodular goiter, E78.2 - Mixed hyperlipidemia, I10 - Essential (primary) hypertension, K21.9 - Gastro-esophageal reflux disease without esophagitis, R91.1 - Solitary pulmonary nodule, Z78.0 - Asymptomatic menopausal state Basic Metabolic Panel Fasting 02/26/25 E03.9 - Hypothyroidism, unspecified, E04.2 - Nontoxic multinodular goiter, E78.2 - Mixed hyperlipidemia, I10 - Essential (primary) hypertension, K21.9 - Gastro-esophageal reflux disease without esophagitis, R91.1 - Solitary pulmonary nodule, Z78.0 - Asymptomatic menopausal state Aspartate Amino Transferase 02/26/25 E03.9 - Hypothyroidism, unspecified, E04.2 - Nontoxic multinodular goiter, E78.2 - Mixed hyperlipidemia, I10 - Essential (primary) hypertension, K21.9 - Gastro-esophageal reflux disease without esophagitis, R91.1 - Solitary pulmonary nodule, Z78.0 - Asymptomatic menopausal state Alanine Aminotransferase 02/26/25 E03.9 - Hypothyroidism, unspecified, E04.2 - Nontoxic multinodular goiter, E78.2 - Mixed hyperlipidemia, I10 - Essential (primary) hypertension, K21.9 - Gastro-esophageal reflux disease without esophagitis, R91.1 - Solitary pulmonary nodule, Z78.0 - Asymptomatic menopausal state Referrals Gastroenterology Referral K21.9 - Gastro-esophageal reflux disease without esophagitis
--- OUTSIDE RECORDS SUMMARY | 2024-12-18 10:19 | XMS_ITS | Data Portability ---
Author Organization [place] - [facility], Allergy Address [address] [place] [address] Care Team Providers Care Machines Technician Name Role Phone MELISSA YIN Primary Care Provider [phone] Assessment Encounter Date Assessment Date Assessment LastModified [...] the floor of the middle cranial fossa. [email or web address] Not available 04/03/2024 15:38:35 04/24/2024 04/24/2024 Left [...] pressure and blockage sensation in this ear. [email or web address] Not available 04/24/2024 16:15:00 07/16/2024 07/16/2024 Patient [...] also can have her be evaluated in [place] for second opinion if she would like [...] periauricular symptoms. She may follow-up as needed Not available 10/16/2024 15:11:12 Plan of Treatment Reminders Order Date Submit Date Provider Last Modified By Organization Details Last Modified Time Details Appointments None recorded. Lab None recorded. Referral None recorded. Procedures None recorded. Surgeries None recorded. Imaging None recorded. Medication Orders ciprofloxac in 0.3 %-dexametha sone 0.1 % ear drops,suspe nsion 2023 024 [facility] #[id number], [address] [place], [address], 14:07:46 Patient TargetsNo targets recorded. Patient InstructionsNo instructions recorded. Reason for Referral None Reported. Results Created Date Observation Date Name Description Value Unit Range Abnormal Flag Note LastModifiedBy Organization Detail LastModifiedTime 03/27/20 24 03/26/2024 MRI, brain + brain stem, w/wo contr [facility]- [facility] Access ion Number : [id number] Patianitha t Name: Rosamaria Neala moris Record Number : [id number] Date of : 1964 Date of Exam: 2023 Referr ing Physic marco a: Susan Haskins re Ear Nose [address] [place] [address] Exam: MR Brain (C-/C+ ) CPT 44559 Room Descri ption: [facility] Pion 3T MR Brain (C-/C+ ) CPT 92668 INDICA TION / CLINIC AL QUESTI ON: [...] or abnorm al enhanc ement in the finance intern al audito ry canals or cerebe llopon [...] , and also layers in the left court officer al audito ry canal. There is periph [...] , and layeri ng in the left court officer al audito ry canal, concer rhianna for [...] onical ly Signed By: Angella Lopez MD [email or web address] [facility] ([facility]) [address], [place], [address], 03/31/2024 12:08:08 04/28/20 24 audio gram No observ ation record ed. [email or web address] Not Available 10/2023 16:02:48 06/18/20 24 11/21/2023 [...] Organization Details Recorded Time Deviated nasal septum 147053366 Active 2020 Deviated nasal septum; Note: Date Diagnose d: 1 3:25 PM (J34.2) Not Available [facility] 4 03:06:51 Refracto ry migraine 179296151 Active 2020 Other migraine , intracta ble, without status migraino zoey; Note: Date Diagnose d: 1 3:25 PM (G43.819 ) Not Available [facility] 4 03:06:52 Allergic rhinitis 43782106 Active 2020 Other allergic rhinitis ; Note: Date Diagnose d: 1 3:25 PM (J30.89) Not Available [facility] 4 03:06:50 Abnormal auditory percepti on 07984131 Active 2020 Other abnormal auditory percepti ons, bilatera l; Note: Date Diagnose d: 1 3:13 PM (H93.293 ) Not Available [facility] 4 03:06:52 Bilatera l tinnitus 90272404278 02 Active 2020 Tinnitus , bilatera l; Note: Date Diagnose d: 1 3:13 PM (H93.13) Not Available [facility] 4 03:06:51 Otorrhea of left ear 66490208894 20219 Completed 202310/16/2024 TUCKER HASKINS MD [address] [place] [address], [place], [address] , [place] - [facility] 4 15:09:56 Referred otalgia of left ear 07745830682 34120 Active 2023 TUCKER HASKINS MD [address] [facility],[place] [address], [place], [address] , [facility] - [facility] 4 16:12:54 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 46204279 Active 2023 TUCKER HASKINS MD [address] [facility],[place] [address], [place], [address] , [place] - [facility] 4 16:12:59 Chronic serous otitis media of left ear 477351838 Completed 202310/16/2024 Chronic serous otitis media, left ear; Note: Date Diagnose d: 4 3:59 PM (H65.22) TUCKER HASKINS MD [address] [place] [address],[place] [address], [place], [address] , [facility] - [facility] 4 15:09:48 Tobacco user 306149303 Active 2023 Tobacco use; Note: Date Diagnose d: 4 5:09 PM (Z72.0) Not Available [facility] 4 03:06:52 Abnormal auditory percepti on 98938161 Active 2023 LÁZARO LOCKHART MD [address] [facility],[place] [address], [place], [address] , [facility] - [facility] 4 14:17:27 Problem Notes None recorded. Procedures Surgical History Date Name Laterality Status Provider Name and Address Organization Details Recorded Time 10/16/20 24 Air only Audio (93580) completed CATHY FOX [address] [place] [address],[place] [address], [place], [address], [facility] - [facility] 10/16/2024 14:22:12 10/16/20 24 Tympanometry (58148) completed CATHY FOX [address] [facility],[place] [address], [place], [address], [place] [facility] [place] 10/16/2024 14:22:09 04/24/20 24 Air only Audio (35428) completed DAVID HERNANDEZ, AUD [address] [facility],[place] [address], [place], [address], [place] [facility] [place] 04/24/2024 15:50:55 04/24/20 24 Tympanometry (75534) completed DAVID HERNANDEZ AUD [address] [facility],[address], [address], [place] - [facility] 04/24/2024 15:51:00 04/03/20 24 Cerumen removal with microscope left completed TUCKER HASKINS MD [address] [facility],[address], [address], [place] - [facility] [place] 04/03/2024 15:39:41 section completed Cristina Spangler [place] - [facility] [place] 04/03/2024 15:07:34 tonsillectomy completed Cristina Spangler [place] - [facility] [place] 04/03/2024 15:07:53 Imaging Results Imaging Date Name Status LastModified by Organiz ation Details LastModified Time 03/26/2024 MRI, brain + brain stem, w/wo contrast completed [email or web address] [facility] ([facility]) [address] [place], [address], 03/31/2024 12:08:08 04/28/2024 audiogram completed [email or web address] Information n ot available 04/28/2024 16:02:48 11/21/2023 [...] mg tablet 2020 active Medicati on ID: 958309 B rand Name: pramipex ole Send Method: [...] mg tablet 2020 active Medicati on ID: 644822 B rand Name: furosemi de Send Method: E-Prescr ibed Sub s Allowed: subs OK Medic ationGen ericName : furosemi de Not Available Not Available Not Available azelastin e 137 mcg (0.1 %) nasal spray Inhale 2 spray twice a day as directed 2023 active Medicati on ID: [id number] D uration Value: 30 Brand Name: azelasti [...] aerosol inhaler 2020 active Medicati on ID: 855974 B rand Name: Symbicor t Send Method: E-Prescr ibed Sub s Allowed: subs OK Medic ationGen ericName : Symbicor t Not Available Not Available Not Available diclofena c 1 % topical gel APPLY 2 GRAMS TO THE AFFECTED AREA(S) BY TOPICAL ROUTE 4 TIMES PER DAY active Not Available Not Available No t Available cetirizin e 10 mg capsule active Medicati on ID: 976293 B rand Name: cetirizi ne Send Method: E-Prescr ibed Sub s Allowed: subs OK Medic ationGen ericName : cetirizi ne Not Available Not Available Not Available Flonase Allergy Relief 50 mcg/actua tion nasal spray,zoey pension active Medicati on ID: 461026 B rand Name: Flonase Allergy Relief S end Method: E-Prescr ibed Sub s Allowed: subs OK Medic ationGen ericName : Flonase Allergy Relief Not Available Not Available Not Available Vitals Date Recorded Body height Body mass index (BMI) Body weight Provider Name and Address Organization Details Last Updated DateTime 04/24/2024 167.64 cm 37.1 kg/m2 196748.25 g Cristina Spangler [place] - [facility] 04/24/2024 15:24:44 Date Recorded Body height Body mass index (BMI) Body weight Provider Name and Address Organization Details Last Updated DateTime 04/03/2024 167.64 cm 37.1 kg/m2 120745.25 g Cristina Spangler [place] - [facility] 04/03/2024 15:12:35 Date Recorded Body height Body weight Provider Name and Address Organization Details Last Updated DateTime 10/16/2024 167.64 cm 136615.25 g Cristina Spangler [place] [facility] 10/16/2024 14:07:25 Social History None recorded. Functional [...] Note [id number] TUCKER HASKINS MD [facility] [address] [place] [address] 04/03/2024 14:33:30 04/03/2024 15:36:56 Otorrhea of left ear 7045101206 119746 H92.12 [id number] TUCKER HASKINS MD [facility] [address] [place] [address] 04/24/2024 14:47:28 04/24/2024 16:12:28 Abnormal auditory perception 79790863 H93.293 Right Ear:Normal hearing.Ty pe A tympanogra m.Left Ear:Normal hearing.Ty pe A tympanogra m, rounded. Referred o talgia of left ear 9657599128 961321 H92.02 The patient complains of persistent chronic [...] was provided*} }. Arthralgia of temporomandibular joint 99215967 M26.622 [id number] LÁZARO LOCKHART MD [facility] [address] [place] [address] 07/16/2024 13:57:29 07/16/2024 14:19:25 Abnormal auditory perception 66196489 H93.292 Allergic rhinitis 110246 04 J30.9 [id number] TUCKER HASKINS MD [facility] [address] [place] [address] 10/16/2024 13:53:46 10/16/2024 15:10:59 Abnormal auditory perception 40688118 H93.292 Right Ear:Did not test Left Ear:Essent ially normal hearing.Ty pe A tympanogra m, rounded. Referred o talgia of left ear 2924214282 068909 H92.02 Arthralgia of temporomandibular joint 17049567 M26.622 Health Concerns Section Related Observation LastModified by Organization Detai ls LastModified Time None Recorded Concern Status LastModified by Organization Details LastModified Time None Recorded Advance Directives Directive None Recorded Payers Encounter Date Sequence Insurance Name Policy Number Policy Valenzuela Covered Member ID Valenzuela Member ID Guarantor Name 04/03/2024 1 [place] [employer] [place] [id number] 3 Reymundo Bartula [id number] BF Rosamaria A Bartula 04/24/2024 1 [place] [id number] 3 Reymundo Bartula [id number] BF Rosamaria A Bartula 07/16/2024 1 [place] [place] [id number] 3 Reymundo Bartula [id number] BF Rosamaria A Bartula 10/16/2024 1 [place] [employer] [place] [id number] 3 Reymundo Bartula [id number] BF Rosamaria A Bartula Notes Date Note [...] been foul-smelling recently. TUCKER HASKINS MD [address] [facility], [place], [address], [facility] 04/03/2024 15:40:03 04/24/2024 text/html Patient with history [...] topical Ciprodex drops. TUCKER HASKINS MD [address] [facility],[address], [place], [address], [facility] 04/24/2024 16:16:13 07/16/2024 text/html Patient with history [...] for her knees. LÁZARO DENIS MD [address] [facility], [place], [address], [facility] 07/16/2024 14:18:06 10/16/2024 text/html Patient with history [...] recommended use of Flonase TUCKER HASKINS MD [address] [place] [address], [address], [place] - [facility] 10/16/2024 15:11:34 OBGyn Episode No OBEpisode recorded.
== END 2024-12-18 10:41 | disposition home or self-care (01) ==
PROVIDERS: PCP Internal Medicine; Visit Provider Internal Medicine
DX: Z00.01 Encounter for general adult medical examination with abnormal findings (principal); K21.9 Gastro-esophageal reflux disease without esophagitis; F17.200 Nicotine dependence, unspecified, uncomplicated; F51.01 Primary insomnia; R06.83 Snoring; E04.2 Nontoxic multinodular goiter; J45.20 Mild intermittent asthma, uncomplicated; I10 Essential (primary) hypertension; E03.9 Hypothyroidism, unspecified; Z71.89 Other specified counseling; E78.2 Mixed hyperlipidemia; R91.1 Solitary pulmonary nodule

== ENCOUNTER → 2024-12-18 09:32 | Outpatient (BNVA) | payer BC, SELFPAY | PROVIDERS: PCP Internal Medicine; Visit Provider Internal Medicine | DX: Z00.01 Encounter for general adult medical examination with abnormal findings (principal); K21.9 Gastro-esophageal reflux disease without esophagitis; F51.01 Primary insomnia; R06.83 Snoring; E04.2 Nontoxic multinodular goiter; J45.20 Mild intermittent asthma, uncomplicated; I10 Essential (primary) hypertension; E03.9 Hypothyroidism, unspecified; E78.2 Mixed hyperlipidemia; R91.1 Solitary pulmonary nodule; F17.210 Nicotine dependence, cigarettes, uncomplicated; Z71.89 Other specified counseling; Z79.899 Other long term (current) drug therapy | CPT/HCPCS: 96127 ==

== ENCOUNTER 2025-03-07 09:18 | Outpatient (REF) | payer BC, SELFPAY ==
--- OUTSIDE RECORDS SUMMARY | 2025-03-07 09:21 | XMS_ITS | Data Portability ---
Author Organization [place] - [facility], Allergy Address [address] [place] [phone] Care Team Providers Care [employer] Groover Name Role Phone MELISSA YIN Primary Care Provider Assessment Encounter Date Assessment Date Assessment LastModified [...] the floor of the middle cranial fossa. [email or web address] Not available 04/03/2024 15:38:35 04/24/2024 04/24/2024 Left [...] pressure and blockage sensation in this ear. Not available 04/24/2024 16:15:00 07/16/2024 07/16/2024 Patient [...] also can have her be evaluated in [place] for second opinion if she would like [...] periauricular symptoms. She may follow-up as needed [email or web address] Not available 10/16/2024 15:11:12 Plan of Treatment Reminders Order Date Submit Date Provider Last Modified By Organization Details Last Modified Time Details Appointments None recorded. Lab None recorded. Referral None recorded. Procedures None recorded. Surgeries None recorded. Imaging None recorded. Medication Orders ciprofloxac in 0.3 %-dexametha sone 0.1 % ear drops,suspe nsion [address] [facility] #[id number], [address] [place], [address], 14:07:46 Patient TargetsNo targets recorded. Patient InstructionsNo instructions recorded. Reason for Referral None Reported. Results Created Date Observation Date Name Description Value Unit Range Abnormal Flag Note LastModifiedBy Organization Detail LastModifiedTime 03/27/20 24 03/26/2024 MRI, brain + brain stem, w/wo contr ast [facility]- [facility] Access ion Number : [id number] Patianitha t Name: Rosamaria Neala moris Record Number : [id number] Date of : 1964 Date of Exam: 2023 Referr ing Physic marco a: Susan Haskins re Ear Nose [address] [facility] [place] [address] Exam: MR Brain (C-/C+ ) CPT 71831 Room Descri ption: [facility] Pion 3T MR Brain (C-/C+ ) CPT 08403 INDICA TION / CLINIC AL QUESTI ON: [...] or abnorm al enhanc ement in the marketing pr intern al audito ry canals or cerebe [...] , and also layers in the left car hiker al audito ry canal. There is periph [...] , and layeri ng in the left car hiker al audito ry canal, concer rhianna for CSF otorrh ea. The tegmen mastoi deum is thin; bony integr ity of the tegmen cannot be assess ed on MRI, and CT may be consid ered for identi ficati on of bony defect as clinic ally indica dori. 2. No associ ated enceph alocel e is seen. 3. Scatte red mucosa l thicke rihanna and layeri ng fluid in the parana monica sinuse s. This could reflec t sequel ae of sinusi tis, or could reflec t leaked CSF tracki ng anteri carrol throug h the eustac hian tube. Correl ate with clinic al sympto ms. Electr onical ly Signed By: Angella Lopez MD [id number] [facility]) [address], [place], [address], 03/31/2024 12:08:08 04/28/20 24 audio gram No observ ation record ed. [email or web address] Not Available 10/2023 16:02:48 06/18/20 24 11/21/2023 [...] Organization Details Recorded Time Deviated nasal septum 567050272 Active 2020 Deviated nasal septum; Note: Date Diagnose d: 1 3:25 PM (J34.2) Not Available [facility] 4 03:06:51 Refracto ry migraine 387300086 Active 2020 Other migraine , intracta ble, without status migraino zoey; Note: Date Diagnose d: 1 3:25 PM (G43.819 ) Not Available [facility] 4 03:06:52 Allergic rhinitis 38419191 Active 2020 Other allergic rhinitis ; Note: Date Diagnose d: 1 3:25 PM (J30.89) Not Available [facility] 4 03:06:50 Abnormal auditory percepti on 17814059 Active 2020 Other abnormal auditory percepti ons, bilatera l; Note: Date Diagnose d: 1 3:13 PM (H93.293 ) Not Available [facility] 4 03:06:52 Bilatera l tinnitus 71481033130 02 Active 2020 Tinnitus , bilatera l; Note: Date Diagnose d: 1 3:13 PM (H93.13) Not Available [facility] 4 03:06:51 Otorrhea of left ear 04543509399 81644 Completed 202310/16/2024 TUCKER HASKINS MD [address] [place] [address], [place], [address] , [facility] - [facility] 4 15:09:56 Referred otalgia of left ear 93894752372 46464 Active 2023 TUCKER HASKINS MD [address] [facility],[place] [address], [place], [address] , [facility] - [facility] 4 16:12:54 Pain of temporom andibula r joint 28724669 Active 2023 TUCKER HASKINS MD [address] [facility],[place] [address], [place], [address] , [facility] - [facility] [place] 4 16:12:59 Chronic serous otitis media of left ear 431774541 Completed 202310/16/2024 Chronic serous otitis media, left ear; Note: Date Diagnose d: 4 3:59 PM (H65.22) TUCKER HASKINS MD [address] [place] [address],[place] [address], [place], [address] , [facility] - [facility] 4 15:09:48 Tobacco user 155599039 Active 2023 Tobacco use; Note: Date Diagnose d: 4 5:09 PM (Z72.0) Not Available [facility] 4 03:06:52 Abnormal auditory percepti on 00486274 Active 2023 LÁZARO LOCKHART MD [address] [facility],[place] [address], [place], [address] , [facility] - [facility] 4 14:17:27 Problem Notes None recorded. Procedures Surgical History Date Name Laterality Status Provider Name and Address Organization Details Recorded Time 10/16/20 24 Air only Audio - 48056 completed CATHY FOX [address] [place] [address],[place] [address], [place], [address], [facility] - [facility] 10/16/2024 14:22:12 10/16/20 24 Tympanometry - 13239 completed CATHY FOX [address] [place] [address],[address], [address], [place] - [facility] [place] 10/16/2024 14:22:09 04/24/20 24 Air only Audio - 46899 completed DAVID HERNANDEZ, [facility] [address] [facility],[address], [address], [place] - [facility] [place] 04/24/2024 15:50:55 04/24/20 24 Tympanometry - 76838 completed DAVID HERNANDEZ [facility] [address] [facility],[address], [address], [place] - [facility] [place] 04/24/2024 15:51:00 04/03/20 24 Cerumen removal with microscope left completed TUCKER HASKINS MD [address] [facility],[address], [address], [place] - [facility] [place] 04/03/2024 15:39:41 section completed Cristina Spangler [place] - [facility] [place] 04/03/2024 15:07:34 tonsillectomy completed Cristina Spangler [place] [facility] [place] 04/03/2024 15:07:53 Imaging Results Imaging Date Name Status LastModified by Organiz ation Details LastModified Time 03/26/2024 MRI, brain + brain stem, w/wo contrast completed [email or web address] [facility] ([facility]) [address] [place], [address], 03/31/2024 12:08:08 04/28/2024 audiogram completed [email or web address] Information n ot available 04/28/2024 16:02:48 11/21/2023 [...] mg tablet 2020 active Medicati on ID: 578582 B rand Name: pramipex ole Send Method: [...] mg tablet 2020 active Medicati on ID: 396334 B rand Name: furosemi de Send Method: E-Prescr ibed Sub s Allowed: subs OK Medic ationGen ericName : furosemi de Not Available Not Available Not Available azelastin e 137 mcg (0.1 %) nasal spray Inhale 2 spray twice a day as directed 2023 active Medicati on ID: [id number] D uration Value: 30 Brand Name: azelasti [...] aerosol inhaler 2020 active Medicati on ID: 956060 B rand Name: Symbicor t Send Method: E-Prescr ibed Sub s Allowed: subs OK Medic ationGen ericName : Symbicor t Not Available Not Available Not Available diclofena c 1 % topical gel APPLY 2 GRAMS TO THE AFFECTED AREA(S) BY TOPICAL ROUTE 4 TIMES PER DAY active Not Available Not Available No t Available cetirizin e 10 mg capsule active Medicati on ID: 496187 B rand Name: cetirizi ne Send Method: E-Prescr ibed Sub s Allowed: subs OK Medic ationGen ericName : cetirizi ne Not Available Not Available Not Available Flonase Allergy Relief 50 mcg/actua tion nasal spray,zoey pension active Medicati on ID: 804942 B rand Name: Flonase Allergy Relief S end Method: E-Prescr ibed Sub s Allowed: subs OK Medic ationGen ericName : Flonase Allergy Relief Not Available Not Available Not Available Vitals Date Recorded Body height Body mass index (BMI) Body weight Provider Name and Address Organization Details Last Updated DateTime 04/24/2024 167.64 cm 37.1 kg/m2 414740.25 g Cristina Spangler [place] - [facility] 04/24/2024 15:24:44 Date Recorded Body height Body mass index (BMI) Body weight Provider Name and Address Organization Details Last Updated DateTime 04/03/2024 167.64 cm 37.1 kg/m2 428164.25 g Cristina Spangler [place] - [facility] 04/03/2024 15:12:35 Date Recorded Body height Body weight Provider Name and Address Organization Details Last Updated DateTime 10/16/2024 167.64 cm 989370.25 g Cristina Spangler [place] [facility] 10/16/2024 14:07:25 Social History None recorded. Functional Status None recorded. Mental Status None recorded. Family History Nothing Reported. Medical History Condition Response Arthritis Y Allergies/Hayfever Y Thyroid Problems Y Gynecological HistoryNo gynecological history recorded. Obstetrics History GPAL:G 0 P 0 0 0 0 Past Encounters Encounter ID Performer Location Encounter Start Date Encounter Closed Date Diagnosis/Indication Diagnosis SNOMED-CT Code Diagnosis ICD10 Code Diagnosis Note [id number] TUCKER HASKINS MD [facility] [address] [place] [address] 04/03/2024 14:33:30 04/03/2024 15:36:56 Otorrhea of left ear [id number] 642596 H92.12 [id number] TUCKER HASKINS MD [facility] [address] [place] [address] 04/24/2024 14:47:28 04/24/2024 16:12:28 Abnormal auditory perception 69528028 H93.293 Right Ear:Normal hearing.Ty pe A tympanogra m.Left Ear:Normal hearing.Ty pe A tympanogra m, rounded. Referred o talgia of left ear 3180236114 785965 H92.02 The patient complains of persistent chronic [...] {{could also be considered was provided*} }. Pain of temporomandibular joint 53198476 M26.622 [id number] LÁZARO LOCKHART MD [facility] [address] [place] [address] 07/16/2024 13:57:29 07/16/2024 14:19:25 Abnormal auditory perception 47739742 H93.292 Allergic rhinitis 886920 04 J30.9 [id number] TUCKER HASKINS MD [facility] [address] [place] [address] 10/16/2024 13:53:46 10/16/2024 15:10:59 Abnormal auditory perception 66170634 H93.292 Right Ear:Did not test Left Ear:Essent ially normal hearing.Ty pe A tympanogra m, rounded. Referred o talgia of left ear 8913449087 498816 H92.02 Pain of temporomandibular joint 21548350 M26.622 Health Concerns Section Related Observation LastModified by Organization Detai ls LastModified Time None Recorded Concern Status LastModified by Organization Details LastModified Time None Recorded Advance Directives Directive None Recorded Payers Insurance Date Sequence Insurance Name Policy Number Policy Valenzuela Covered Member ID Valenzuela Member ID Guarantor Name 10/16/2024 1 [employer]: FRANKIE FLORES (PPO) [id number] 3 Arnoldo Austin [id number] BF Rosamaria Austin Notes Date Note Type Note Provider Name [...] has been foul-smelling recently. TUCKER HASKINS MD [address] [place] [address], [address], [facility] - [facility] 04/03/2024 15:40:03 04/24/2024 text/html Patient with [...] Ciprodex drops. TUCKER HASKINS MD [address] [facility],[address], [address], [facility] 04/24/2024 16:16:13 07/16/2024 text/html Patient with [...] for her knees. LÁZARO DENIS MD [address] [facility],[address], [address], [facility] 07/16/2024 14:18:06 10/16/2024 text/html Patient with [...] recommended use of Flonase TUCKER HASKINS MD [address] [place] [address], [place], [address], [facility] - [facility] 10/16/2024 15:11:34 OBGyn Episode No OBEpisode recorded.
[2025-03-07 11:54] LABS: Estimated Average Glucose 117 mg/dL; Hemoglobin A1C 147.1043 umol/L; Hemoglobin A1c % 5.7 % (<6.0); Total Hemoglobin (HGBA1C) 3839.0994 umol/L
[2025-03-07 12:03] LABS: Alanine Aminotransferase 21 U/L (0-31); Anion Gap 13 (12-20); Aspartate Amino Transferase 24 U/L (5-31); Blood Urea Nitrogen 14 mg/dL (9-16); Calcium 9.6 mg/dL (8.4-10.2); Carbon Dioxide 26 mmol/L (22-29); Chloride 108 mmol/L (96-108); Cholesterol 193 mg/dL (<200); Estimated Glomerular Filt Rate > 60; Glucose Fasting 100 mg/dL (60-99); HDL Cholesterol 48 mg/dL (>40); LDL Cholesterol Calculated 113 mg/dL (<100); Potassium 4.6 mmol/L (3.3-5.1); Sodium 142 mmol/L (135-145); Triglycerides 164 mg/dL (<150)
[2025-03-07 12:22] LABS: Free T4 (Free Thyroxine) 1.08 ng/dL (0.71-1.85); Thyroid Stimulating Hormone 0.38 uIU/mL (0.32-4.0); Vitamin D 25-OH Total 72.4 ng/mL (>30)
[2025-03-07 12:28] LABS: Folate 16.8 ng/mL (> or = 4.0); Vitamin B12 761 pg/mL (200-900)
== END 2025-03-07 09:19 | disposition home or self-care (01) ==
LOC: HO.HMGCLDS 09:18
PROVIDERS: PCP Internal Medicine; Visit Provider Internal Medicine
DX: E78.2 Mixed hyperlipidemia (principal); K21.9 Gastro-esophageal reflux disease without esophagitis; R91.1 Solitary pulmonary nodule; Z78.0 Asymptomatic menopausal state; E04.2 Nontoxic multinodular goiter; I10 Essential (primary) hypertension; E03.9 Hypothyroidism, unspecified; Z13.1 Encounter for screening for diabetes mellitus
CPT/HCPCS: 36415; 80048; 80061; 82306; 82607; 82746; 83036; 84439; 84443; 84450; 84460

== ENCOUNTER 2025-03-09 15:01 | Outpatient (REF) | payer BC, SELFPAY ==
--- NOTE | ~2025-03-09 | CT_ITS ---
EXAMINATION: CT LOW-DOSE SCREENING CHEST WITHOUT CONTRAST CLINICAL INFORMATION: 59-year-old female, current smoker, 44 pack years, lung cancer screening. COMPARISON: 03/06/2024. TECHNIQUE: Multidetector volumetric CT imaging of the chest is performed on a Siemens SOMATOM Definition scanner without contrast using low dose technique. Additional 2D coronal and sagittal reformatted images and axial 3D maximum intensity projection (MIP) images are generated on the CT workstation. This CT examination was performed using dose optimization techniques as appropriate, variously including the following: *Automated exposure control *Adjustment of mA and/or kV according to patient size (this includes techniques or standardized protocols for targeted exams where dose is matched to indication/reason for exam; i.e. extremities or head) *Use of iterative reconstruction technique FINDINGS: PULMONARY NODULES: 4 mm nodule anterior right upper lobe (series 5, image 72), unchanged. 5 mm nodule lateral right lower lobe (series 5, image 80), unchanged. 3 mm nodule lateral right lower lobe (series 5, image 90), unchanged. 4 mm nodule medial left lower lobe (series 5 image 99), unchanged. No new or enlarging pulmonary nodule. LUNGS: Lungs are well expanded. There is mild centrilobular emphysema. There is mild small airway thickening, similar. No abnormal consolidations or groundglass opacities. No effusion or pneumothorax. The central airways appear normal. MEDIASTINUM: Normal appearance. CORONARY ARTERY CALCIFICATION: Mild coronary artery calcification. THYROID GLAND: Unremarkable to the extent seen. CARDIOVASCULAR STRUCTURES: Aortic and heart size normal. No pericardial effusion. CHEST WALL/AXILLA: Unremarkable. UPPER ABDOMEN: Included portions of the solid organs in the upper abdomen unremarkable on noncontrast imaging. OSSEOUS STRUCTURES: No suspicious focal findings. CT/CT lung screening IMPRESSION: 1. A few stable scattered pulmonary nodules measuring up to 5 mm without change. No new or enlarging pulmonary nodule. 2. Mild emphysema. No active lung disease. 3. Minimal small airway thickening, suggestive of chronic bronchitis. ASSESSMENT: 1. Lung-RADS Category 2: Benign appearance or behavior of nodules. 2. Lung-RADS Category S: None. RECOMMENDATION: Continued routine annual low-dose CT lung screening in 1 year is recommended. An order for CT CHEST LOW DOSE CANCER SCREENING ([id number]) can be placed. Electronically signed by: Stanton Shah MD 03/09/2025 03:47 PM EDT
--- OUTSIDE RECORDS SUMMARY | 2025-03-09 15:04 | XMS_ITS | Data Portability ---
Author Organization [place] [facility], Allergy Address [address] [place] [id number] Care Team Providers Care Mud Jack Nozzleman Name Role Phone MELISSA YIN Primary Care Provider [phone] Assessment Encounter Date Assessment Date Assessment LastModified [...] the floor of the middle cranial fossa. [email or web address] Not available 04/03/2024 15:38:35 04/24/2024 04/24/2024 Left [...] pressure and blockage sensation in this ear. [email or web address] Not available 04/24/2024 16:15:00 07/16/2024 07/16/2024 Patient [...] also can have her be evaluated in [place] for second opinion if she would like [...] periauricular symptoms. She may follow-up as needed [email or web address] Not available 10/16/2024 15:11:12 Plan of Treatment Reminders Order Date Submit Date Provider Last Modified By Organization Details Last Modified Time Details Appointments None recorded. Lab None recorded. Referral None recorded. Procedures None recorded. Surgeries None recorded. Imaging None recorded. Medication Orders ciprofloxac in 0.3 %-dexametha sone 0.1 % ear drops,suspe nsion [address] [facility]acy #[id number], [address] [place], [address], 14:07:46 Patient TargetsNo targets recorded. Patient InstructionsNo instructions recorded. Reason for Referral None Reported. Results Created Date Observation Date Name Description Value Unit Range Abnormal Flag Note LastModifiedBy Organization Detail LastModifiedTime 03/27/20 24 03/26/2024 MRI, brain + brain stem, w/wo contr [facility]- [facility] Access ion Number : [id number] Patianitha t Name: Rosamaria Neala moris Record Number : [id number] Date of : 1964 Date of Exam: 2023 Referr ing Physic marco a: Susan Haskins re Ear Nose [address] [place] [address] Exam: MR Brain (C-/C+ ) CPT 70458 Room Descri ption: [facility] Pion 3T MR Brain (C-/C+ ) CPT 69943 INDICA TION / CLINIC AL QUESTI ON: [...] or abnorm al enhanc ement in the international recruiter al audito ry canals or cerebe llopon [...] , and also layers in the left fleet administrator al audito ry canal. There is periph [...] , and layeri ng in the left fleet administrator al audito ry canal, concer rhianna for [...] onical ly Signed By: Angella Lopez MD [email or web address] [facility] [address], [place], [address], 03/31/2024 12:08:08 04/28/20 24 audio gram No observ ation record ed. [email or web address] Not Available 10/2023 16:02:48 06/18/20 24 11/21/2023 [...] Organization Details Recorded Time Deviated nasal septum 047545817 Active 2020 Deviated nasal septum; Note: Date Diagnose d: 1 3:25 PM (J34.2) Not Available [facility] 4 03:06:51 Refracto ry migraine 259027239 Active 2020 Other migraine , intracta ble, without status migraino zoey; Note: Date Diagnose d: 1 3:25 PM (G43.819 ) Not Available [facility] 4 03:06:52 Allergic rhinitis 17916897 Active 2020 Other allergic rhinitis ; Note: Date Diagnose d: 1 3:25 PM (J30.89) Not Available [facility] 4 03:06:50 Abnormal auditory percepti on 72771914 Active 2020 Other abnormal auditory percepti ons, bilatera l; Note: Date Diagnose d: 1 3:13 PM (H93.293 ) Not Available [facility] 4 03:06:52 Bilatera l tinnitus 97225858741 02 Active 2020 Tinnitus , bilatera l; Note: Date Diagnose d: 1 3:13 PM (H93.13) Not Available [facility] 4 03:06:51 Otorrhea of left ear 41949213886 97415 Completed 202310/16/2024 TUCKER HASKINS MD [address] [place] [address], [place], [address] , [facility] - [facility] 4 15:09:56 Referred otalgia of left ear 91542534395 02736 Active 2023 TUCKER HASKINS MD [address] [facility],[place] [address], [place], [address] , [facility] - [facility] 4 16:12:54 Pain of temporom andibula r joint 09309149 Active 2023 TUCKER HASKINS MD [address] [facility],[place] [address], [place], [address] , [facility] - [facility] [place] 4 16:12:59 Chronic serous otitis media of left ear 241317277 Completed 202310/16/2024 Chronic serous otitis media, left ear; Note: Date Diagnose d: 4 3:59 PM (H65.22) TUCKER HASKINS MD [address] [place] [address],[place] [address], [place], [address] , [facility] - [facility] 4 15:09:48 Tobacco user 699684344 Active 2023 Tobacco use; Note: Date Diagnose d: 4 5:09 PM (Z72.0) Not Available [facility] 4 03:06:52 Abnormal auditory percepti on 36096728 Active 2023 LÁZARO LOCKHART MD [address] [facility],[place] [address], [place], [address] , [facility] - [facility] 4 14:17:27 Problem Notes None recorded. Procedures Surgical History Date Name Laterality Status Provider Name and Address Organization Details Recorded Time 10/16/20 24 Air only Audio - 05862 completed CATHY FOX [address] [place] [address],[place] [address], [place], [address], [facility] - [facility] 10/16/2024 14:22:12 10/16/20 24 Tympanometry - 27541 completed CATHY FOX [address] [place] [address],[address], [address], [place] - [facility] [place] 10/16/2024 14:22:09 04/24/20 24 Air only Audio - 80663 completed DAVID HERNANDEZ, [facility] [address] [facility],[address], [address], [place] - [facility] [place] 04/24/2024 15:50:55 04/24/20 24 Tympanometry - 45157 completed DAVID HERNANDEZ [facility] [address] [facility],[address], [address], [place] - [facility] [place] 04/24/2024 15:51:00 04/03/20 24 Cerumen removal with microscope left completed TUCKER HASKINS MD [address] [facility],[address], [address], [place] - [facility] [place] 04/03/2024 15:39:41 section completed Cristina Spangler [place] - [facility] [place] 04/03/2024 15:07:34 tonsillectomy completed Cristina Spangler [place] [facility] [place] 04/03/2024 15:07:53 Imaging Results Imaging Date Name Status LastModified by Organiz ation Details LastModified Time 03/26/2024 MRI, brain + brain stem, w/wo contrast completed [email or web address] [facility] [address] [place], [address], 03/31/2024 12:08:08 04/28/2024 audiogram completed [email or web address] Information n ot available 04/28/2024 16:02:48 11/21/2023 [...] mg tablet 2020 active Medicati on ID: [id number] B rand Name: pramipex ole Send Method: [...] mg tablet 2020 active Medicati on ID: 821362 B rand Name: furosemi de Send Method: E-Prescr ibed Sub s Allowed: subs OK Medic ationGen ericName : furosemi de Not Available Not Available Not Available azelastin e 137 mcg (0.1 %) nasal spray Inhale 2 spray twice a day as directed 2023 active Medicati on ID: [id number] D uration Value: 30 Brand Name: azelasti [...] aerosol inhaler 2020 active Medicati on ID: [id number] B rand Name: Symbicor t Send Method: E-Prescr ibed Sub s Allowed: subs OK Medic ationGen ericName : Symbicor t Not Available Not Available Not Available diclofena c 1 % topical gel APPLY 2 GRAMS TO THE AFFECTED AREA(S) BY TOPICAL ROUTE 4 TIMES PER DAY active Not Available Not Available No t Available cetirizin e 10 mg capsule active Medicati on ID: 964757 B rand Name: cetirizi ne Send Method: E-Prescr ibed Sub s Allowed: subs OK Medic ationGen ericName : cetirizi ne Not Available Not Available Not Available Flonase Allergy Relief 50 mcg/actua tion nasal spray,zoey pension active Medicati on ID: 988372 B rand Name: Flonase Allergy Relief S end Method: E-Prescr ibed Sub s Allowed: subs OK Medic ationGen ericName : Flonase Allergy Relief Not Available Not Available Not Available Vitals Date Recorded Body height Body mass index (BMI) Body weight Provider Name and Address Organization Details Last Updated DateTime 04/24/2024 167.64 cm 37.1 kg/m2 544841.25 g Cristina Spangler [place] - [facility] 04/24/2024 15:24:44 Date Recorded Body height Body mass index (BMI) Body weight Provider Name and Address Organization Details Last Updated DateTime 04/03/2024 167.64 cm 37.1 kg/m2 200720.25 g Cristina Spangler [place] - [facility] 04/03/2024 15:12:35 Date Recorded Body height Body weight Provider Name and Address Organization Details Last Updated DateTime 10/16/2024 167.64 cm 624745.25 g Cristina Spangler [place] - [facility] 10/16/2024 14:07:25 Social History None recorded. [...] Note [id number] TUCKER HASKINS MD [facility] [address] [facility] [place] [address] 04/03/2024 14:33:30 04/03/2024 15:36:56 Otorrhea of left ear [id number] 811331 H92.12 [id number] TUCKER HASKINS MD [facility] [address] [facility] [place] [address] 04/24/2024 14:47:28 04/24/2024 16:12:28 Abnormal auditory perception 28004209 H93.293 Right Ear:Normal hearing.Ty pe A tympanogra m.Left Ear:Normal hearing.Ty pe A tympanogra m, rounded. Referred o talgia of left ear 8025128854 139712 H92.02 The patient complains of persistent chronic [...] was provided*} }. Pain of temporomandibular joint 43724513 M26.622 [id number] LÁZARO LOCKHART MD [facility] [address] [place] [address] 07/16/2024 13:57:29 07/16/2024 14:19:25 Abnormal auditory perception 18917549 H93.292 Allergic rhinitis 885252 04 J30.9 [id number] TUCKER HASKINS MD [facility] [address] [place] [address] 10/16/2024 13:53:46 10/16/2024 15:10:59 Abnormal auditory perception 84081621 H93.292 Right Ear:Did not test Left Ear:Essent ially normal hearing.Ty pe A tympanogra m, rounded. Referred o talgia of left ear 5604093770 488931 H92.02 Pain of temporomandibular joint 15575551 M26.622 Health Concerns Section Related Observation LastModified by Organization Detai ls LastModified Time None Recorded Concern Status LastModified by Organization Details LastModified Time None Recorded Advance Directives Directive None Recorded Payers Insurance Date Sequence Insurance Name Policy Number Policy Valenzuela Covered Member ID Valenzuela Member ID Guarantor Name 10/16/2024 1 [employer]: FRANKIE FLORES (PPO) [id number] Arnoldo Austin [id number] BF Rosamaria Austin Notes Date Note Type [...] has been foul-smelling recently. TUCKER HASKINS MD [address] [place] [address], [phone], [facility] - [facility] 04/03/2024 15:40:03 04/24/2024 text/html Patient with [...] topical Ciprodex drops. TUCKER HASKINS MD [address] [facility],[address], [address], [facility] 04/24/2024 16:16:13 07/16/2024 text/html Patient with [...] for her knees. LÁZARO DENIS MD [address] [facility],[address], [address], [facility] 07/16/2024 14:18:06 10/16/2024 text/html Patient with [...] recommended use of Flonase TUCKER HASKINS MD [address] [place] [address], [place], [address], [facility] - [facility] 10/16/2024 15:11:34 OBGyn Episode No OBEpisode recorded.
== END 2025-03-09 15:02 | disposition home or self-care (01) ==
LOC: HO.CT 15:01
PROVIDERS: PCP Internal Medicine; Visit Provider Physician Assistant Medical
DX: Z12.2 Encounter for screening for malignant neoplasm of respiratory organs (principal); F17.210 Nicotine dependence, cigarettes, uncomplicated
CPT/HCPCS: 71271

== ENCOUNTER → 2025-03-09 15:02 | Outpatient (BNV) | payer BC, SELFPAY | PROVIDERS: PCP Internal Medicine; Visit Provider Radiology Diagnostic Radiology | DX: F17.210 Nicotine dependence, cigarettes, uncomplicated (principal) | CPT/HCPCS: 71271 ==

== ENCOUNTER 2025-03-26 15:16 | Outpatient (AMB) | payer BC, SELFPAY ==
--- OUTSIDE RECORDS SUMMARY | 2025-03-26 15:19 | XMS_ITS | Data Portability ---
Author Organization [place] - [facility], Allergy Address [address] [place] [address] Care Team Providers Care Container Washer Name Role Phone MELISSA YIN Primary Care Provider [phone] Assessment Encounter Date Assessment Date Assessment LastModified [...] the floor of the middle cranial fossa. [email or web address] Not available 04/03/2024 15:38:35 04/24/2024 04/24/2024 Left [...] pressure and blockage sensation in this ear. [email or web address] Not available 04/24/2024 16:15:00 07/16/2024 07/16/2024 Patient [...] 0.1 % ear drops,suspe nsion 2023 024 [facility]/Pharmacy #[id number], [address] [place], [address], 14:07:46 Patient TargetsNo targets recorded. Patient InstructionsNo instructions recorded. Reason for Referral None Reported. Results Created Date Observation Date Name Description Value Unit Range Abnormal Flag Note LastModifiedBy Organization Detail LastModifiedTime 03/27/20 24 03/26/2024 MRI, brain + brain stem, w/wo contr ast [facility]- [facility] Access ion Number : [id number] Patianitha t Name: Rosamaria Neala moris Record Number : [id number] Date of : 1964 Date of Exam: 2023 Referr ing Physic marco a: Susan Haskins re Ear Nose [address] [facility] [place] [address] Exam: MR Brain (C-/C+ ) CPT 11845 Room Descri ption: [facility] Pion 3T MR Brain (C-/C+ ) CPT 00534 INDICA TION / CLINIC AL QUESTI ON: [...] or abnorm al enhanc ement in the creative intern al audito ry canals or cerebe [...] , and also layers in the left real estate manager al audito ry canal. There is periph [...] , and layeri ng in the left real estate manager al audito ry canal, concer rhianna for [...] onical ly Signed By: Angella Lopez MD [email or web address] [facility] ([facility]) [address], [place], [address], 03/31/2024 12:08:08 04/28/20 24 audio gram No observ ation record ed. [email or web address] Not Available 10/2023 16:02:48 06/18/20 24 11/21/2023 [...] Organization Details Recorded Time Deviated nasal septum 342907774 Active 2020 Deviated nasal septum; Note: Date Diagnose d: 1 3:25 PM (J34.2) Not Available [facility] 4 03:06:51 Refracto ry migraine 058695014 Active 2020 Other migraine , intracta ble, without status migraino zoey; Note: Date Diagnose d: 1 3:25 PM (G43.819 ) Not Available [facility] 4 03:06:52 Allergic rhinitis 81635448 Active 2020 Other allergic rhinitis ; Note: Date Diagnose d: 1 3:25 PM (J30.89) Not Available [facility] 4 03:06:50 Abnormal auditory percepti on 52635305 Active 2020 Other abnormal auditory percepti ons, bilatera l; Note: Date Diagnose d: 1 3:13 PM (H93.293 ) Not Available [facility] 4 03:06:52 Bilatera l tinnitus 96165139966 02 Active 2020 Tinnitus , bilatera l; Note: Date Diagnose d: 1 3:13 PM (H93.13) Not Available [facility] 4 03:06:51 Otorrhea of left ear 71063273037 33321 Completed 202310/16/2024 TUCKER HASKINS MD [address] [place] [address], [place], [address] , [facility] - [facility] 4 15:09:56 Referred otalgia of left ear 34125747833 34487 Active 2023 TUCKER HASKINS MD [address] [facility],[place] [address], [place], [address] , [facility] - [facility] 4 16:12:54 Pain of temporom andibula r joint 14313024 Active 2023 TUCKER HASKINS MD [address] [facility],[place] [address], [place], [address] , [facility] - [facility] 4 16:12:59 Chronic serous otitis media of left ear 612452993 Completed 202310/16/2024 Chronic serous otitis media, left ear; Note: Date Diagnose d: 4 3:59 PM (H65.22) TUCKER HASKINS MD [address] [place] [address],[place] [address], [place], [address] , [facility] - [facility] 4 15:09:48 Tobacco user 082074854 Active 2023 Tobacco use; Note: Date Diagnose d: 4 5:09 PM (Z72.0) Not Available [facility] 4 03:06:52 Abnormal auditory percepti on 10470243 Active 2023 LÁZARO LOCKHART MD [address] [facility],[place] [address], [place], [address] , [facility] - [facility] 4 14:17:27 Problem Notes None recorded. Procedures Surgical History Date Name Laterality Status Provider Name and Address Organization Details Recorded Time 10/16/20 24 Air only Audio - 07450 completed CATHY FOX [address] [place] [address],[place] [address], [place], [address], [facility] - [facility] 10/16/2024 14:22:12 10/16/20 24 Tympanometry - 45285 completed CATHY FOX [address] [place] [address],[address], [address], [place] - [facility] 10/16/2024 14:22:09 04/24/20 24 Air only Audio - 66286 completed DAVID HERNANDEZ, [facility] [address] [facility],[address], [address], [place] - [facility] 04/24/2024 15:50:55 04/24/20 24 Tympanometry - 40935 completed DAVID HERNANDEZ [facility] [address] [facility],[address], [address], [place] - [facility] 04/24/2024 15:51:00 04/03/20 24 Cerumen removal with microscope left completed TUCKER HASKINS MD [address] [facility],[address], [address], [place] - [facility] 04/03/2024 15:39:41 section completed Cristina Spangler [place] - [facility] 04/03/2024 15:07:34 tonsillectomy completed Cristina Spangler [place] - [facility] 04/03/2024 15:07:53 Imaging Results None recorded. Procedure Notes None recorded. Medical Equipment None [...] mg tablet 2020 active Medicati on ID: 184085 B rand Name: pramipex ole Send Method: [...] mg tablet 2020 active Medicati on ID: 364682 B rand Name: furosemi de Send Method: E-Prescr ibed Sub s Allowed: subs OK Medic ationGen ericName : furosemi de Not Available Not Available Not Available azelastin e 137 mcg (0.1 %) nasal spray Inhale 2 spray twice a day as directed 2023 active Medicati on ID: [id number] D uration Value: 30 Brand Name: azelasti [...] aerosol inhaler 2020 active Medicati on ID: 666265 B rand Name: Symbicor t Send Method: E-Prescr ibed Sub s Allowed: subs OK Medic ationGen ericName : Symbicor t Not Available Not Available Not Available diclofena c 1 % topical gel APPLY 2 GRAMS TO THE AFFECTED AREA(S) BY TOPICAL ROUTE 4 TIMES PER DAY active Not Available Not Available No t Available cetirizin e 10 mg capsule active Medicati on ID: 761058 B rand Name: cetirizi ne Send Method: E-Prescr ibed Sub s Allowed: subs OK Medic ationGen ericName : cetirizi ne Not Available Not Available Not Available Flonase Allergy Relief 50 mcg/actua tion nasal spray,zoey pension active Medicati on ID: 468499 B rand Name: Flonase Allergy Relief S end Method: E-Prescr ibed Sub s Allowed: subs OK Medic ationGen ericName : Flonase Allergy Relief Not Available Not Available Not Available Vitals Date Recorded Body height Body mass index (BMI) Body weight Provider Name and Address Organization Details Last Updated DateTime 04/03/2024 167.64 cm 37.1 kg/m2 683504.25 g Cristina Spangler [place] - [facility] 04/03/2024 15:12:35 Date Recorded Body height Body mass index (BMI) Body weight Provider Name and Address Organization Details Last Updated DateTime 04/24/2024 167.64 cm 37.1 kg/m2 578936.25 g Cristina Spangler [place] - [facility] 04/24/2024 15:24:44 Date Recorded Body height Body weight Provider Name and Address Organization Details Last Updated DateTime 10/16/2024 167.64 cm 337188.25 g Cristina Spangler [place] [facility] 10/16/2024 14:07:25 Social History None recorded. [...] Note [id number] TUCKER HASKINS MD [facility] [address] [address] 04/03/2024 14:33:30 04/03/2024 15:36:56 Otorrhea of left ear 3747117706 898700 H92.12 [id number] TUCKER HASKINS MD [facility] [address] [address] 04/24/2024 14:47:28 04/24/2024 16:12:28 Abnormal auditory perception 58798600 H93.293 Right Ear:Normal hearing.Ty pe A tympanogra m.Left Ear:Normal hearing.Ty pe A tympanogra m, rounded. Referred o talgia of left ear 2391664653 123076 H92.02 The patient complains of persistent chronic periauricu lar pressure sensation. Physical exam reveals no identifiab le source of these symptoms involving the auricle, external auditory canal, or tympanic membrane. Audiometri c testing and tympanomet ry are similarly unrevealin g. Furthermor e, examinatio n was positive for crepitus and tenderness of the left jaw joint and susan-TMJ musculatur e. The patient's periauricu lar pressure sensation is most likely consistent with intermitte nt inflammati on of the jaw joint or spasm of the surroundin g musculatur e. This is likely exacerbate d by the dental clenching and grinding. I recommende d the patient use light [...] therapist who specialize s in TMJ disorders was provided. Pain of temporomandibular joint 62233245 M26.622 [id number] LÁZARO LOCKHART MD [facility] [address] [address] 07/16/2024 13:57:29 07/16/2024 14:19:25 Abnormal auditory perception 04049902 H93.292 Allergic rhinitis 577741 04 J30.9 [id number] TUCKER HASKINS MD [facility] [address] [address] 10/16/2024 13:53:46 10/16/2024 15:10:59 Abnormal auditory perception 69140316 H93.292 Right Ear:Did not test Left Ear:Essent ially normal hearing.Ty pe A tympanogra m, rounded. Referred o talgia of left ear 9310655184 560770 H92.02 Pain of temporomandibular joint 65174845 M26.622 Health Concerns Section Related Observation LastModified by Organization Detai ls LastModified Time None Recorded Concern Status LastModified by Organization Details LastModified Time None Recorded Advance Directives Directive None Recorded Payers Insurance Date Sequence Insurance Name Policy Number Policy Valenzuela Covered Member ID Valenzuela Member ID Guarantor Name 10/16/2024 1 [employer] [id number] 3 Arnoldo Austin [id number] BF Rosamaria Austin Notes Date Note Type [...] been foul-smelling recently. TUCKER HASKINS MD [address] [facility],[place] [address], [place], [address], [facility] 04/03/2024 15:40:03 04/24/2024 text/html Patient with [...] topical Ciprodex drops. TUCKER HASKINS MD [address] [facility],[address], [address], [facility] 04/24/2024 16:16:13 07/16/2024 text/html Patient with [...] for her knees. LÁZARO DENIS MD [address] [facility],[address], [place], [address], [facility] 07/16/2024 14:18:06 10/16/2024 text/html Patient with [...] recommended use of Flonase TUCKER HASKINS MD [address] [place] [address], [address], [facility] - [facility] 10/16/2024 15:11:34 OBGyn Episode No OBEpisode recorded.
--- NOTE | 2025-03-26 15:44 | A.OFFPC_ITS ---
Vital Signs 03/26/25 15:47 Height 5 ft 6 in Weight 254 lb BMI 41.0 BP 136/82 Blood Pressure Location Rt brachial Position Sitting Respiration 16 Pulse 70 Pulse Source Pulse Oximeter Temp 97.9 F Temp Source Oral Pulse Oximetry (%) 99 Oxygen Delivery Method Room Air Intake Visit Reasons: 3 months f/up Intake Note: Pt is here today for her 3mo. f/u Allergies hayfever Allergy (Uncoded 03/31/25 03:46) Rash Medication List - Last Reconciled 03/31/25 by Kelsey Keith MD albuterol sulfate 90 mcg/actuation 1 inh inhalation QID PRN atorvastatin 20 mg PO .qod ciclopirox 8% 1 appl topical BEDTIME 4 weeks eszopiclone (Lunesta) 3 mg PO BEDTIME PRN ibuprofen 800 mg PO Q12H PRN levothyroxine 137 mcg PO QAM metoprolol succinate ER 50 mg PO DAILY omeprazole 20 mg PO DAILY Tobacco use date assessed: 03/26/25 Dental Screening Dental Screen Date: 03/26/25 Did you have a dental visit in the last 12 months?: Yes Did you have a dental problem in the last 6 months where you did not have access to dental care?: No Was dental information given to patient?: Patient has dentist HPI 3 months f/up HPI Details 60-year-old lady with past medical histo ry significant for multinodular thyroid with hypothyroidism, hypertension, mixed dyslipidemia, mild intermittent asthma, stable controlled on present treatment, pulmonary nodule, currently doing yearly lung cancer screenings with low-dose CT scan, osteoarthritis status post right total knee replacement 03/2024, here today for a follow-up. She has been compliant with taking her medications, follows a low- cholesterol diet and has been going to the gym to exercise. Frustrated that she is still not losing any weight, but energy level is taking up now that she has been exercising regularly. [facility] Medical History Essential hypertension Mixed dyslipidemia Acquired hypothyroidism Multinodular thyroid Pulmonary nodule Mild intermittent asthma Allergic rhinitis Nicotine dependence, cigarettes, uncomplicated Migraine Chronic GERD Osteoarthritis Osteoarthritis of right knee Intermittent left-sided chest pain Bilateral lower extremity edema Insomnia Obesity Abnormal nerve conduction studies Peroneal neuropathy Chronic left mastoiditis Deviated nasal septum Surgical History Hx of foot surgery History of section History of tonsillectomy History of carpal tunnel surgery of right wrist History of esophagogastroduodenoscopy (EGD) (~2018) History of thoracic surgery (~2007) Family History Father Heart disease Emphysema, unspecified Mother HTN (hypertension) Hyperlipidemia Paternal Aunt Breast cancer Paternal Uncle Cancer of prostate Brother No problems noted. Brother No problems noted. Daughter No problems noted. Social History Housing: House Alcohol intake: current Patient Tobacco Use Status: Current everyday Tobacco user Tobacco use type: Cigarette Cigarette Packs Per Day: 1 Years Smoked: 42 (onset 14yo, 1ppd x 42yrs, 40pyh) e-Cigarette/Vaping Use: Never Used Second Hand Smoke Exposure: No Current occupational status: employed Current occupation: assisting cook Current occupational exposures/hazards: No Cognitive needs: No Hearing needs: No Vision needs: No Questionnaire Thrive Questionnaire Date Thrive assessed: 12/11/24 I am a: Patient What is your living situation today?: I have a steady place to live Within the past 12 months, did the food you bought not last and you didn't have the money to get more?: Never true Within the past 12 months, did you worry whether your food would run out before you got money to buy more?: Never true Do you have trouble paying for medicines?: No Do you have trouble getting transportation to medical appointments?: No Do you have trouble paying your heating and electricity bill?: No Do you have trouble taking care of your child, family member or friend?: No Do you have trouble with day-to-day activities such as bathing, preparing meals, shopping, managing finances, etc.?: No Are you currently unemployed and looking for a job?: No Are you interested in more education?: No Please select the resources that you would like help with: None Currently or been in a relationship where the following occur: I choose not to answer THRIVE Score: 0 ALESSIO-7 AMB Questionnaire ALESSIO-7 Date ALESSIO - 7 assessed: 12/18/24 Source: Developed by Drs. Flynn Gotti, Samantha Jolley, Sebastián Childress and colleagues, with an educational collette from [employer]. Review of Systems Const Denies weakness Eyes Details: Goes to [facility] for her routine eye exam Reports no additional complaints ENT Denies dizziness Card Denies chest pain with activity, Denies rapid heart rate, Denies pedal edema, Denies edema, Denies leg edema, Denies lightheadedness, Denies palpitations, Denies dyspnea, Denies dyspnea on exertion and Denies orthopnea Resp Denies cough, Denies dyspnea and Denies dyspnea on exertion GI Denies hematochezia and Denies change in stool character Details: She sees Dr. Leona Aaron for her routine Pap and pelvic exam, copy of last Pap results requested Reports no additional complaints Musc Denies abnormal gait, Denies muscle cramps, Denies muscle weakness, Denies numbness, Denies radiating pain into limb and Denies tingling Skin/Breast Denies breast pain, Denies breast mass and Denies rash Neuro Denies abnormal gait, Denies dizziness, Denies numbness, Denies tingling and Denies weakness Psych Reports no additional complaints Endo Denies palpitations Earl/Lymph Reports no additional complaints Aller/Immun Reports no additional complaints Physical exam (Primary Care) Vital Signs: Last Vital Signs Temp 97.9 F 03/26/25 15:47 Pulse 70 03/26/25 15:47 Resp 16 03/26/25 15:47 BP 136/82 03/26/25 15:47 Pulse Ox 99 03/26/25 15:47 Oxygen Delivery Method Room Air 03/26/25 15:47 BMI result Body Mass Index 41.0 Tobacco/Smoking Status: Tobacco use Status Tobacco use date assessed 03/26/25 03/26/25 15:46 Patient Tobacco Use Status Current everyday Tobacco 03/26/25 15:46 Tobacco use type Cigarette 03/26/25 15:46 e-Cigarette/Vaping Use Never Used 03/26/25 15:46 Thrive Assessment: Date of Thrive Assessment Date Thrive assessed 12/11/24 03/26/25 15:46 Currently or been in a relationship where the following occur: I choose not to answer Const General: no acute distress Nutritional Appearance: obese morbidly obese Orientation/consciousness: patient oriented x3 [facility] General nose exam: Normal external nose present and No nasal discharge present Mouth: Normal oral and palatal mucosa present and moist mucous membranes Eyes General: appearance normal, both eyes and all related structures Conjunctivae: conjunctivae normal Sclerae: sclerae normal Pupils: Equal, round and reactive pupils present EOM: EOMs intact bilaterally Neck Neck: Yes full ROM, Yes no lymphadenopathy and Yes supple Chest Chest palpation & inspection: normal inspection of the chest Breast/axilla palpation: normal palpation of the breasts Resp Effort & Inspection: normal respiratory effort and able to speak in complete sentences Auscultation: clear to auscultation bilaterally Cardio Rate: regular rate Rhythm: regular rhythm Heart sounds: S1 normal heart sound present and S2 normal heart sound present GI Inspection: Yes normal to inspection Palpation (GI): Soft to palpation, nontender, no guarding and no masses General: Yes no CVA tenderness Back/Spine/Pelvis Back: no CVA tenderness and No back tenderness Skin Other: Thick discolored toenails bilateral Neuro General: patient oriented x3, gait normal, tone normal, Normal light touch and pain sensation and no focal motor deficits Cranial nerves: Yes Equal, round and reactive pupils present Extrem General: Yes full ROM, Yes no joint enlargement and Yes normal gait Psych Appearance: grossly normal and well kempt Mental Status: mental status grossly normal Speech and movement: Normal speech and movement present Affect: normal affect Thought process: Normal thought process present Results Reviewed Results Reviewed: Name: Rosamaria Austin Age/Sex: 59/F : 1965 Unit#: [id number] Attend Dr: Kelsey Keith MD Re03/07/25 Status: DEP REF Location: [facility] Disch: SPEC : [id number] SANTANA: 03/07/25 STATUS: COMP REQ : [id number] RECD: 03/07/[address]: Kelsey Keith MD COMP: 03/07/252 ENTERED: 03/07/[address]: ORDERED: Met Prof Fast, AST, ALT, Lipid Panel, Vitamin D 25-OH, Free T4, TSH Test Result Flag Reference Sodium 142 135-145 mmol/L Potassium 4.6 3.3-5.1 mmol/L CL 108 96-108 mmol/L CO2 26 22-29 mmol/L Gap 13 12-20 BUN 14 9-16 mg/dL Creat 0.74 0.5-1.4 mg/dL eGFR > 60 Chronic Kidney Disease: Estimated GFR < 60 mL/min/1.73m2 Severe Kidney Disease: Estimated GFR < 15 mL/min/1.73m2 FBS 100 H 60-99 mg/dL A fasting glucose from 100-125 mg/dl is considered impaired (pre-diabetes). CA 9.6 8.4-10.2 mg/dL AST (GOT) 24 5-31 U/L ALT (GPT) 21 0-31 U/L Triglyceride 164 H <150 mg/dL Desirable Triglyceride: less than 150 mg/dL Borderline High Triglyceride 150-199 mg/dL High Triglyceride: 200-499 mg/dL Very High Triglyceride: greater than or equal to 5OO mg/dL Cholesterol 193 <200 mg/dL Desirable Cholesterol: less than 200 mg/dL Borderline High Cholesterol: 200-239 mg/dL High Cholesterol: greater than 239 mg/dL LDL Calculated 113 H <100 mg/dL Desirable LDL: less than 100 mg/dL Near Optimal/Above Optimal LDL: 110-129 mg/dL Borderline High LDL: 130-159 mg/dL High LDL: 160-189 mg/dL Very High LDL: greater than or equal to 190 mg/dL HDL 48 >40 mg/dL Desirable HDL: greater than 40 mg/dL Note: This HDL assay may give artificially low results in patients with liver disease. Vitamin D 25-OH 72.4 >30 ng/mL Health Based Reference Values* < 20 ng/mL Deficient 20-30 ng/mL Insufficient > 30 ng/mL Sufficient *Mena FANRSWORTH. N Engl J Med. 2007;357:266-280 There is no well-established upper level of normal vitamin D levels. Some laboratories use 50 ng/mL as an upper limit of normal. However, toxicity is patient-dependent and may occur at any level. Careful correlation with the patient's presentation is necessary and, if there is concern for vitamin D toxicity, treatment should be considered irrespective of the serum level. Care must be taken in interpreting Vitamin D results from different laboratories and methodologies. Published data demonstrated that results from patients undergoing hemodialysis may show a negative bias when tested with various automated 25-OH vitamin D assays when compared to LC-MS/MS. When testing samples from patients whose predominant form of Vitamin D is Vitamin D2, such as patients receiving Vitamin D2 supplementation, results that are subtherapeutic should be confirmed with another method such as LC-MS/MS. Free T4 1.08 0.71-1.85 ng/dL TSH 3rd Gen. 0.38 0.32-4.0 uIU/mL TSH 3rd Generation ([facility]) Laboratory Tests 03/07/25 09:35 Estimat Average Glucose 117 Hemoglobin A1c % 5.7 Coding Level of Care Code Est Pt Level 4 (21651) Complex EM visit Add On G2211 Diagnoses Acquired hypothyroidism E03.9 Essential hypertension I10 Mixed dyslipidemia E78.2 Assessment & Plan Assessment & Plan (1) Acquired hypothyroidism: Code(s): E03.9 - Hypothyroidism, unspecified Category: Medical Plan: Thyroid levels are within normal limits, continue with her levothyroxine 137 mcg daily in morning an hour before breakfast (2) Essential hypertension: Code(s): I10 - Essential (primary) hypertension Category: Medical Plan: Blood pressure at goal of less than 130/80. Continue with current medication. Reinforced importance of following a low sodium diet, getting regular exercise, and lowering stress levels. (3) Mixed dyslipidemia: Code(s): E78.2 - Mixed hyperlipidemia Category: Medical Plan: Latest fasting labs showed results within normal limits except for elevated triglycerides. Continue atorvastatin 20 mg taken every other day, in addition to adhering to healthy eating habits and regular exercise. Orders: Orders Alanine Aminotransferase 09/05/25 E03.9 - Hypothyroidism, unspecified, E78.2 - Mixed hyperlipidemia, I10 - Essential (primary) hypertension, Z78.0 - Asympto matic menopausal state Aspartate Amino Transferase 09/05/25 E03.9 - Hypothyroidism, unspecified, E78.2 - Mixed hyperlipidemia, I10 - Essential (primary) hypertension, Z78.0 - Asymptomatic menopausal state Lipid Panel 09/05/25 E03.9 - Hypothyroidism, unspecified, E78.2 - Mixed hyperlipidemia, I10 - Essential (primary) hypertension, Z78.0 - Asymptomatic menopausal state Thyroid Stimulating Hormone 09/05/25 E03.9 - Hypothyroidism, unspecified, E78.2 - Mixed hyperlipidemia, I10 - Essential (primary) hypertension, Z78.0 - Asymptomatic menopausal state Basic Metabolic Panel Fasting 09/05/25 E03.9 - Hypothyroidism, unspecified, E78.2 - Mixed hyperlipidemia, I10 - Essential (primary) hypertension, Z78.0 - Asymptomatic menopausal state Free T4 (Free Thyroxine) 09/05/25 E03.9 - Hypothyroidism, unspecified, E78.2 - Mixed hyperlipidemia, I10 - Essential (primary) hypertension, Z78.0 - Asymptomatic menopausal state Vitamin D 25-OH Total 09/05/25 E03.9 - Hypothyroidism, unspecified, E78.2 - Mixed hyperlipidemia, I10 - Essential (primary) hypertension, Z78.0 - Asymptomatic menopausal state Hemoglobin A1c 09/05/25 E03.9 - Hypothyroidism, unspecified, E78.2 - Mixed hyperlipidemia, I10 - Essential (primary) hypertension, Z78.0 - Asymptomatic menopausal state Medications: Changed From albuterol sulfate 90 mcg/actuation (ProAir HFA) 1 inh inhalation QID PRN 8.5 grams 5RF shortness of breath or wheezing To albuterol sulfate 90 mcg/actuation 1 inh inhalation QID PRN 8.5 grams 5RF shortness of breath or wheezing Refilled atorvastatin 20 mg PO .qod 90 tabs 4RF levothyroxine 137 mcg PO QAM 90 tabs 4RF E03.9 - Hypothyroidism, unspecified metoprolol succinate ER 50 mg PO DAILY 90 tabs 1RF I10 - Essential (primary) hypertension
[2025-03-26 15:47] VITALS: BP 136/82; PULSE 70; RESP 16; TEMP 36.6; O2SAT 99; BMI 41.0
== END 2025-03-26 16:33 | disposition home or self-care (01) ==
LOC: HO.HMCC 15:17
PROVIDERS: PCP Internal Medicine; Visit Provider Internal Medicine
DX: E03.9 Hypothyroidism, unspecified (principal); I10 Essential (primary) hypertension; E78.2 Mixed hyperlipidemia

== ENCOUNTER → 2025-03-26 15:16 | Outpatient (BNVA) | payer BC, SELFPAY | PROVIDERS: PCP Internal Medicine; Visit Provider Internal Medicine ==

== ENCOUNTER 2025-07-06 13:40 | Outpatient (AMB) | payer BC, SELFPAY ==
--- OUTSIDE RECORDS SUMMARY | 2025-07-06 15:53 | XMS_ITS | Patient Health Record ---
Author Organization [facility] Jose ghassan Lopez Address [address] [place] [address] Care Team Providers Care Drawing Box Tender Name Role Phone Sagar ARAUJO, Kelsey Blcakmon Primary Care Provider Un available Black, Sarahi Unavailable [phone] Reason For Referral No Information Medications Medication SIG (Take, Route, Frequency, Duration) Notes Start Date End Date Status Metoprolol & Diet Manage Prod Active Atorvastatin Calcium Active Ibuprofen 600 MG 1 tablet Orally Thre e times a day; Duration: 30 day(s) Active Multivitamins as directed Orally Active Advair Diskus 100-50 MCG/DOSE 1 puff Inhalation Twice a day Active Synthroid 137 MCG 1 tablet on an empty stomach in the morning Orally Once a day; Duration: 30 day(s) Active Problems Problem Type SNOMED Code ICD Code Onset Dates Problem Status W/U Status Risk Notes Problem Information temporarily unavailable Bursitis (727.3) Active confirmed Problem Information temporarily unavailable Bursitis (727.3) Active confirmed Problem Information temporarily unavailable Hallux Valgus (735.0) Active confirmed Problem Information temporarily unavailable Hammer toe (735.4) Active confirmed Problem Information temporarily unavailable Metatarsalgia (726.70) Active confirmed Problem Information temporarily unavailable Myositis (729.1) Active confirmed Problem Information temporarily unavailable Pain in Limb (729.5) Active confirmed Problem Information temporarily unavailable Plantar Fasciitis (728.71) Active confirmed Problem Information temporarily unavailable Plantarflexed Metatarsal (838.04) Active confirmed Plan Of Treatment Pending Test Test Name Order Date X ray : Foot, left 3V 03/06/2013 X ray : Foot, right 3V 03/06/2013 Insurance Providers Payer Name Payer Address Payer Phone Subscriber Number Group Number Insured Name Patient Relationship to Insured Coverage Start Date Coverage End Date [facility] Others [address] [place] [address] [id number] Arnoldo Austin Spouse - patient is the spouse of the insured Medical (General) History Medical History History ICD Code asthma back, hip, knee pain broken bones chicken pox headaches/migraines sinus conditions thyroid disorder Surgical History Surgery Date(Month/Year) section 1995 tonsillectomy disc surgery 2007
== END 2025-07-06 13:46 | disposition home or self-care (01) ==
LOC: HO.HMGAL 13:40
PROVIDERS: PCP Internal Medicine; Visit Provider Registered Nurse Emergency
DX: J30.89 Other allergic rhinitis (principal)
CPT/HCPCS: 95117; 95165

== ENCOUNTER 2025-08-24 13:53 | Outpatient (REF) | payer BC, SELFPAY ==
--- NOTE | ~2025-08-24 | MM_ITS ---
EXAMINATION: MM SCREENING DIGITAL BREAST TOMOSYNTHESIS, BILATERAL CLINICAL INFORMATION: Screening. Asymptomatic. COMPARISON: Mammography: Comparison is made with available priors TECHNIQUE: Digital breast mammography with tomosynthesis is performed in both the craniocaudal and mediolateral oblique views along with computer-aided detection (CAD). FINDINGS: There are scattered areas of fibroglandular density. There are no significant masses, abnormal calcifications, or other abnormalities. MM/MM tomosynthesis screening BI IMPRESSION: No mammographic evidence of malignancy. ASSESSMENT: BI-RADS Category 1: Negative RECOMMENDATION: Routine annual mammography screening. 1 year F/U This examination should not preclude the clinical evaluation of a suspicious palpable abnormality. This patient's information was entered into a reminder system with a target due date for their next mammogram. Electronically signed by: Rubina Awad DO 08/25/2025 03:17 PM EDT
--- OUTSIDE RECORDS SUMMARY | 2025-08-24 17:31 | XMS_ITS | Data Portability ---
Author Organization [place] - [facility], Allergy Address [address] [address] Care Team Providers Care Loop Sewer Name Role Phone MELISSA YIN Primary Care Provider [phone] Assessment Encounter Date Assessment Date Assessment LastModified [...] the floor of the middle cranial fossa. [email or web address] Not available 04/03/2024 15:38:35 04/24/2024 04/24/2024 Left [...] pressure and blockage sensation in this ear. [email or web address] Not available 04/24/2024 16:15:00 07/16/2024 07/16/2024 Patient [...] also can have her be evaluated in [place] for second opinion if she would like [...] periauricular symptoms. She may follow-up as needed [email or web address] Not available 10/16/2024 15:11:12 Plan of Treatment Reminders Order Date Submit Date Provider Last Modified By Organization Details Last Modified Time Details Appointments None recorded. Lab None recorded. Referral None recorded. Procedures None recorded. Surgeries None recorded. Imaging None recorded. Medication Orders ciprofloxac in 0.3 %-dexametha sone 0.1 % ear drops,suspe nsion 2023 024 [facility] #[id number], [address] [facility] [place], [place], [address], 14:07:46 Patient TargetsNo targets recorded. Patient InstructionsNo instructions recorded. Reason for Referral None Reported. Results Created Date Observation Date Name Description Value Unit Range Abnormal Flag Note LastModifiedBy Organization Detail LastModifiedTime 03/27/20 24 03/26/2024 MRI, brain + brain stem, w/wo contr ast [facility] Access ion Number : [id number] Patianitha t Name: Rosamaria Neala moris Record Number : [id number] Date of : 1964 Date of Exam: 2023 Referr ing Physic marco a: Susan Haskins re Ear Nose [address] [place] [address] Exam: MR Brain (C-/C+ ) CPT 25181 [facility] CPT 18873 INDICA TION / CLINIC AL QUESTI ON: [...] or abnorm al enhanc ement in the policy intern al audito ry canals or cerebe [...] , and also layers in the left buyer liaison al audito ry canal. There is periph [...] , and layeri ng in the left buyer liaison al audito ry canal, concer rhianna for CSF otorrh ea. The tegmen mastoi deum is thin; bony integr ity of the tegmen cannot be assess ed on MRI, and CT may be consid ered for identi ficati on of bony defect as clinic [facility] [place]. 2. No associ ated enceph alocel e [...] ms. Electr onical ly Signed By: Angella soler[address] ([facility]) [address], [place], [address], 03/31/2024 12:08:08 04/28/20 audio gram No observ ation record ed. [email or web address] Not Available 10/2023 16:02:48 06/18/20 24 11/21/2023 [...] Organization Details Recorded Time Deviated nasal septum 060765121 Active 2020 Deviated nasal septum; Note: Date Diagnose d: 1 3:25 PM (J34.2) Not Available [facility] 4 03:06:51 Refracto ry migraine 308046530 Active 2020 Other migraine , intracta ble, without status migraino zoey; Note: Date Diagnose d: 1 3:25 PM (G43.819 ) Not Available [facility] 4 03:06:52 Allergic rhinitis 90037195 Active 2020 Other allergic rhinitis ; Note: Date Diagnose d: 1 3:25 PM (J30.89) Not Available [facility] 4 03:06:50 Abnormal auditory percepti on 81730426 Active 2020 Other abnormal auditory percepti ons, bilatera l; Note: Date Diagnose d: 1 3:13 PM (H93.293 ) Not Available [facility] 4 03:06:52 Bilatera l tinnitus 32881427942 02 Active 2020 Tinnitus , bilatera l; Note: Date Diagnose d: 1 3:13 PM (H93.13) Not Available [facility] 4 03:06:51 Chronic serous otitis media of left ear 486712255 Completed 202310/16/2024 Chronic serous otitis media, left ear; Note: Date Diagnose d: 4 3:59 PM (H65.22) TUCKER HASKINS MD [address] [facility],[place] [address], [place], [address] , [facility] - [facility] 4 15:09:48 Tobacco user 808697933 Active 2023 Tobacco use; Note: Date Diagnose d: 4 5:09 PM (Z72.0) Not Available [facility] 4 03:06:52 Otorrhea of left ear 97708592107 32041 Completed 202310/16/2024 TUCKER HASKINS MD [address] [facility],[place] [address], [place], [address] , [facility] - [facility] 4 15:09:56 Referred otalgia of left ear 40942432048 31113 Active 2023 TUCKER HASKINS MD [address] [facility],[place] [address], [place], [address] , [facility] - [facility] 4 16:12:54 Pain of temporom andibula r joint 27016056 Active 2023 TUCKER HASKINS MD [address] [facility],[place] [address], [place], [address] , [facility] - [facility] 4 16:12:59 Abnormal auditory percepti on 90970820 Active 2023 LÁZARO LOCKHART MD [address] [facility],[place] [address], [place], [address] , [facility] - [facility] 4 14:17:27 Problem Notes None recorded. Procedures Surgical History Date Name Laterality Status Provider Name and Address Organization Details Recorded Time 10/16/20 24 Air only Audio - 65393 completed CATHY FOX [address] [facility],[place] [address], [place], [address], [facility] - [facility] 10/16/2024 14:22:12 10/16/20 24 Tympanometry - 22719 completed CATHY FOX [address] [facility],[place] [address], [place], [address], [facility] - [facility] 10/16/2024 14:22:09 04/24/20 24 Air only Audio - 54392 completed DAVID HERNANDEZ, [facility] [address] [facility] [address], [place], [address], [place] - [facility] 04/24/2024 15:50:55 04/24/20 24 Tympanometry - 41151 completed DAVID HERNANDEZ, [facility] [address] [facility] [address], [address], [place] [facility] 04/24/2024 15:51:00 04/03/20 24 Cerumen removal with microscope left completed TUCKER HASKINS MD [address] [facility],[place] [address], [place], [address], [place] [facility] 04/03/2024 15:39:41 section completed Cristina Spangler [place] - [facility] 04/03/2024 15:07:34 tonsillectomy completed Cristina Spangler [place] [facility] 04/03/2024 15:07:53 Imaging Results None recorded. Procedure [...] mg tablet 2020 active Medicati on ID: [id number] B rand Name: pramipex ole Send Method: [...] mg tablet 2020 active Medicati on ID: 034767 B rand Name: furosemi de Send Method: E-Prescr ibed Sub s Allowed: subs OK Medic ationGen ericName : furosemi de Not Available Not Available Not Available azelastin e 137 mcg (0.1 %) nasal spray Inhale 2 spray twice a day as directed 2023 active Medicati on ID: [id number] D uration Value: 30 Brand Name: azelasti [...] aerosol inhaler 2020 active Medicati on ID: 448099 B rand Name: Symbicor t Send Method: E-Prescr ibed Sub s Allowed: subs OK Medic ationGen ericName : Symbicor t Not Available Not Available Not Available diclofena c 1 % topical gel APPLY 2 GRAMS TO THE AFFECTED AREA(S) BY TOPICAL ROUTE 4 TIMES PER DAY active Not Available Not Available No t Available cetirizin e 10 mg capsule active Medicati on ID: 896390 B rand Name: cetirizi ne Send Method: E-Prescr ibed Sub s Allowed: subs OK Medic ationGen ericName : cetirizi ne Not Available Not Available Not Available Flonase Allergy Relief 50 mcg/actua tion nasal spray,zoey pension active Medicati on ID: 903200 B rand Name: Flonase Allergy Relief S end Method: E-Prescr ibed Sub s Allowed: subs OK Medic ationGen ericName : Flonase Allergy Relief Not Available Not Available Not Available Vitals Date Recorded Body height Body mass index (BMI) Body weight Provider Name and Address Organization Details Last Updated DateTime 04/03/2024 167.64 cm 37.1 kg/m2 728427.25 g Cristina Spangler [place] - [facility] 04/03/2024 15:12:35 Date Recorded Body height Body mass index (BMI) Body weight Provider Name and Address Organization Details Last Updated DateTime 04/24/2024 167.64 cm 37.1 kg/m2 960696.25 g Cristina Spangler [facility] 04/24/2024 15:24:44 Date Recorded Body height Body weight Provider Name and Address Organization Details Last Updated DateTime 10/16/2024 167.64 cm 295776.25 g Cristina Spangler [facility] 10/16/2024 14:07:25 Social History None recorded. [...] Diagnosis SNOMED-CT Code Diagnosis ICD10 Code Diagnosis IMO Codes Diagnosis Note [id number] TUCKER HASKINS MD [facility] [address] [address] 04/03/2024 14:33:30 04/03/2024 15:36:56 Otorrhea of left ear 8442790198 721340 H92.12 [id number] TUCKER HASKINS MD [facility] [address] [address] 04/24/2024 14:47:28 04/24/2024 16:12:28 Abnormal auditory perception 35906259 H93.293 Right Ear:Normal hearing.Ty pe A tympanogra m.Left Ear:Normal hearing.Ty pe A tympanogra m, rounded. Referred o talgia of left ear 2046377661 497230 H92.02 The patient complains of persistent chronic [...] disorders was provided. Pain of temporomandibular joint 80109413 M26.622 [id number] LÁZARO LOCKHART MD [facility] [address] [address] 07/16/2024 13:57:29 07/16/2024 14:19:25 Abnormal auditory perception 10665592 H93.292 Allergic rhinitis 448395 04 J30.9 [id number] TUCKER HASKINS MD [facility] [address] [address] 10/16/2024 13:53:46 10/16/2024 15:10:59 Abnormal auditory perception 62751430 H93.292 Right Ear:Did not test Left Ear:Essent ially normal hearing.Ty pe A tympanogra m, rounded. Referred o talgia of left ear 9632980912 093507 H92.02 Pain of temporomandibular joint 50776173 M26.622 Health Concerns Section Related Observation LastModified by Organization Detai ls LastModified Time None Recorded Concern Status LastModified by Organization Details LastModified Time None Recorded Advance Directives Directive None Recorded Payers Insurance Date Sequence Insurance Name Policy Number Policy Valenzuela Covered Member ID Valenzuela Member ID Guarantor Name 10/16/2024 1 [place] [id number] Arnoldo Austin [id number] BF Rosamaria Austin Notes Date Note Type [...] been foul-smelling recently. TUCKER HASKINS MD [address] [facility],[address], [address], [facility] 04/03/2024 15:40:03 04/24/2024 text/html Patient with [...] topical Ciprodex drops. TUCKER HASKINS MD [address] [facility],[address], [address], [facility] 04/24/2024 16:16:13 07/16/2024 text/html ROS as noted in the HPI Patient with history of allergy presents for [...] for her knees. LÁZARO DENIS MD [address] [facility] [address], [place], [address], [place] - [facility] 07/16/2024 14:18:06 10/16/2024 text/html Patient with [...] recommended use of Flonase TUCKER HASKINS MD [address] [place] [address], [place], [address], [facility] - [facility] 10/16/2024 15:11:34 OBGyn Episode No OBEpisode recorded.
--- OUTSIDE RECORDS SUMMARY | 2025-08-24 17:31 | XMS_ITS | Patient Health Record ---
Author Organization [facility] Jose ghassan Lopez Address [address] [place] [address] Care Team Providers Care Talent Development Director Name Role Phone Sagar ARAUJO, Kelsey Blackmon Primary Care Provider Un available Black, Sarahi Unavailable [phone] Reason For Referral No Information Medications Medication [...] Insured Coverage Start Date Coverage End Date [facility] [employer] Others [address] [place] [address] [phone] [id number] Arnoldo Austin Spouse - patient is the spouse of the insured Medical (General) History Medical History History ICD Code asthma back, hip, knee pain broken bones chicken pox headaches/migraines sinus conditions thyroid disorder Surgical History Surgery Date(Month/Year) section 1995 tonsillectomy disc surgery 2007
== END 2025-08-24 13:54 | disposition home or self-care (01) ==
LOC: HO.MAMMO 13:53
PROVIDERS: PCP Internal Medicine; Visit Provider Internal Medicine
DX: Z12.31 Encounter for screening mammogram for malignant neoplasm of breast (principal)
CPT/HCPCS: 77063; 77067

== ENCOUNTER 2025-08-24 13:58 | Outpatient (AMB) | payer BC, SELFPAY | END 2025-08-24 13:59 | disposition home or self-care (01) | LOC: HO.HMGAL 13:58 | PROVIDERS: PCP Internal Medicine; Visit Provider Registered Nurse Emergency | DX: J30.89 Other allergic rhinitis (principal) | CPT/HCPCS: 95117; 95165 ==

== ENCOUNTER → 2025-08-24 14:30 | Outpatient (BNV) | payer BC, SELFPAY | PROVIDERS: PCP Internal Medicine; Visit Provider Internal Medicine | DX: Z12.31 Encounter for screening mammogram for malignant neoplasm of breast (principal) | CPT/HCPCS: 77063; 77067 ==

== ENCOUNTER 2025-09-12 08:41 | Outpatient (REF) | payer BC, SELFPAY ==
--- OUTSIDE RECORDS SUMMARY | 2025-09-12 08:44 | XMS_ITS | Data Portability ---
Author Organization [place] - [facility], Allergy Address [address] [address] Care Team Providers Care Wares Sorter Name Role Phone MELISSA YIN Primary Care [...] the floor of the middle cranial fossa. [email or web address] Not available 04/03/2024 15:38:35 04/24/2024 04/24/2024 Left [...] pressure and blockage sensation in this ear. [email or web address] Not available 04/24/2024 16:15:00 07/16/2024 07/16/2024 Patient [...] also can have her be evaluated in [place] for second opinion if she would like [...] periauricular symptoms. She may follow-up as needed [email or web address] Not available 10/16/2024 15:11:12 Plan of Treatment Reminders Order Date Submit Date Provider Last Modified By Organization Details Last Modified Time Details Appointments None recorded. Lab None recorded. Referral None recorded. Procedures None recorded. Surgeries None recorded. Imaging None recorded. Medication Orders ciprofloxac in 0.3 %-dexametha sone 0.1 % ear drops,suspe nsion 2023 024 [facility] #[id number], [address] [facility], [place], [address], 14:07:46 Patient TargetsNo targets recorded. Patient InstructionsNo instructions recorded. Reason for Referral None Reported. Results Created Date Observation Date Name Description Value Unit Range Abnormal Flag Note LastModifiedBy Organization Detail LastModifiedTime 03/27/20 24 03/26/2024 MRI, brain + brain stem, w/wo contr ast [facility] Access ion Number : [id number] Patianitha t Name: Rosamaria Neala moris Record Number : [id number] Date of : 1964 Date of Exam: 2023 Referr ing Physic marco a: Susan Haskins re Ear Nose [address] [place] [address] Exam: MR Brain (C-/C+ ) CPT 56540 [facility] ([facility] CPT 69695 INDICA TION / CLINIC AL QUESTI ON: [...] or abnorm al enhanc ement in the internet marketing manager al audito ry canals or cerebe llopon [...] , and also layers in the left photography spotter al audito ry canal. There is periph [...] a lipid poor ayden ioma or venous shafre. Visual ized marrow signal is otherw ise preser mari. IMPRES KIARA: 1. Fluid fillin g the left mastoi d air cells, left middle ear cavity , and layeri ng in the left photography spotter al audito ry canal, concer rhianna for [...] ms. Electr onical ly Signed By: Angella soler[address] [facility] ([facility]) [address], [place], [address], 03/31/2024 12:08:08 04/28/20 audio gram No observ ation record ed. [email or web address] Not Available 10/2023 16:02:48 06/18/20 24 11/21/2023 [...] Organization Details Recorded Time Deviated nasal septum 929445051 Active 2020 Deviated nasal septum; Note: Date Diagnose d: 1 3:25 PM (J34.2) Not Available [facility] 4 03:06:51 Refracto ry migraine 693890163 Active 2020 Other migraine , intracta ble, without status migraino zoey; Note: Date Diagnose d: 1 3:25 PM (G43.819 ) Not Available [facility] 4 03:06:52 Allergic rhinitis 79747597 Active 2020 Other allergic rhinitis ; Note: Date Diagnose d: 1 3:25 PM (J30.89) Not Available [facility] 4 03:06:50 Abnormal auditory percepti on 75478253 Active 2020 Other abnormal auditory percepti ons, bilatera l; Note: Date Diagnose d: 1 3:13 PM (H93.293 ) Not Available [facility] 4 03:06:52 Bilatera l tinnitus 05177696093 02 Active 2020 Tinnitus , bilatera l; Note: Date Diagnose d: 1 3:13 PM (H93.13) Not Available [facility] 4 03:06:51 Chronic serous otitis media of left ear 011483429 Completed 202310/16/2024 Chronic serous otitis media, left ear; Note: Date Diagnose d: 4 3:59 PM (H65.22) TUCKER HASKINS MD [address] [facility],[place] [address], [place], [address] , [facility] - [facility] 4 15:09:48 Tobacco user 607228325 Active 2023 Tobacco use; Note: Date Diagnose d: 4 5:09 PM (Z72.0) Not Available [facility] 4 03:06:52 Otorrhea of left ear 85097385678 01183 Completed 202310/16/2024 TUCKER HASKINS MD [address] [facility],[place] [address], [place], [address] , [facility] - [facility] 4 15:09:56 Referred otalgia of left ear 00730160337 06068 Active 2023 TUCKER HASKINS MD [address] [facility],[place] [address], [place], [address] , [facility] - [facility] 4 16:12:54 Pain of temporom andibula r joint 39703548 Active 2023 TUCKER HASKINS MD [address] [facility],[place] [address], [place], [address] , [facility] - [facility] [place] 4 16:12:59 Abnormal auditory percepti on 45621643 Active 2023 LÁZARO LOCKHART MD [address] [facility],[place] [address], [place], [address] , [facility] - [facility] 4 14:17:27 Problem Notes None recorded. Procedures Surgical History Date Name Laterality Status Provider Name and Address Organization Details Recorded Time 10/16/20 24 Air only Audio - 81074 completed CATHY FOX [address] [facility],[place] [address], [place], [address], [facility] - [facility] 10/16/2024 14:22:12 10/16/20 24 Tympanometry - 30236 completed CATHY FOX [address] [facility],[place] [address], [place], [address], [facility] - [facility] [place] 10/16/2024 14:22:09 04/24/20 24 Air only Audio - 65797 completed DAVID HERNANDEZ, [facility] [address] [facility] [address], [place], [address], [place] - [facility] [place] 04/24/2024 15:50:55 04/24/20 24 Tympanometry - 33384 completed DAVID HERNANDEZ, [facility] [address] [facility] [address], [address], [place] - [facility] 04/24/2024 15:51:00 04/03/20 24 Cerumen removal with microscope left completed TUCKER HASKINS MD [address] [facility],[place] [address], [place], [address], [place] - [facility] 04/03/2024 15:39:41 section completed Cristina Spangler [place] - [facility] 04/03/2024 15:07:34 tonsillectomy completed Cristina Spangler [place] - [facility] 04/03/2024 15:07:53 Imaging Results None recorded. Procedure [...] mg tablet 2020 active Medicati on ID: [id number] B rand Name: pramipex ole Send Method: [...] mg tablet 2020 active Medicati on ID: 208206 B rand Name: furosemi de Send Method: E-Prescr ibed Sub s Allowed: subs OK Medic ationGen ericName : furosemi de Not Available Not Available Not Available azelastin e 137 mcg (0.1 %) nasal spray Inhale 2 spray twice a day as directed 2023 active Medicati on ID: [id number] D uration Value: 30 Brand Name: azelasti [...] aerosol inhaler 2020 active Medicati on ID: 339841 B rand Name: Symbicor t Send Method: E-Prescr ibed Sub s Allowed: subs OK Medic ationGen ericName : Symbicor t Not Available Not Available Not Available diclofena c 1 % topical gel APPLY 2 GRAMS TO THE AFFECTED AREA(S) BY TOPICAL ROUTE 4 TIMES PER DAY active Not Available Not Available No t Available cetirizin e 10 mg capsule active Medicati on ID: [id number] B rand Name: cetirizi ne Send Method: E-Prescr ibed Sub s Allowed: subs OK Medic ationGen ericName : cetirizi ne Not Available Not Available Not Available Flonase Allergy Relief 50 mcg/actua tion nasal spray,zoey pension active Medicati on ID: 741128 B rand Name: Flonase Allergy Relief S end Method: E-Prescr ibed Sub s Allowed: subs OK Medic ationGen ericName : Flonase Allergy Relief Not Available Not Available Not Available Vitals Date Recorded Body height Body mass index (BMI) Body weight Provider Name and Address Organization Details Last Updated DateTime 04/03/2024 167.64 cm 37.1 kg/m2 105558.25 g Cristina Spangler [place] - [facility] 04/03/2024 15:12:35 Date Recorded Body height Body mass index (BMI) Body weight Provider Name and Address Organization Details Last Updated DateTime 04/24/2024 167.64 cm 37.1 kg/m2 385987.25 g Cristina Spangler [facility] 04/24/2024 15:24:44 Date Recorded Body height Body weight Provider Name and Address Organization Details Last Updated DateTime 10/16/2024 167.64 cm 559730.25 g Cristina Spangler [facility] 10/16/2024 14:07:25 Social History None recorded. [...] Note [id number] TUCKER HASKINS MD [facility] [address] [address] 04/03/2024 14:33:30 04/03/2024 15:36:56 Otorrhea of left ear 6017744265 169028 H92.12 [id number] TUCKER HASKINS MD [facility] [address] [address] 04/24/2024 14:47:28 04/24/2024 16:12:28 Abnormal auditory perception 53258062 H93.293 Right Ear:Normal hearing.Ty pe A tympanogra m.Left Ear:Normal hearing.Ty pe A tympanogra m, rounded. Referred o talgia of left ear 7020238899 560302 H92.02 The patient complains of persistent chronic [...] disorders was provided. Pain of temporomandibular joint 05814748 M26.622 [id number] LÁZARO LOCKHART MD [facility] [address] [address] 07/16/2024 13:57:29 07/16/2024 14:19:25 Abnormal auditory perception 06171393 H93.292 Allergic rhinitis 879467 04 J30.9 [id number] TUCKER HASKINS MD [facility] [address] [address] 10/16/2024 13:53:46 10/16/2024 15:10:59 Abnormal auditory perception 14399760 H93.292 Right Ear:Did not test Left Ear:Essent ially normal hearing.Ty pe A tympanogra m, rounded. Referred o talgia of left ear 9163385829 729657 H92.02 Pain of temporomandibular joint 79552748 M26.622 Health Concerns Section Related Observation LastModified by Organization Detai ls LastModified Time None Recorded Concern Status LastModified by Organization Details LastModified Time None Recorded Advance Directives Directive None Recorded Payers Insurance Date Sequence Insurance Name Policy Number Policy Valenzuela Covered Member ID Valenzuela Member ID Guarantor Name 10/16/2024 1 [place] [id number] 3 Arnoldo Austin [id number] BF Rosamaria Austin Notes Date Note Type [...] been foul-smelling recently. TUCKER HASKINS MD [address] [facility],[address], [address], [facility] 04/03/2024 15:40:03 04/24/2024 text/html Patient with [...] drops. TUCKER HASKINS MD [address] [facility],[address], [address], [facility] 04/24/2024 16:16:13 07/16/2024 text/html ROS as [...] knees. LÁZARO DENIS MD [address] [facility] [address], [place], [address], [place] - [facility] 07/16/2024 14:18:06 10/16/2024 text/html Patient with [...] recommended use of Flonase TUCKER HASKINS MD [address] [place] [address], [place], [address], [facility] - [facility] 10/16/2024 15:11:34 OBGyn Episode No OBEpisode recorded.
[2025-09-12 12:32] LABS: Alanine Aminotransferase 29 U/L (0-31); Anion Gap 13 (12-20); Aspartate Amino Transferase 28 U/L (5-31); Blood Urea Nitrogen 16 mg/dL (9-16); Calcium 9.8 mg/dL (8.4-10.2); Carbon Dioxide 26 mmol/L (22-29); Chloride 107 mmol/L (96-108); Cholesterol 205 mg/dL (<200); Estimated Glomerular Filt Rate > 60; HDL Cholesterol 59 mg/dL (>40); Potassium 4.6 mmol/L (3.3-5.1); Sodium 141 mmol/L (135-145); Triglycerides 128 mg/dL (<150)
[2025-09-12 12:50] LABS: Free T4 (Free Thyroxine) 1.12 ng/dL (0.71-1.85); Thyroid Stimulating Hormone 0.49 uIU/mL (0.32-4.0)
== END 2025-09-12 08:42 | disposition home or self-care (01) ==
LOC: HO.HMGCLDS 08:41
PROVIDERS: PCP Internal Medicine; Visit Provider Internal Medicine
DX: I10 Essential (primary) hypertension (principal); E78.2 Mixed hyperlipidemia; E03.9 Hypothyroidism, unspecified; Z13.1 Encounter for screening for diabetes mellitus; Z78.0 Asymptomatic menopausal state
CPT/HCPCS: 36415; 80048; 80061; 82306; 83036; 84439; 84443; 84450; 84460

== ENCOUNTER 2025-09-17 13:58 | Outpatient (AMB) | payer BC, SELFPAY ==
[2025-09-17 15:17] VITALS: BP 140/80; PULSE 74; RESP 16; TEMP 36.7; O2SAT 97; BMI 41.3
--- NOTE | 2025-09-17 15:17 | MHC.PC.OV ---
Vital Signs 09/17/25 15:17 Height 5 ft 6 in Weight 256 lb BMI 41.3 BP 140/80 H Blood Pressure Location Rt brachial Position Sitting Respiration 16 Pulse 74 Pulse Source Pulse Oximeter Temp 98.1 F Temp Source Oral Pulse Oximetry (%) 97 Oxygen Delivery Method Room Air Intake Visit Reasons: 6m follow up Intake Note: Pt is here today for her 6mo. f/u Curriculum Consultant Required: No Allergies hayfever Allergy (Uncoded 09/17/25 15:39) Rash Medication List - Last Reconciled 09/17/25 by Kelsey Keith MD albuterol sulfate 90 mcg/actuation 1 inh inhalation QID PRN atorvastatin 20 mg PO .qod eszopiclone (Lunesta) 3 mg PO BEDTIME PRN ibuprofen 800 mg PO Q12H PRN levothyroxine 137 mcg PO QAM metoprolol succinate ER 50 mg PO DAILY omeprazole 20 mg PO DAILY Tobacco use date assessed: 09/17/25 Dental Screening Dental Screen Date: 03/26/25 HPI 6m follow up HPI Details 60-year-old lady with past medical history significant for multinodular thyroid with hypothyroidism, hypertension, mixed dyslipidemia, mild intermittent asthma controlled on present treatment, here today for a follow-up. She still smokes cigarettes, with no desire to quit at present time. Has been following healthy diet, avoiding all snacks and junk food, does not need any doing after supper, and has been exercising but still unable to lose weight. [facility] Medical History (Updated 09/27/25 @ 23:30 by Kelsey Keith MD) Morbid obesity with BMI of 40.0-44.9, adult Essential hypertension Mixed dyslipidemia Acquired hypothyroidism Multinodular thyroid Pulmonary nodule Mild intermittent asthma Allergic rhinitis Nicotine dependence, cigarettes, uncomplicated Migraine Chronic GERD Osteoarthritis of right knee Insomnia Peroneal neuropathy Chronic left mastoiditis Deviated nasal septum Surgical History Hx of foot surgery History of section History of tonsillectomy History of carpal tunnel surgery of right wrist History of esophagogastroduodenoscopy (EGD) (~2017) History of thoracic surgery (~2006) Family History Father Heart disease Emphysema, unspecified Mother HTN (hypertension) Hyperlipidemia Paternal Aunt Breast cancer Paternal Uncle Cancer of prostate Brother No problems noted. Brother No problems noted. Daughter No problems noted. Social History Housing: House Alcohol intake: current Patient Tobacco Use Status: Current everyday Tobacco user Tobacco use type: Cigarette Cigarette Packs Per Day: 1 Years Smoked: 42 (onset 14yo, 1ppd x 42yrs, 40pyh) e-Cigarette/Vaping Use: Never Used Second Hand Smoke Exposure: No Current occupational status: employed Current occupation: assisting cook Current occupational exposures/hazards: No Cognitive needs: No Hearing needs: No Vision needs: No Questionnaire PHQ-9 Over the last 2 weeks, how often have you been bothered by any of the following problems? 1. Little interest or pleasure in doing things: more than half the days 2. Feeling down, depressed, or hopeless: several days 3. Trouble falling or staying asleep, or sleeping too much: more than half the days 4. Feeling tired or having little energy: more than half the days 5. Poor appetite or overeating: not at all 6. Feeling bad about yourself - or that you are a failure or have let yourself or your family down: not at all 7. Trouble concentrating on things, such as reading the newspaper or watching television: not at all 8. Moving or speaking so slowly that other people could have noticed. Or the opposite - being so fidgety or restless that you have been moving around a lot more than usual: not at all 9. Thoughts that you would be better off or of hurting yourself in some way: not at all Total score: 7 Source: Developed by Drs. Flynn Gotti, Samantha Jolley, Sebastián Childress and colleagues, with an educational collette from [employer]. Thrive Questionnaire Date Thrive assessed: 12/11/24 I am a: Patient What is your living situation today?: I have a steady place to live Within the past 12 months, did the food you bought not last and you didn't have the money to get more?: Never true Within the past 12 months, did you worry whether your food would run out before you got money to buy more?: Never true Do you have trouble paying for medicines?: No Do you have trouble getting transportation to medical appointments?: No Do you have trouble paying your heating and electricity bill?: No Do you have trouble taking care of your child, family member or friend?: No Do you have trouble with day-to-day activities such as bathing, preparing meals, shopping, managing finances, etc.?: No Are you currently unemployed and looking for a job?: No Are you interested in more education?: No Please select the resources that you would like help with: None Currently or been in a relationship where the following occur: I choose not to answer THRIVE Score: 0 ALESSIO-7 AMB Questionnaire ALESSIO-7 Date ALESSIO - 7 assessed: 12/18/24 Source: Developed by Drs. Flynn Gotti, Samantha Jolley, Sebastián Childress and colleagues, with an educational collette from [employer]. Physical exam (Primary Care) Vital Signs: Last Vital Signs Temp 98.1 F 09/17/25 15:17 Pulse 74 09/17/25 15:17 Resp 16 09/17/25 15:17 BP 140/80 H 09/17/25 15:17 Pulse Ox 97 09/17/25 15:17 Oxygen Delivery Method Room Air 09/17/25 15:17 BMI result Body Mass Index 41.3 Tobacco/Smoking Status: Tobacco use Status Tobacco use date assessed 09/17/25 09/17/25 15:23 Patient Tobacco Use Status Current everyday Tobacco 09/17/25 15:23 Tobacco use type Cigarette 09/17/25 15:23 e-Cigarette/Vaping Use Never Used 09/17/25 15:23 PHQ-9: PHQ-9 Score PHQ-9: Total score 7 09/17/25 15:39 Thrive Assessment: Date of Thrive Assessment Date Thrive assessed 12/11/24 09/17/25 15:23 Currently or been in a relationship where the following occur: I choose not to answer Results Reviewed Results Reviewed: Name: Rosamaria Austin Age/Sex: 60/F : 1965 Unit#: [id number] Attend Dr: Kelsey Keith MD Re09/12/25 Status: DEP [facility] Disch: SPEC : [id number] SANTANA: 09/12/25 STATUS: COMP REQ : [id number] RECD: 09/12/[address]: Kelsey Keith MD COMP: 09/12/25 ENTERED: 09/12/[address] [facility] [address]: ORDERED: Met Prof Fast, AST, ALT, Lipid Panel, Vitamin D 25-OH, Free T4, TSH Test Result Flag Reference Sodium 141 135-145 mmol/L Potassium 4.6 3.3-5.1 mmol/L CL 107 96-108 mmol/L CO2 26 22-29 mmol/L Gap 13 12-20 BUN 16 9-16 mg/dL Creat 0.73 0.5-1.4 mg/dL eGFR > 60 Chronic Kidney Disease: Estimated GFR < 60 mL/min/1.73m2 Severe Kidney Disease: Estimated GFR < 15 mL/min/1.73m2 FBS 104 H 60-99 mg/dL A fasting glucose from 100-125 mg/dl is considered impaired (pre-diabetes). CA 9.8 8.4-10.2 mg/dL AST (GOT) 28 5-31 U/L ALT (GPT) 29 0-31 U/L Triglyceride 128 <150 mg/dL Desirable Triglyceride: less than 150 mg/dL Borderline High Triglyceride 150-199 mg/dL High Triglyceride: 200-499 mg/dL Very High Triglyceride: greater than or equal to 5OO mg/dL Cholesterol 205 H <200 mg/dL Desirable Cholesterol: less than 200 mg/dL Borderline High Cholesterol: 200-239 mg/dL High Cholesterol: greater than 239 mg/dL LDL Calculated 121 H <100 mg/dL Desirable LDL: less than 100 mg/dL Near Optimal/Above Optimal LDL: 110-129 mg/dL Borderline High LDL: 130-159 mg/dL High LDL: 160-189 mg/dL Very High LDL: greater than or equal to 190 mg/dL HDL 59 >40 mg/dL Desirable HDL: greater than 40 mg/dL Note: This HDL assay may give artificially low results in patients with liver disease. Vitamin D 25-OH 81.8 >30 ng/mL Health Based Reference Values* < 20 ng/mL Deficient 20-30 ng/mL Insufficient > 30 ng/mL Sufficient *Mena FARNSWORTH. N Engl J Med. 2007;357:266-280 There is no well-established upper level of normal vitamin D levels. Some laboratories use 50 ng/mL as an upper limit of normal. However, toxicity is patient-dependent and may occur at any level. Careful correlation with the patient's presentation is necessary and, if there is concern for vitamin D toxicity, treatment should be considered irrespective of the serum level. Care must be taken in interpreting Vitamin D results from different laboratories and methodologies. Published data demonstrated that results from patients undergoing hemodialysis may show a negative bias when tested with various automated 25-OH vitamin D assays when compared to LC-MS/MS. When testing samples from patients whose predominant form of Vitamin D is Vitamin D2, such as patients receiving Vitamin D2 supplementation, results that are subtherapeutic should be confirmed with another method such as LC-MS/MS. Free T4 1.12 0.71-1.85 ng/dL TSH 3rd Gen. 0.49 0.32-4.0 uIU/mL Laboratory Tests 09/12/25 08:46 Estimat Average Glucose 114 Hemoglobin A1c % 5.6 Coding Level of Care Code Est Pt Level 4 (59288) Diagnoses Essential hypertension I10 Mixed dyslipidemia E78.2 Acquired hypothyroidism E03.9 Primary insomnia F51.01 Insomnia type: primary Morbid obesity with BMI of 40.0-44.9, adult E66.01; Z68.41 Assessment & Plan Assessment & Plan (1) Essential hypertension: Code(s): I10 - Essential (primary) hypertension Category: Medical Plan: Blood pressure elevated on today's visit. Will continue on metoprolol succinate ER 50 mg daily. Stressed importance of following a low-salt diet and getting regular exercise. Will check again in 4 weeks (2) Mixed dyslipidemia: Code(s): E78.2 - Mixed hyperlipidemia Category: Medical Plan: Fasting lipids showed mildly elevated LDL cholesterol with normal triglycerides and HDL cholesterol as well total cholesterol levels. Continued on atorvastatin 20 mg every other day in addition to adherence to healthy eating habits and getting regular exercise. (3) Acquired hypothyroidism: Code(s): E03.9 - Hypothyroidism, unspecified Category: Medical Plan: Thyroid levels are within normal limits, continued on current dose of levothyroxine 137 mcg daily in the morning an hour before breakfast (4) Insomnia: Code(s): G47.00 - Insomnia, unspecified Category: Medical Qualifiers: Insomnia type: primary Qualified Code(s): F51.01 - Primary insomnia Plan: Refilled prescription for eszopiclone 3 mg to take 1 tablet at bedtime as needed for difficulty sleeping. Patient tolerating medication well (5) Morbid obesity with BMI of 40.0-44.9, adult: Code(s): E66.01 - Morbid (severe) obesity due to excess calories; Z68.41 - Body mass index [BMI] 40.0-44.9, adult Category: Medical Plan: Continue with adherence to healthy eating habits and doing regular exercise. Will try phentermine 15 mg per tablet to take 1 tablet 2 hours after breakfast. Thirty tablets prescribed with no refill, discussed possible side effects of medication which may include headache, palpitation, chest pain to discontinue taking medicine if any of these develops. Follow-up in 4 weeks Medications: New phentermine must administer 2 hours after breakfast 15 mg PO DAILY 30 caps 0RF Refilled eszopiclone (Lunesta) 3 mg PO BEDTIME PRN 30 tabs 0RF insomnia
--- OUTSIDE RECORDS SUMMARY | 2025-09-17 19:24 | XMS_ITS | Patient Health Record ---
Author Organization [facility] Jose ghassan Lopez Address [address] [facility] [place] [address] Care Team Providers Care Bill Sorter Name Role Phone Sagar ARAUJO, Kelsey Blackmon Primary Care Provider Un available Black, Sarahi Unavailable [phone] Reason For Referral No Information Medications Medication [...] Insured Coverage Start Date Coverage End Date [facility] Others [address] [place] [address] [id number] Arnoldo Austin Spouse - patient is the spouse of the insured Medical (General) History Medical History History ICD Code asthma back, hip, knee pain broken bones chicken pox headaches/migraines sinus conditions thyroid disorder Surgical History Surgery Date(Month/Year) section 1995 tonsillectomy disc surgery 2007
--- OUTSIDE RECORDS SUMMARY | 2025-09-17 19:24 | XMS_ITS | Data Portability ---
Author Organization [place] [facility], Allergy Address [address] [address] Care Team Providers Care Records Officer Name Role Phone MELISSA YIN Primary Care [...] the floor of the middle cranial fossa. [email or web address] Not available 04/03/2024 15:38:35 04/24/2024 04/24/2024 Left [...] pressure and blockage sensation in this ear. [email or web address] Not available 04/24/2024 16:15:00 07/16/2024 07/16/2024 Patient [...] also can have her be evaluated in [place] for second opinion if she would like [...] 0.1 % ear drops,suspe nsion 2023 024 [facility] #[id number], [address] [facility], [place], [address], 14:07:46 Patient TargetsNo targets recorded. Patient InstructionsNo instructions recorded. Reason for Referral None Reported. Results Created Date Observation Date Name Description Value Unit Range Abnormal Flag Note LastModifiedBy Organization Detail LastModifiedTime 03/27/20 24 03/26/2024 MRI, brain + brain stem, w/wo contr ast [facility] Access ion Number : [id number] Patianitha t Name: Rosamaria Neala moris Record Number : [id number] Date of : 1964 Date of Exam: 2023 Referr ing Physic marco a: Susan Haskins re Ear Nose [address] [place] [address] Exam: MR Brain (C-/C+ ) CPT 03665 [facility] CPT 30631 INDICA TION / CLINIC AL QUESTI ON: [...] or abnorm al enhanc ement in the product management internship al audito ry canals or cerebe llopon [...] , and also layers in the left kelp gatherer al audito ry canal. There is periph [...] , and layeri ng in the left kelp gatherer al audito ry canal, concer rhianna for [...] ms. Electr onical ly Signed By: Angella soler[address] [facility] ([facility]) [address], [place], [address], 03/31/2024 12:08:08 04/28/20 audio gram No observ ation record ed. [email or web address] Not Available 10/2023 16:02:48 06/18/20 24 11/21/2023 [...] Organization Details Recorded Time Deviated nasal septum 163229608 Active 2020 Deviated nasal septum; Note: Date Diagnose d: 1 3:25 PM (J34.2) Not Available [facility] 4 03:06:51 Refracto ry migraine 040363755 Active 2020 Other migraine , intracta ble, without status migraino zoey; Note: Date Diagnose d: 1 3:25 PM (G43.819 ) Not Available [facility] 4 03:06:52 Allergic rhinitis 13572487 Active 2020 Other allergic rhinitis ; Note: Date Diagnose d: 1 3:25 PM (J30.89) Not Available [facility] 4 03:06:50 Abnormal auditory percepti on 55332420 Active 2020 Other abnormal auditory percepti ons, bilatera l; Note: Date Diagnose d: 1 3:13 PM (H93.293 ) Not Available [facility] 4 03:06:52 Bilatera l tinnitus 87548214691 02 Active 2020 Tinnitus , bilatera l; Note: Date Diagnose d: 1 3:13 PM (H93.13) Not Available [facility] 4 03:06:51 Chronic serous otitis media of left ear 061620292 Completed 202310/16/2024 Chronic serous otitis media, left ear; Note: Date Diagnose d: 4 3:59 PM (H65.22) TUCKER HASKINS MD [address] [facility],[place] [address], [place], [address] , [facility] - [facility] 4 15:09:48 Tobacco user 178819121 Active 2023 Tobacco use; Note: Date Diagnose d: 4 5:09 PM (Z72.0) Not Available [facility] 4 03:06:52 Otorrhea of left ear 28283544905 43621 Completed 202310/16/2024 TUCKER HASKINS MD [address] [facility],[place] [address], [place], [address] , [facility] - [facility] 4 15:09:56 Referred otalgia of left ear 59401668135 58203 Active 2023 TUCKER HASKINS MD [address] [facility],[place] [address], [place], [address] , [facility] - [facility] 4 16:12:54 Pain of temporom andibula r joint 54225664 Active 2023 TUCKER HASKINS MD [address] [facility],[place] [address], [place], [address] , [facility] 4 16:12:59 Abnormal auditory percepti on 85222356 Active 2023 LÁZARO LOCKHART MD [address] [facility],[place] [address], [place], [address] , [facility] - [facility] 4 14:17:27 Problem Notes None recorded. Procedures Surgical History Date Name Laterality Status Provider Name and Address Organization Details Recorded Time 10/16/20 24 Air only Audio - 64986 completed CATHY FOX [address] [facility],[place] [address], [place], [address], [facility] - [facility] 10/16/2024 14:22:12 10/16/20 24 Tympanometry - 49876 completed CATHY FOX [address] [facility],[place] [address], [place], [address], [facility] - [facility] 10/16/2024 14:22:09 04/24/20 24 Air only Audio - 30409 completed DAVID HERNANDEZ, [facility] [address] [facility] [address], [place], [address], [place] - [facility] 04/24/2024 15:50:55 04/24/20 24 Tympanometry - 55043 completed DAVID HERNANDEZ, [facility] [address] [facility] [address], [place], [address], [place] - [facility] 04/24/2024 15:51:00 04/03/20 24 Cerumen removal with microscope left completed TUCKER HASKINS MD [address] [facility],[place] [address], [place], [address], [place] - [facility] 04/03/2024 15:39:41 section completed Cristina Spangler [place] [facility] 04/03/2024 15:07:34 tonsillectomy completed Cristina Spangler [place] [facility] 04/03/2024 15:07:53 Imaging Results None recorded. Procedure [...] mg tablet 2020 active Medicati on ID: 422807 B rand Name: pramipex ole Send Method: [...] mg tablet 2020 active Medicati on ID: 834561 B rand Name: furosemi de Send Method: E-Prescr ibed Sub s Allowed: subs OK Medic ationGen ericName : furosemi de Not Available Not Available Not Available azelastin e 137 mcg (0.1 %) nasal spray Inhale 2 spray twice a day as directed 2023 active Medicati on ID: [id number] D uration Value: 30 Brand Name: azelasti [...] aerosol inhaler 2020 active Medicati on ID: 085963 B rand Name: Symbicor t Send Method: E-Prescr ibed Sub s Allowed: subs OK Medic ationGen ericName : Symbicor t Not Available Not Available Not Available diclofena c 1 % topical gel APPLY 2 GRAMS TO THE AFFECTED AREA(S) BY TOPICAL ROUTE 4 TIMES PER DAY active Not Available Not Available No t Available cetirizin e 10 mg capsule active Medicati on ID: 564296 B rand Name: cetirizi ne Send Method: E-Prescr ibed Sub s Allowed: subs OK Medic ationGen ericName : cetirizi ne Not Available Not Available Not Available Flonase Allergy Relief 50 mcg/actua tion nasal spray,zoey pension active Medicati on ID: 771765 B rand Name: Flonase Allergy Relief S end Method: E-Prescr ibed Sub s Allowed: subs OK Medic ationGen ericName : Flonase Allergy Relief Not Available Not Available Not Available Vitals Date Recorded Body height Body mass index (BMI) Body weight Provider Name and Address Organization Details Last Updated DateTime 04/03/2024 167.64 cm 37.1 kg/m2 979212.25 g Cristina Spangler [place] - [facility] 04/03/2024 15:12:35 Date Recorded Body height Body mass index (BMI) Body weight Provider Name and Address Organization Details Last Updated DateTime 04/24/2024 167.64 cm 37.1 kg/m2 415656.25 g Cristina Spangler [facility] 04/24/2024 15:24:44 Date Recorded Body height Body weight Provider Name and Address Organization Details Last Updated DateTime 10/16/2024 167.64 cm 995064.25 g Cristina Spangler [facility] 10/16/2024 14:07:25 Social History None recorded. Functional [...] Note [id number] TUCKER HASKINS MD [facility] [address] [address] 04/03/2024 14:33:30 04/03/2024 15:36:56 Otorrhea of left ear 7565907050 924167 H92.12 [id number] TUCKER HASKINS MD [facility] [address] [address] 04/24/2024 14:47:28 04/24/2024 16:12:28 Abnormal auditory perception 60972976 H93.293 Right Ear:Normal hearing.Ty pe A tympanogra m.Left Ear:Normal hearing.Ty pe A tympanogra m, rounded. Referred o talgia of left ear 5792538034 248230 H92.02 The patient complains of persistent chronic [...] disorders was provided. Pain of temporomandibular joint 15837351 M26.622 [id number] LÁZARO LOCKHART MD [facility] [address] [address] 07/16/2024 13:57:29 07/16/2024 14:19:25 Abnormal auditory perception 76455877 H93.292 Allergic rhinitis 173598 04 J30.9 [id number] TUCKER HASKINS MD [facility] [address] [address] 10/16/2024 13:53:46 10/16/2024 15:10:59 Abnormal auditory perception 85839238 H93.292 Right Ear:Did not test Left Ear:Essent ially normal hearing.Ty pe A tympanogra m, rounded. Referred o talgia of left ear 6198036706 149784 H92.02 Pain of temporomandibular joint 54760502 M26.622 Health Concerns Section Related Observation LastModified by Organization Detai ls LastModified Time None Recorded Concern Status LastModified by Organization Details LastModified Time None Recorded Advance Directives Directive None Recorded Payers Insurance Date Sequence Insurance Name Policy Number Policy Valenzuela Covered Member ID Valenzuela Member ID Guarantor Name 10/16/2024 1 [employer] [id number] Arnoldo Austin [id number] BF Rosamaria Austin Notes Date Note Type [...] been foul-smelling recently. TUCKER HASKINS MD [address] [facility],[address], [address], [facility] 04/03/2024 15:40:03 04/24/2024 text/html Patient with history [...] topical Ciprodex drops. TUCKER HASKINS MD [address] [facility],[address], [address], [facility] 04/24/2024 16:16:13 07/16/2024 text/html ROS as noted [...] for her knees. LÁZARO DENIS MD [address] [facility] [address], [place], [address], [place] - [facility] 07/16/2024 14:18:06 10/16/2024 text/html Patient with history [...] recommended use of Flonase TUCKER HASKINS MD [address] [place] [address], [place], [address], [facility] - [facility] 10/16/2024 15:11:34 OBGyn Episode No OBEpisode recorded.
== END 2025-09-17 16:00 | disposition home or self-care (01) ==
LOC: HO.HMCC 14:00
PROVIDERS: PCP Internal Medicine; Visit Provider Internal Medicine
DX: I10 Essential (primary) hypertension (principal); E78.2 Mixed hyperlipidemia; E66.01 Morbid (severe) obesity due to excess calories; Z68.41 Body mass index [BMI] 40.0-44.9, adult; E03.9 Hypothyroidism, unspecified; F51.01 Primary insomnia

== ENCOUNTER 2025-10-15 13:37 | Outpatient (AMB) | payer BC, SELFPAY ==
[2025-10-15 13:53] VITALS: BP 130/80; PULSE 83; RESP 16; TEMP 36.5; O2SAT 96; BMI 41.5
--- NOTE | 2025-10-15 13:53 | MHC.PC.OV ---
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 Allergies amoxicillin Allergy (Severe, Verified 10/15/25 14:10) Swelling of throat hayfever Allergy (Uncoded 10/15/25 14:10) Rash Medication List - Last Reconciled 10/15/25 by Kelsey Keith MD albuterol sulfate 90 mcg/actuation 1 inh inhalation QID PRN atorvastatin 20 mg PO .qod eszopiclone (Lunesta) 3 mg PO BEDTIME PRN ibuprofen 800 mg PO Q12H PRN levothyroxine 137 mcg PO QAM metoprolol succinate ER 50 mg PO DAILY omeprazole 20 mg PO DAILY phentermine 15 mg PO DAILY Tobacco use date assessed: 10/15/25 Dental Screening Dental Screen Date: 10/15/25 Did you have a dental visit in the last 12 months?: Yes Did you have a dental problem in the last 6 months where you did not have access to dental care?: No Was dental information given to patient?: Patient has dentist HPI 4 week follow up HPI Details The patient is a 60 year old female presenting for a follow-up on weight management . She was started on phentermine at her last visit. She reports it has helped to slightly decrease her appetite and has given her more energy, without causing side effects such as headaches. The patient has not weighed herself at home, but her weight in clinic is unchanged. Previously, she had tried Ozempic for approximately eight weeks, which she obtained from another source, but did not lose any weight despite exercising and not overeating. She discontinued Ozempic as she felt it was bothering her eyes. Her thyroid function was previously confirmed to be normal. The patient also complaining of sinus pressure and thick nasal discharge. No relief with OTC Cold remedies . She has a history of azithromycin (Z-Keyur) being ineffective for her sinus infections. The patient reports a newly developed allergy to amoxicillin, which caused her face and throat to swell after taking it for dental prophylaxis following a past knee surgery. This allergy was not previously documented in her chart. [facility] Medical History Morbid obesity with BMI of 40.0-44.9, adult Essential hypertension Mixed dyslipidemia Acquired hypothyroidism Multinodular thyroid Pulmonary nodule Mild intermittent asthma Allergic rhinitis Nicotine dependence, cigarettes, uncomplicated Migraine Chronic GERD Osteoarthritis of right knee Insomnia Peroneal neuropathy Chronic left mastoiditis Deviated nasal septum Surgical History Hx of foot surgery History of section History of tonsillectomy History of carpal tunnel surgery of right wrist History of esophagogastroduodenoscopy (EGD) (~2017) History of thoracic surgery (~2006) Family History Father Heart disease Emphysema, unspecified Mother HTN (hypertension) Hyperlipidemia Paternal Aunt Breast cancer Paternal Uncle Cancer of prostate Brother No problems noted. Brother No problems noted. Daughter No problems noted. Social History Housing: House Alcohol intake: current Patient Tobacco Use Status: Current everyday Tobacco user Tobacco use type: Cigarette Cigarette Packs Per Day: 1 Years Smoked: 42 (onset 14yo, 1ppd x 42yrs, 40pyh) e-Cigarette/Vaping Use: Never Used Second Hand Smoke Exposure: No Current occupational status: employed Current occupation: assisting cook Current occupational exposures/hazards: No Cognitive needs: No Hearing needs: No Vision needs: No Questionnaire PHQ-9 Over the last 2 weeks, how often have you been bothered by any of the following problems? 1. Little interest or pleasure in doing things: more than half the days 2. Feeling down, depressed, or hopeless: several days 3. Trouble falling or staying asleep, or sleeping too much: more than half the days 4. Feeling tired or having little energy: more than half the days 5. Poor appetite or overeating: not at all 6. Feeling bad about yourself - or that you are a failure or have let yourself or your family down: not at all 7. Trouble concentrating on things, such as reading the newspaper or watching television: not at all 8. Moving or speaking so slowly that other people could have noticed. Or the opposite - being so fidgety or restless that you have been moving around a lot more than usual: not at all 9. Thoughts that you would be better off or of hurting yourself in some way: not at all Total score: 7 Depression Screening Interpretation: Negative Depression Screening Done: Yes Source: Developed by Drs. Flynn Gotti, Samantha Jolley, Sebastián Childress and colleagues, with an educational collette from [employer]. Thrive Questionnaire Date Thrive assessed: 12/11/24 I am a: Patient What is your living situation today?: I have a steady place to live Within the past 12 months, did the food you bought not last and you didn't have the money to get more?: Never true Within the past 12 months, did you worry whether your food would run out before you got money to buy more?: Never true Do you have trouble paying for medicines?: No Do you have trouble getting transportation to medical appointments?: No Do you have trouble paying your heating and electricity bill?: No Do you have trouble taking care of your child, family member or friend?: No Do you have trouble with day-to-day activities such as bathing, preparing meals, shopping, managing finances, etc.?: No Are you currently unemployed and looking for a job?: No Are you interested in more education?: No Please select the resources that you would like help with: None Currently or been in a relationship where the following occur: I choose not to answer THRIVE Score: 0 AUDIT C Alcohol Use Questionnaire (AUDIT-C) 1. How often do you have a drink containing alcohol?: 2-3 times a week 2. How many drinks containing alcohol do you have on a typical day when you are drinking?: 3 or 4 3. How often do you have six or more drinks on one occasion?: Monthly Total Score: 6 ALESSIO-7 AMB Questionnaire ALESSIO-7 Date ALESSIO - 7 assessed: 12/18/24 Feeling nervous, anxious, or on edge: 0 = Not at all Not being able to stop or control worryin = Not at all Worrying too much about different things: 0 = Not at all Trouble relaxin = Not at all Being so restless that it is hard to sit still: 0 = Not at all Becoming easily annoyed or irritable: 0 = Not at all Feeling afraid as if something awful might happen: 0 = Not at all Total ALESSIO-7 score (0-4 normal; 5-9 mild; 10-14 moderate; 15-21 severe): 0 Source: Developed by Drs. Flynn Gotti, Samantha Jolley, Sebastián Childerss and colleagues, with an educational collette from [employer]. Review of Systems Const All systems reviewed & are unremarkable except as noted in HPI and below Eyes Reports no additional complaints ENT Reports as per HPI Card Reports no additional complaints Resp Reports no additional complaints GI Reports no additional complaints Physical exam (Primary Care) Vital Signs: Last Vital Signs Temp 97.7 F 10/15/25 13:53 Pulse 83 10/15/25 13:53 Resp 16 10/15/25 13:53 BP 130/80 10/15/25 13:53 Pulse Ox 96 10/15/25 13:53 Oxygen Delivery Method Room Air 10/15/25 13:53 BMI result Body Mass Index 41.5 BMI Assessment/Plan discussion: High BMI High, discussed plan: lifestyle, weight reduction, dietary and physical activity Tobacco/Smoking Status: Tobacco use Status Tobacco use date assessed 10/15/25 10/15/25 13:58 Patient Tobacco Use Status Current everyday Tobacco 10/15/25 13:58 Tobacco use type Cigarette 10/15/25 13:58 e-Cigarette/Vaping Use Never Used 10/15/25 13:58 Are you ready to quit: No Tobacco cessation counseling provided: Yes PHQ-9: PHQ-9 Score PHQ-9: Total score 7 10/15/25 14:03 Depression Screening Interpretation: Negative Thrive Assessment: Date of Thrive Assessment Date Thrive assessed 12/11/24 10/15/25 13:58 Currently or been in a relationship where the following occur: I choose not to answer Const General: comfortable and no acute distress [facility] General nose exam: Normal external nose present and No nasal discharge present Mouth: Normal oral and palatal mucosa present and moist mucous membranes Eyes General: appearance normal, both eyes and all related structures Neck Neck: Yes full ROM, Yes no lymphadenopathy and Yes supple Resp Effort & Inspection: normal respiratory effort and able to speak in complete sentences Auscultation: clear to auscultation bilaterally Cardio Rate: regular rate Rhythm: regular rhythm Heart sounds: S1 normal heart sound present and S2 normal heart sound present GI Inspection: Yes normal to inspection Palpation (GI): Soft to palpation, nontender, no guarding and no masses Skin General skin exam: no rashes or lesions noted Results Reviewed Results Reviewed: Name: Rosamaria Austin Age/Sex: 60/F : 1965 Unit#: [id number] Attend Dr: Kelsey Keith MD Re09/12/25 Status: DEP [facility] Dis[facility]: SPEC : [id number] SANTANA: 09/12/25 STATUS: COMP REQ : [id number] RECD: 09/12/[address]: Kelsey Keith MD COMP: 09/12/25 ENTERED: 09/12/[address]: ORDERED: Met Prof Fast, AST, ALT, Lipid Panel, Vitamin D 25-OH, Free T4, TSH Test Result Flag Reference Sodium 141 135-145 mmol/L Potassium 4.6 3.3-5.1 mmol/L CL 107 96-108 mmol/L CO2 26 22-29 mmol/L Gap 13 12-20 BUN 16 9-16 mg/dL Creat 0.73 0.5-1.4 mg/dL eGFR > 60 Chronic Kidney Disease: Estimated GFR < 60 mL/min/1.73m2 Severe Kidney Disease: Estimated GFR < 15 mL/min/1.73m2 FBS 104 H 60-99 mg/dL A fasting glucose from 100-125 mg/dl is considered impaired (pre-diabetes). CA 9.8 8.4-10.2 mg/dL AST (GOT) 28 5-31 U/L ALT (GPT) 29 0-31 U/L Triglyceride 128 <150 mg/dL Desirable Triglyceride: less than 150 mg/dL Borderline High Triglyceride 150-199 mg/dL High Triglyceride: 200-499 mg/dL Very High Triglyceride: greater than or equal to 5OO mg/dL Cholesterol 205 H <200 mg/dL Desirable Cholesterol: less than 200 mg/dL Borderline High Cholesterol: 200-239 mg/dL High Cholesterol: greater than 239 mg/dL LDL Calculated 121 H <100 mg/dL Desirable LDL: less than 100 mg/dL Near Optimal/Above Optimal LDL: 110-129 mg/dL Borderline High LDL: 130-159 mg/dL High LDL: 160-189 mg/dL Very High LDL: greater than or equal to 190 mg/dL HDL 59 >40 mg/dL Desirable HDL: greater than 40 mg/dL Note: This HDL assay may give artificially low results in patients with liver disease. Vitamin D 25-OH 81.8 >30 ng/mL Health Based Reference Values* < 20 ng/mL Deficient 20-30 ng/mL Insufficient > 30 ng/mL Sufficient *Mena FARNSWORTH. N Engl J Med. 2007;[id number]:266-280 There is no well-established upper level of normal vitamin D levels. Some laboratories use 50 ng/mL as an upper limit of normal. However, toxicity is patient-dependent and may occur at any level. Careful correlation with the patient's presentation is necessary and, if there is concern for vitamin D toxicity, treatment should be considered irrespective of the serum level. Care must be taken in interpreting Vitamin D results from different laboratories and methodologies. Published data demonstrated that results from patients undergoing hemodialysis may show a negative bias when tested with various automated 25-OH vitamin D assays when compared to LC-MS/MS. When testing samples from patients whose predominant form of Vitamin D is Vitamin D2, such as patients receiving Vitamin D2 supplementation, results that are subtherapeutic should be confirmed with another method such as LC-MS/MS. Free T4 1.12 0.71-1.85 ng/dL TSH 3rd Gen. 0.49 0.32-4.0 uIU/mL TSH 3rd Generation ([facility]) Laboratory Tests 09/12/25 08:46 Estimat Average Glucose 114 Hemoglobin A1c % 5.6 Coding Level of Care Code Est Pt Level 4 (07785) Diagnoses Mixed dyslipidemia E78.2 Morbid obesity with BMI of 40.0-44.9, adult E66.01; Z68.41 Acquired hypothyroidism E03.9 Essential hypertension I10 Acute sinusitis J01.90 Assessment & Plan Assessment & Plan (1) Mixed dyslipidemia: Code(s): E78.2 - Mixed hyperlipidemia Category: Medical Plan: Latest fasting lipid results reviewed with patient. Will continue on current dose of atorvastatin 20 mg to take 1 tablet every other day. Reinforced importance of adhering to healthy eating habits and getting regular exercise. Repeat another fasting lipid panel in 3 months (2) Morbid obesity with BMI of 40.0-44.9, adult: Code(s): E66.01 - Morbid (severe) obesity due to excess calories; Z68.41 - Body mass index [BMI] 40.0-44.9, adult Category: Medical Plan: The patient is tolerating the starting dose of phentermine well, with decreased appetite and increased energy, though no weight change was noted. We will increase the dose of phentermine and send a prescription for 30 tablets with one refill to [facility]. I educated the patient that phentermine is a short-term treatment, typically for 3-6 months, and should be combined with diet and exercise to build lasting habits. (3) Acquired hypothyroidism: Code(s): E03.9 - Hypothyroidism, unspecified Category: Medical Plan: Latest thyroid levels are within normal limits, continue with current dose of levothyroxine at 137 mcg daily in a.m. (4) Essential hypertension: Code(s): I10 - Essential (primary) hypertension Category: Medical Plan: Blood pressure at goal of less than 130/80. Continue with current medication. Reinforced importance of following a low sodium diet, getting regular exercise, and lowering stress levels. (5) Acute sinusitis: Code(s): J01.90 - Acute sinusitis, unspecified Plan: Given her history of Z-keyur failure, a prescription for doxycycline will be sent to [facility]. Orders: Orders Basic Metabolic Panel Fasting 12/05/25 I10 - Essential (primary) hypertension, E78.2 - Mixed hyperlipidemia, E03.9 - Hypothyroidism, unspecified, E66.01 - Morbid (severe) obesity due to excess calories, Z68.41 - Body mass index [BMI] 40.0-44.9, adult, Z78.0 - Asymptomatic menopausal state Lipid Panel 12/05/25 I10 - Essential (primary) hypertension, E78.2 - Mixed hyperlipidemia, E03.9 - Hypothyroidism, unspecified, E66.01 - Morbid (severe) obesity due to excess calories, Z68.41 - Body mass index [BMI] 40.0-44.9, adult, Z78.0 - Asymptomatic menopausal state Vitamin D 25-OH Total 12/05/25 I10 - Essential (primary) hypertension, E78.2 - Mixed hyperlipidemia, E03.9 - Hypothyroidism, unspecified, E66.01 - Morbid (severe) obesity due to excess calories, Z68.41 - Body mass index [BMI] 40.0-44.9, adult, Z78.0 - Asymptomatic menopausal state Triiodothyronine T3 Free 12/05/25 I10 - Essential (primary) hypertension, E78.2 - Mixed hyperlipidemia, E03.9 - Hypothyroidism, unspecified, E66.01 - Morbid (severe) obesity due to excess calories, Z68.41 - Body mass index [BMI] 40.0-44.9, adult, Z78.0 - Asymptomatic menopausal state Alanine Aminotransferase 12/05/25 I10 - Essential (primary) hypertension, E78.2 - Mixed hyperlipidemia, E03.9 - Hypothyroidism, unspecified, E66.01 - Morbid (severe) obesity due to excess calories, Z68.41 - Body mass index [BMI] 40.0-44.9, adult, Z78.0 - Asymptomatic menopausal state Aspartate Amino Transferase 12/05/25 I10 - Essential (primary) hypertension, E78.2 - Mixed hyperlipidemia, E03.9 - Hypothyroidism, unspecified, E66.01 - Morbid (severe) obesity due to excess calories, Z68.41 - Body mass index [BMI] 40.0-44.9, adult, Z78.0 - Asymptomatic menopausal state Hemoglobin A1c 12/05/25 I10 - Essential (primary) hypertension, E78.2 - Mixed hyperlipidemia, E03.9 - Hypothyroidism, unspecified, E66.01 - Morbid (severe) obesity due to excess calories, Z68.41 - Body mass index [BMI] 40.0-44.9, adult, Z78.0 - Asymptomatic menopausal state Thyroid Stimulating Hormone 12/05/25 I10 - Essential (primary) hypertension, E78.2 - Mixed hyperlipidemia, E03.9 - Hypothyroidism, unspecified, E66.01 - Morbid (severe) obesity due to excess calories, Z68.41 - Body mass index [BMI] 40.0-44.9, adult, Z78.0 - Asymptomatic menopausal state Free T4 (Free Thyroxine) 12/05/25 I10 - Essential (primary) hypertension, E78.2 - Mixed hyperlipidemia, E03.9 - Hypothyroidism, unspecified, E66.01 - Morbid (severe) obesity due to excess calories, Z68.41 - Body mass index [BMI] 40.0-44.9, adult, Z78.0 - Asymptomatic menopausal state Medications: New phentermine must administer 2 hours after breakfast 30 mg PO DAILY 30 caps 1RF E78.2 - Mixed hyperlipidemia, E66.01 - Morbid (severe) obesity due to excess calories, Z68.41 - Body mass index [BMI] 40.0-44.9, adult doxycycline monohydrate 100 mg PO BID 20 caps 0RF 10 days Discontinued phentermine must administer 2 hours after breakfast Discontinued Reason: Doctor's Order 15 mg PO DAILY 30 caps 0RF
--- OUTSIDE RECORDS SUMMARY | 2025-10-15 17:52 | XMS_ITS | Data Portability ---
Author Organization [place] - [facility], Allergy Address [address] [address] Care Team Providers Care Meeting Facilitator Name Role Phone MELISSA YIN Primary Care [...] the floor of the middle cranial fossa. [email or web address] Not available 04/03/2024 15:38:35 04/24/2024 04/24/2024 Left [...] pressure and blockage sensation in this ear. [email or web address] Not available 04/24/2024 16:15:00 07/16/2024 07/16/2024 Patient with history of allergy presents for persistent sensation of left ear blockage and fullness. She had extensive workup with Dr. Hasikns including a CT and MRI. She had [...] also can have her be evaluated in [place] for second opinion if she would like [...] periauricular symptoms. She may follow-up as needed [email or web address] Not available 10/16/2024 15:11:12 Plan of Treatment Reminders Order Date Submit Date Provider Last Modified By Organization Details Last Modified Time Details Appointments None recorded. Lab None recorded. Referral None recorded. Procedures None recorded. Surgeries None recorded. Imaging None recorded. Medication Orders ciprofloxac in 0.3 %-dexametha sone 0.1 % ear drops,suspe nsion 2023 024 [facility][id number], [address] [facility], [place], [address], 14:07:46 Patient TargetsNo targets recorded. Patient InstructionsNo instructions recorded. Reason for Referral None Reported. Results Created Date Observation Date Name Description Value Unit Range Abnormal Flag Note LastModifiedBy Organization Detail LastModifiedTime 03/27/20 24 03/26/2024 MRI, brain + brain stem, w/wo contr ast [facility] Access ion Number : [id number] Patianitha t Name: Rosamaria Neala moris Record Number : [id number] Date of : 1964 Date of Exam: 2023 Referr ing Physic marco a: Susan Haskins re Ear Nose [address] [place] [address] Exam: MR Brain (C-/C+ ) CPT 58061 [facility] CPT 69047 INDICA TION / CLINIC [facility] ON: [...] or abnorm al enhanc ement in the help desk intern al audito ry canals or cerebe [...] , and also layers in the 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 There is periph [...] , and layeri ng in the left hardwood floor refinisher al audito ry canal, concer rhianna for [...] ms. Electr onical ly Signed By: Angella soler[address] [facility] ([facility]) [address], [place], [address], 03/31/2024 12:08:08 04/28/20 audio gram No observ ation record ed. [email or web address] Not Available 10/2023 16:02:48 06/18/20 24 11/21/2023 [...] Organization Details Recorded Time Deviated nasal septum 513924594 Active 2020 Deviated nasal septum; Note: Date Diagnose d: 1 3:25 PM (J34.2) Not Available [facility] 4 03:06:51 Refracto ry migraine 838907481 Active 2020 Other migraine , intracta ble, without status migraino zoey; Note: Date Diagnose d: 1 3:25 PM (G43.819 ) Not Available [facility] 4 03:06:52 Allergic rhinitis 06165561 Active 2020 Other allergic rhinitis ; Note: Date Diagnose d: 1 3:25 PM (J30.89) Not Available [facility] 4 03:06:50 Abnormal auditory percepti on 48829840 Active 2020 Other abnormal auditory percepti ons, bilatera l; Note: Date Diagnose d: 1 3:13 PM (H93.293 ) Not Available [facility] 4 03:06:52 Bilatera l tinnitus 03386849815 02 Active 2020 Tinnitus , bilatera l; Note: Date Diagnose d: 1 3:13 PM (H93.13) Not Available [facility] 4 03:06:51 Chronic serous otitis media of left ear 207089058 Completed 202310/16/2024 Chronic serous otitis media, left ear; Note: Date Diagnose d: 4 3:59 PM (H65.22) TUCKER HASKINS MD [address] [facility],[place] [address], [place], [address] , [facility] - [facility] 4 15:09:48 Tobacco user 839368468 Active 2023 Tobacco use; Note: Date Diagnose d: 4 5:09 PM (Z72.0) Not Available [facility] 4 03:06:52 Otorrhea of left ear 36218664575 72754 Completed 202310/16/2024 TUCKER HASKINS MD [address] [facility],[place] [address], [place], [address] , [facility] - [facility] 4 15:09:56 Referred otalgia of left ear 71509308298 14894 Active 2023 TUCKER HASKINS MD [address] [facility],[place] [address], [place], [address] , [facility] - [facility] 4 16:12:54 Pain of temporom andibula r joint 79413139 Active 2023 TUCKER HASKINS MD [address] [facility],[place] [address], [place], [address] , [facility] - [facility] 4 16:12:59 Abnormal auditory percepti on 14564484 Active 2023 LÁZARO LOCKHART MD [address] [facility],[place] [address], [place], [address] , [facility] - [facility] 4 14:17:27 Problem Notes None recorded. Procedures Surgical History Date Name Laterality Status Provider Name and Address Organization Details Recorded Time 10/16/20 24 Air only Audio - 13231 completed CATHY FOX [address] [facility],[place] [address], [place], [address], [facility] - [facility] 10/16/2024 14:22:12 10/16/20 24 Tympanometry - 32426 completed CATHY FOX [address] [facility],[place] [address], [place], [address], [facility] - [facility] 10/16/2024 14:22:09 04/24/20 24 Air only Audio - 86942 completed DAVID HERNANDEZ, [facility] [address] [facility] [address], [place], [address], [place] - [facility] 04/24/2024 15:50:55 04/24/20 24 Tympanometry - 01027 completed DAVID HERNANDEZ, [facility] 100 [facility] [address], [place], [address], [place] - [facility] 04/24/2024 15:51:00 04/03/20 24 Cerumen removal with microscope left completed TUCKER HASKINS MD [address] [facility],[place] [address], [place], [address], [place] - [facility] 04/03/2024 15:39:41 section completed Cristina Spangler [place] - [facility] 04/03/2024 15:07:34 tonsillectomy completed Cristina Spangler [place] - [facility] 04/03/2024 15:07:53 Imaging Results None recorded. Procedure [...] mg tablet 2020 active Medicati on ID: 986923 B rand Name: pramipex ole Send Method: [...] mg tablet 2020 active Medicati on ID: 150499 B rand Name: furosemi de Send Method: E-Prescr ibed Sub s Allowed: subs OK Medic ationGen ericName : furosemi de Not Available Not Available Not Available azelastin e 137 mcg (0.1 %) nasal spray Inhale 2 spray twice a day as directed 2023 active Medicati on ID: 720708 D uration Value: 30 Brand Name: azelasti [...] aerosol inhaler 2020 active Medicati on ID: 574890 B rand Name: Symbicor t Send Method: E-Prescr ibed Sub s Allowed: subs OK Medic ationGen ericName : Symbicor t Not Available Not Available Not Available diclofena c 1 % topical gel APPLY 2 GRAMS TO THE AFFECTED AREA(S) BY TOPICAL ROUTE 4 TIMES PER DAY active Not Available Not Available No t Available cetirizin e 10 mg capsule active Medicati on ID: 389076 B rand Name: cetirizi ne Send Method: E-Prescr ibed Sub s Allowed: subs OK Medic ationGen ericName : cetirizi ne Not Available Not Available Not Available Flonase Allergy Relief 50 mcg/actua tion nasal spray,zoey pension active Medicati on ID: 819467 B rand Name: Flonase Allergy Relief S end Method: E-Prescr ibed Sub s Allowed: subs OK Medic ationGen ericName : Flonase Allergy Relief Not Available Not Available Not Available Vitals Date Recorded Body height Body mass index (BMI) Body weight Provider Name and Address Organization Details Last Updated DateTime 04/03/2024 167.64 cm 37.1 kg/m2 220539.25 g Cristina Spangler [place] - [facility] 04/03/2024 15:12:35 Date Recorded Body height Body mass index (BMI) Body weight Provider Name and Address Organization Details Last Updated DateTime 04/24/2024 167.64 cm 37.1 kg/m2 659189.25 g Cristina Spangler [facility] 04/24/2024 15:24:44 Date Recorded Body height Body weight Provider Name and Address Organization Details Last Updated DateTime 10/16/2024 167.64 cm 561265.25 g Cristina Spangler [facility] 10/16/2024 14:07:25 Social History None recorded. [...] Note [id number] TUCKER HASKINS MD [facility] [address] [address] 04/03/2024 14:33:30 04/03/2024 15:36:56 Otorrhea of left ear 6131533527 178672 H92.12 [id number] TUCKER HASKINS MD [facility] [address] [address] 04/24/2024 14:47:28 04/24/2024 16:12:28 Abnormal auditory perception 95789846 H93.293 Right Ear:Normal hearing.Ty pe A tympanogra m.Left Ear:Normal hearing.Ty pe A tympanogra m, rounded. Referred o talgia of left ear 8792210573 254017 H92.02 The patient complains of persistent chronic [...] disorders was provided. Pain of temporomandibular joint 53516101 M26.622 [id number] LÁZARO LOCKHART MD [facility] [address] [address] 07/16/2024 13:57:29 07/16/2024 14:19:25 Abnormal auditory perception 64524473 H93.292 Allergic rhinitis 067191 04 J30.9 [id number] TUCKER HASKINS MD [facility] [address] [address] 10/16/2024 13:53:46 10/16/2024 15:10:59 Abnormal auditory perception 72833680 H93.292 Right Ear:Did not test Left Ear:Essent ially normal hearing.Ty pe A tympanogra m, rounded. Referred o talgia of left ear 9365171025 453123 H92.02 Pain of temporomandibular joint 93221773 M26.622 Health Concerns Section Related Observation LastModified by Organization Detai ls LastModified Time None Recorded Concern Status LastModified by Organization Details LastModified Time None Recorded Advance Directives Directive None Recorded Payers Insurance Date Sequence Insurance Name Policy Number Policy Valenzuela Covered Member ID Valenzuela Member ID Guarantor Name 10/16/2024 1 [place] [id number] 3 Arnoldo Austin [id number] Rosamaria Austin Notes Date Note Type [...] been foul-smelling recently. TUCKER HASKINS MD [address] [facility],[address], [address], [facility] 04/03/2024 15:40:03 04/24/2024 text/html Patient with [...] topical Ciprodex drops. TUCKER HASKINS MD [address] [facility],[address], [address], [facility] 04/24/2024 16:16:13 07/16/2024 text/html ROS as [...] for her knees. LÁZARO DENIS MD [address] [facility] [address], [place], [address], [place] - [facility] 07/16/2024 14:18:06 10/16/2024 text/html Patient with [...] recommended use of Flonase TUCKER HASKINS MD [address] [place] [address], [place], [address], [facility] - [facility] 10/16/2024 15:11:34 OBGyn Episode No OBEpisode recorded.
--- OUTSIDE RECORDS SUMMARY | 2025-10-15 17:52 | XMS_ITS | Patient Health Record ---
Author Organization [facility] Jose ghassan Lopez Address [address] [facility] [place] [address] Care Team Providers Care Cylinder Inspector Name Role Phone Sagar ARAUJO, Kelsey Blackmon Primary Care Provider Un available Black, Sarahi Unavailable [phone] Reason For Referral No Information Medications Medication [...] Insured Coverage Start Date Coverage End Date [facility] [address] [place] [address] [id number] Arnoldo Austin Spouse - patient is the spouse of the insured Medical (General) History Medical History History ICD Code asthma back, hip, knee pain broken bones chicken pox headaches/migraines sinus conditions thyroid disorder Surgical History Surgery Date(Month/Year) section 1995 tonsillectomy disc surgery 2007
== END 2025-10-15 14:26 | disposition home or self-care (01) ==
LOC: HO.HMCC 13:38
PROVIDERS: PCP Internal Medicine; Visit Provider Internal Medicine
DX: E78.2 Mixed hyperlipidemia (principal); E66.01 Morbid (severe) obesity due to excess calories; Z68.41 Body mass index [BMI] 40.0-44.9, adult; E03.9 Hypothyroidism, unspecified; I10 Essential (primary) hypertension; J01.90 Acute sinusitis, unspecified